=== PATIENT | female | born 1945 | race African-American/Black ===

== ENCOUNTER 2019-06-13 21:02 | Inpatient (IN) | payer OTHER ==
[~2019-06-13] VITALS: Ht 142.2 cm; Wt 74.6 kg
[~2019-06-13 21:02] MED LIST: ASPI-1393 PO; GLIP5TAB12; HYDR-4134 PO; INSU3INS8; NIFE30TA94 PO; PRIL10
[2019-06-13] MEDS ORDERED: ASPIRIN 81MG TABLET PO ONE (21:30)
[2019-06-13 21:50] LABS: BASOPHILS % 0.9 % (0.0-2.0); EOSINOPHILS % 4.2 % (0.0-5.0); HEMATOCRIT. 32.3 % (36.0-48.0); HEMOGLOBIN. 10.5 g/dL (12.0-16.0); LYMPHOCYTES % 22.5 % (20.0-50.0); MEAN CORPUSCULAR HEMOGLOBIN 25.4 pg (28.0-32.0); MEAN CORPUSCULAR VOLUME 78.4 fL (81.0-99.0); MEAN PLATELET VOLUME 7.8 fl (7.4-10.4); MONOCYTES % 8.1 % (2.0-8.0); NEUTROPHILS % 64.3 % (40.0-76.0); PLATELET 279 x1000/uL (130-400); RED BLOOD CELL COUNT 4.12 mill/uL (4.2-5.4); RED CELL DISTRIBUTION WIDTH 17.2 % (11.6-14.6)
[2019-06-13] MEDS: NITROGLYCERIN 0.4MG TABLET SL SL PRN (21:56)
[2019-06-13 21:57] LABS: CHLORIDE 110 mEq/L (98-107)
[2019-06-13] MEDS ORDERED: HYDRALAZINE 20MG/ML VIAL IV ONE (22:45)
[2019-06-14] VITALS (14 sets, daily range): BP systolic 156–232; BP diastolic 63–103
[2019-06-14] MEDS: NITROGLYCERIN 0.4MG TABLET SL SL PRN (01:46)
[2019-06-14] MEDS: CLONIDINE 0.1MG TABLET PO PRN ×3 (05:16→17:50)
[2019-06-14 09:55] LABS: CREATINE KINASE MB FRACTION 1.3 ng/mL (0.5-3.6)
[2019-06-14] MEDS ORDERED: DOCUSATE SODIUM 100MG CAPSULE PO PRN (13:15)
[2019-06-14] MEDS ORDERED: HYDROCODONE/ACETAMINOPHEN 5/325MG TABLET PO PRN (13:15)
[2019-06-14] MEDS ORDERED: ONDANSETRON HCL 4MG/2ML INJ IV PRN (13:15)
[2019-06-14] MEDS ORDERED: LORAZEPAM 0.5MG TABLET PO PRN (13:15)
[2019-06-14] MEDS ORDERED: IPRATROPIUM/ALBUTEROL 0.5-3(2.5)MG/3ML NEB HHN PRN (13:15)
[2019-06-14] MEDS ORDERED: METO-539 MT (14:18)
[2019-06-14] MEDS ORDERED: POTA10CA42 MT (14:18)
[2019-06-14] MEDS ORDERED: ISOS60TA4 MT (14:18)
[2019-06-14] MEDS ORDERED: CRES10 MT (14:18)
[2019-06-14] MEDS ORDERED: LORA10TA7 MT (14:18)
[2019-06-14] MEDS ORDERED: AMLO10TA4 MT (14:18)
[2019-06-14] MEDS ORDERED: LISI10TA5 MT (14:18)
[2019-06-14] MEDS ORDERED: CLON-457 PO (14:18)
[2019-06-14] MEDS ORDERED: MELA5TAB19 PO (14:18)
[2019-06-14] MEDS: CLOPIDOGREL 75MG TABLET PO SCH (15:43)
[2019-06-14] MEDS: ISOSORBIDE MONONITRATE 30MG TABLET SR 24HR PO SCH (15:44)
[2019-06-14] MEDS: ACETAMINOPHEN 325MG TABLET PO PRN (16:16)
[2019-06-14] MEDS: LABETALOL 5MG/ML SYR 20 MG/4 ML SYRINGE IV PRN (16:58)
[2019-06-14] MEDS ORDERED: DEXTROSE 50% WATER 50ML SYRINGE IV PRN (17:30)
[2019-06-14] MEDS: BLOOD SUGAR DIAGNOSTIC STRIP TEST SCH ×2 (17:53→20:31)
[2019-06-14] MEDS: INSULIN LISPRO 100 UNITS/ML SUBCUT SCH ×2 (18:25→20:43)
[2019-06-14] MEDS ORDERED: LABETALOL 5MG/ML SYR 20 MG/4 ML SYRINGE IV NR ×2 (18:27→18:30)
[2019-06-14] MEDS: AMLODIPINE 5MG TABLET PO SCH (20:26)
[2019-06-14] MEDS: METOPROLOL TARTRATE 50MG TABLET PO SCH (20:27)
[2019-06-14] MEDS ORDERED: ATORVASTATIN CALCIUM 20MG TABLET PO SCH (21:00)
[2019-06-14] MEDS ORDERED: NIFEDIPINE XL 30MG TAB PO SCH (21:00)
[2019-06-14] MEDS: HYDRALAZINE HCL 50MG TABLET PO SCH (21:39)
[2019-06-15] VITALS (12 sets, daily range): BP systolic 131–181; BP diastolic 49–84
[2019-06-15] MEDS: CLONIDINE 0.1MG TABLET PO PRN ×2 (00:16→10:49)
[2019-06-15] MEDS: LABETALOL 5MG/ML SYR 20 MG/4 ML SYRINGE IV PRN ×2 (00:17→10:50)
[2019-06-15] MEDS: ACETAMINOPHEN 325MG TABLET PO PRN (05:28)
[2019-06-15] MEDS: HYDRALAZINE HCL 50MG TABLET PO SCH ×2 (05:28→14:26)
[2019-06-15 07:23] LABS: BASOPHILS % 0.5 % (0.0-2.0); EOSINOPHILS % 6.9 % (0.0-5.0); HEMATOCRIT. 29.3 % (36.0-48.0); HEMOGLOBIN. 9.6 g/dL (12.0-16.0); MEAN CORPUSCULAR HEMOGLOBIN 25.8 pg (28.0-32.0); MEAN CORPUSCULAR VOLUME 78.8 fL (81.0-99.0); MEAN PLATELET VOLUME 8.2 fl (7.4-10.4); MONOCYTES % 10.4 % (2.0-8.0); NEUTROPHILS % 62.2 % (40.0-76.0); PLATELET 235 x1000/uL (130-400); RED BLOOD CELL COUNT 3.72 mill/uL (4.2-5.4); RED CELL DISTRIBUTION WIDTH 17.1 % (11.6-14.6)
[2019-06-15 07:28] LABS: CHLORIDE 107 mEq/L (98-107)
[2019-06-15 07:33] LABS: PHOSPHORUS 5.7 mg/dL (2.5-4.9)
[2019-06-15 07:35] LABS: LDL CHOLESTEROL 82 mg/dL (5-100)
[2019-06-15 07:36] LABS: CREATINE KINASE 75 IU/L (26-192); HDL CHOLESTEROL 45 mg/dL (40-59)
[2019-06-15] MEDS: INSULIN LISPRO 100 UNITS/ML SUBCUT SCH ×3 (08:00→18:15)
[2019-06-15] MEDS: BLOOD SUGAR DIAGNOSTIC STRIP TEST SCH ×3 (08:08→18:06)
[2019-06-15 08:34] LABS: BG BASE EXCESS -7.6 mmol/L (-2.0-2.0); BG CARBOXYHEMOGLOBIN 0.3 % (0.5-1.5); BG DEOXYHEMOGLOBIN 1.9 % (0.0-5.0); BG FRACTION INSPIRED OXYGEN 21; BG HCO3 ACT 16.1 mmol/L (22.0-26.0); BG OXYGEN SATURATION 98.1 % (92.0-98.5); BG OXYHEMOGLOBIN 97.8 % (94.0-97.0); BG PCO2 27.1 mmHg (35.0-45.0); BG PH 7.391 (7.350-7.450); BG PO2 110.9 mmHg (75.0-100.0); BG SAMPLE SITE RIGHT BRACHIAL; BG VENT MODE ROOM AIR
[2019-06-15] MEDS ORDERED: NIFEDIPINE XL 30MG TAB PO SCH ×2 (09:00→21:00)
[2019-06-15] MEDS ORDERED: ASPIRIN 81MG EC TABLET PO SCH (09:00)
[2019-06-15] MEDS: ISOSORBIDE MONONITRATE 30MG TABLET SR 24HR PO SCH (09:15)
[2019-06-15] MEDS: METOPROLOL TARTRATE 50MG TABLET PO SCH (09:15)
[2019-06-15] MEDS: AMLODIPINE 5MG TABLET PO SCH (09:15)
[2019-06-15] MEDS: CLOPIDOGREL 75MG TABLET PO SCH (09:15)
[2019-06-15 09:49] LABS: CLARITY URINE CLEAR (CLEAR); COLOR URINE YELLOW (YELLOW); KETONES URINE NEGATIVE (NEGATIVE); LEUKOCYTE ESTERASE URINE NEGATIVE (NEGATIVE); NITRITE URINE NEGATIVE (NEGATIVE); OCCULT BLOOD URINE NEGATIVE (NEGATIVE); PH URINE 6.5 (4.5-8.0); PROTEIN URINE 3+ (NEGATIVE); UROBILINOGEN URINE 0.2 E.U./dL (0.2-1.0)
[2019-06-15] MEDS: CITRIC ACID/SODIUM CITRATE SOLN 15ML UDC PO SCH ×3 (12:36→18:16)
[2019-06-15] MEDS: CALCIUM ACETATE 667MG CAPSULE PO SCH ×2 (12:36→18:16)
== END 2019-06-15 21:00 | disposition short-term general hospital (02) | DRG 311 ==
LOC: ER 21:02 → 5EST 22:32 → EDBEDREQ 22:33 → EDBEDREQSVC 22:33 → ENRESERV 22:50
PROVIDERS: ADMIT Internal Medicine; ATTEND Internal Medicine
DX: I24.8 Other forms of acute ischemic heart disease (principal); N18.6 End stage renal disease; E44.1 Mild protein-calorie malnutrition; I12.0 Hypertensive chronic kidney disease with stage 5 chronic kidney disease or end stage renal disease; E87.2 Acidosis; I25.119 Atherosclerotic heart disease of native coronary artery with unspecified angina pectoris; E78.5 Hyperlipidemia, unspecified; D50.9 Iron deficiency anemia, unspecified; E11.22 Type 2 diabetes mellitus with diabetic chronic kidney disease; F17.210 Nicotine dependence, cigarettes, uncomplicated; J44.9 Chronic obstructive pulmonary disease, unspecified; G47.00 Insomnia, unspecified; Z79.4 Long term (current) use of insulin; Z82.49 Family history of ischemic heart disease and other diseases of the circulatory system; Z86.73 Personal history of transient ischemic attack (TIA), and cerebral infarction without residual deficits; Z83.3 Family history of diabetes mellitus; Z68.36 Body mass index [BMI] 36.0-36.9, adult
CPT/HCPCS: 36415; 36600; 71045; 76770; 80048; 80061; 81003; 82375; 82550; 82553; 82805; 82962; 83036; 83735; 83880; 84100; 84484; 93005; 93306; 93970; 99285; J0360; J1815; J3490

== ENCOUNTER 2021-08-26 01:17 | Inpatient (IN) | payer OTHER ==
[~2021-08-26] VITALS: Ht 147.3 cm; Wt 39.9 kg
[~2021-08-26 01:17] MED LIST changes: +AMLO10TA4 MT; -ASPI-1393 PO; +ASPI-1497 PO; +CLON-457 PO; +CRES10 MT; +ISOS60TA76 MT; +LISI10TA26 MT; +LORA10TA7 MT; +MELA5TAB19 PO; +METO-539 MT; +POTA10CA42 MT
[2021-08-26] MEDS ORDERED: ACETAMINOPHEN 325MG TABLET PO STA (01:53)
[2021-08-26] MEDS ORDERED: SODIUM CHLORIDE 0.9% 1,000 ML IV ONE (02:00)
[2021-08-26] MEDS ORDERED: ENALAPRIL 2.5MG/2ML VIAL 2ML IV ONE (02:00)
[2021-08-26 02:23] LABS: BASOPHILS % 0.7 % (0.0-2.0); EOSINOPHILS % 4.8 % (0.0-5.0); HEMATOCRIT. 44.9 % (36.0-48.0); HEMOGLOBIN. 13.9 g/dL (12.0-16.0); LYMPHOCYTES % 26.1 % (20.0-50.0); MEAN CORPUSCULAR HEMOGLOBIN 24.8 pg (28.0-32.0); MEAN CORPUSCULAR VOLUME 80.2 fL (81.0-99.0); MEAN PLATELET VOLUME 7.9 fl (7.4-10.4); MONOCYTES % 7.8 % (2.0-8.0); NEUTROPHILS % 60.6 % (40.0-76.0); PLATELET 371 x1000/uL (130-400); RED CELL DISTRIBUTION WIDTH 22.8 % (11.6-14.6)
[2021-08-26 02:29] LABS: CHLORIDE 101 mEq/L (98-107)
[2021-08-26] MEDS ORDERED: KETOROLAC 15MG/ML VIAL IV ONE (02:45)
[2021-08-26] MEDS ORDERED: KETOROLAC 30MG/ML VIAL IV NR (03:00)
[2021-08-26] MEDS ORDERED: PIPERACILLIN/TAZ 3.375G PREMIX 50 ML IV ONE (03:45)
[2021-08-26] MEDS ORDERED: VANCOMYCIN 1 G PREMIX 200 ML IV ONE (03:45)
[2021-08-26 04:28] LABS: PLATELET ESTIMATE NORMAL
[2021-08-26] MEDS ORDERED: LABETALOL 5MG/ML SYR 20 MG/4 ML SYRINGE IV NR (04:45)
[2021-08-26] MEDS ORDERED: ONDANSETRON HCL 4MG/2ML INJ IV STA (05:30)
[2021-08-26] MEDS ORDERED: NICARDIPINE 100 MG in SODIUM CHLORIDE 0.9% 60 ML IV NR (05:30)
[2021-08-26] MEDS ORDERED: MORPHINE SULFATE 4 MG/ML CPJ (NOT FOR IM USE) IV STA (05:30)
[2021-08-26] MEDS ORDERED: NALOXONE HCL 0.4MG/ML VIAL IV PRN (11:30)
[2021-08-26] MEDS ORDERED: MORPHINE SULFATE 2 MG/ML CPJ (NOT FOR IM USE) IV PRN ×2 (11:30→19:30)
[2021-08-26] MEDS: HYDRALAZINE 20MG/ML VIAL IV PRN ×2 (12:26→17:02)
[2021-08-26] MEDS: HYDRALAZINE HCL 100MG TABLET PO SCH ×2 (15:37→21:21)
[2021-08-26 15:54] LABS: HEPATITIS B SURFACE ANTIGEN NEGATIVE
[2021-08-26 20:00] VITALS: BP 195/78
[2021-08-26] MEDS ORDERED: CLONIDINE 0.1MG TABLET PO PRN (20:30)
[2021-08-26] MEDS ORDERED: DIPHENHYDRAMINE 50MG/ML VIAL IV PRN (20:30)
[2021-08-26] MEDS ORDERED: ACETAMINOPHEN 325MG TABLET PO PRN ×2 (20:30)
[2021-08-26] MEDS ORDERED: HYDROMORPHONE HCL/PF 2MG/ML CPJ IV PRN (20:30)
[2021-08-26] MEDS ORDERED: MAGNESIUM/ALUMINUM HYDROXIDE/SIMETHICONE 30ML UDC PO PRN (20:30)
[2021-08-26] MEDS ORDERED: ONDANSETRON HCL 4MG/2ML INJ IV PRN (20:30)
[2021-08-26] MEDS ORDERED: ZOLPIDEM TARTRATE 5MG TABLET PO PRN (20:30)
[2021-08-26] MEDS ORDERED: IPRATROPIUM/ALBUTEROL 0.5-3(2.5)MG/3ML NEB NEB PRN (20:30)
[2021-08-26] MEDS ORDERED: ALTEPLASE 2MG/VIAL ITC SCH (21:00)
[2021-08-26] MEDS: GABAPENTIN 100MG CAPSULE PO SCH (21:20)
[2021-08-26] MEDS: SODIUM CHLORIDE 0.9% INJ 3ML FLUSH IVF SCH (21:21)
[2021-08-26 22:00] VITALS: BP 135/72
[2021-08-27] VITALS: BP 193/77
[2021-08-27] MEDS: HYDRALAZINE 20MG/ML VIAL IV PRN (00:50)
[2021-08-27 04:00] VITALS: BP 144/70
[2021-08-27] MEDS: GABAPENTIN 100MG CAPSULE PO SCH ×3 (06:12→21:54)
[2021-08-27] MEDS: HYDRALAZINE HCL 100MG TABLET PO SCH (06:12)
[2021-08-27] MEDS: SODIUM CHLORIDE 0.9% INJ 3ML FLUSH IVF SCH ×3 (06:13→21:54)
[2021-08-27 07:42] LABS: BASOPHILS % 0.6 % (0.0-2.0); EOSINOPHILS % 0.2 % (0.0-5.0); HEMATOCRIT. 41.8 % (36.0-48.0); HEMOGLOBIN. 12.9 g/dL (12.0-16.0); MEAN CORPUSCULAR HEMOGLOBIN 24.7 pg (28.0-32.0); MEAN CORPUSCULAR VOLUME 79.9 fL (81.0-99.0); MEAN PLATELET VOLUME 8.2 fl (7.4-10.4); MONOCYTES % 11.5 % (2.0-8.0); NEUTROPHILS % 73.7 % (40.0-76.0); PLATELET 343 x1000/uL (130-400); RED BLOOD CELL COUNT 5.23 mill/uL (4.2-5.4); RED CELL DISTRIBUTION WIDTH 23.1 % (11.6-14.6)
[2021-08-27 07:56] LABS: PHOSPHORUS 8.6 mg/dL (2.5-4.9)
[2021-08-27 08:00] VITALS: BP 169/64
[2021-08-27 12:00] VITALS: BP 196/76
[2021-08-27] MEDS: LISINOPRIL 10MG TABLET PO SCH (13:30)
[2021-08-27] MEDS ORDERED: CLONIDINE 0.2MG TABLET PO PRN (13:35)
[2021-08-27] MEDS: CLONIDINE 0.2MG TABLET PO SCH ×2 (15:42→21:54)
[2021-08-27] MEDS: AMLODIPINE 10MG TABLET PO SCH (15:47)
[2021-08-27 16:00] VITALS: BP 140/52
[2021-08-27] MEDS ORDERED: DEXTROSE 50% WATER 50ML SYRINGE IV PRN (16:15)
[2021-08-27] MEDS: BLOOD SUGAR DIAGNOSTIC STRIP TEST SCH ×2 (16:40→21:44)
[2021-08-27] MEDS: INSULIN LISPRO 100 UNITS/ML SUBCUT SCH ×2 (17:10→21:44)
[2021-08-27] MEDS: SEVELAMER CARBONATE 800 MG TABLET PO SCH (18:05)
[2021-08-27 20:00] VITALS: BP 116/42
[2021-08-28] VITALS: BP 101/44
[2021-08-28 04:00] VITALS: BP 161/66
[2021-08-28] MEDS: BLOOD SUGAR DIAGNOSTIC STRIP TEST SCH ×3 (06:34→16:40)
[2021-08-28] MEDS: INSULIN LISPRO 100 UNITS/ML SUBCUT SCH ×3 (06:34→17:00)
[2021-08-28] MEDS: GABAPENTIN 100MG CAPSULE PO SCH ×2 (06:55→14:46)
[2021-08-28] MEDS: CLONIDINE 0.2MG TABLET PO SCH ×2 (06:55→14:50)
[2021-08-28] MEDS: SODIUM CHLORIDE 0.9% INJ 3ML FLUSH IVF SCH ×2 (06:55→14:46)
[2021-08-28] MEDS: SEVELAMER CARBONATE 800 MG TABLET PO SCH ×3 (06:57→16:29)
[2021-08-28 07:45] LABS: BASOPHILS % 0.7 % (0.0-2.0); EOSINOPHILS % 3.7 % (0.0-5.0); HEMATOCRIT. 41.2 % (36.0-48.0); HEMOGLOBIN. 12.7 g/dL (12.0-16.0); LYMPHOCYTES % 14.5 % (20.0-50.0); MEAN CORPUSCULAR HEMOGLOBIN 24.9 pg (28.0-32.0); MEAN CORPUSCULAR VOLUME 80.9 fL (81.0-99.0); MONOCYTES % 10.9 % (2.0-8.0); NEUTROPHILS % 70.2 % (40.0-76.0); PLATELET 343 x1000/uL (130-400); RED BLOOD CELL COUNT 5.09 mill/uL (4.2-5.4); RED CELL DISTRIBUTION WIDTH 22.8 % (11.6-14.6)
[2021-08-28 08:00] VITALS: BP 190/84
[2021-08-28 08:24] LABS: PHOSPHORUS 9.9 mg/dL (2.5-4.9)
[2021-08-28] MEDS ORDERED: HEPARIN SODIUM 1,000 UNIT/1ML VIAL IV SCH (08:30)
[2021-08-28] MEDS: AMLODIPINE 10MG TABLET PO SCH (10:23)
[2021-08-28] MEDS: LISINOPRIL 10MG TABLET PO SCH (10:23)
[2021-08-28 12:00] VITALS: BP 135/64
[2021-08-28 16:00] VITALS: BP 109/53
[2021-08-28 17:01] VITALS: BP 109/53
== END 2021-08-28 18:35 | disposition home or self-care (01) | DRG 291 ==
LOC: ER 01:17 → 7EST 05:31 → EDBEDREQSVC 15:01 → ENRESERV 16:58 → ER 18:35
PROVIDERS: ADMIT Internal Medicine; ATTEND Internal Medicine
PROC: 5A1D70Z Performance of Urinary Filtration, Intermittent, Less than 6 Hours Per Day (ICD-10-PCS; principal; 2021-08-26)
PROC: 5A1D70Z Performance of Urinary Filtration, Intermittent, Less than 6 Hours Per Day (ICD-10-PCS; 2021-08-28)
DX: I13.2 Hypertensive heart and chronic kidney disease with heart failure and with stage 5 chronic kidney disease, or end stage renal disease (principal); N18.6 End stage renal disease; I50.33 Acute on chronic diastolic (congestive) heart failure; G93.40 Encephalopathy, unspecified; D64.9 Anemia, unspecified; E11.22 Type 2 diabetes mellitus with diabetic chronic kidney disease; F32.A Depression, unspecified; I25.10 Atherosclerotic heart disease of native coronary artery without angina pectoris; K57.30 Diverticulosis of large intestine without perforation or abscess without bleeding; N28.1 Cyst of kidney, acquired; E78.5 Hyperlipidemia, unspecified; E11.40 Type 2 diabetes mellitus with diabetic neuropathy, unspecified; E11.51 Type 2 diabetes mellitus with diabetic peripheral angiopathy without gangrene; E11.42 Type 2 diabetes mellitus with diabetic polyneuropathy; M54.9 Dorsalgia, unspecified; Z20.822 Contact with and (suspected) exposure to COVID-19; Z90.49 Acquired absence of other specified parts of digestive tract; Z95.1 Presence of aortocoronary bypass graft; Z99.2 Dependence on renal dialysis; Z98.51 Tubal ligation status; Z88.5 Allergy status to narcotic agent; Z79.899 Other long term (current) drug therapy; Z79.4 Long term (current) use of insulin; Z87.891 Personal history of nicotine dependence; Z79.82 Long term (current) use of aspirin
CPT/HCPCS: 36415; 71045; 74176; 80048; 80053; 82962; 83036; 83605; 83735; 83880; 84100; 84484; 85025; 86705; 86709; 86803; 87340; 87426; 93005; 99291; C9803; J0360; J1170; J1644; J1815; J1885; J2270; J2405; J2543; J2997; J3370; J3490; J7030; J7050; U0003; U0005

== ENCOUNTER 2021-08-31 12:22 | Inpatient (IN) | payer OTHER ==
[~2021-08-31] VITALS: Ht 147.3 cm; Wt 50.8 kg
[2021-08-31] MEDS ORDERED: SODIUM CHLORIDE 0.9% 1,000 ML IV ONE (13:00)
[2021-08-31] MEDS ORDERED: CLONIDINE 0.2MG TABLET PO ONE (13:15)
[2021-08-31] MEDS ORDERED: LORAZEPAM 2MG/ML CPJ IV ONE (14:30)
[2021-08-31 15:26] LABS: CHLORIDE 104 mEq/L (98-107)
[2021-08-31 15:29] LABS: HEMATOCRIT. 35.9 % (36.0-48.0); HEMOGLOBIN. 10.8 g/dL (12.0-16.0); MEAN CORPUSCULAR VOLUME 79.9 fL (81.0-99.0); MEAN PLATELET VOLUME 8.4 fl (7.4-10.4); PLATELET 221 x1000/uL (130-400); RED CELL DISTRIBUTION WIDTH 22.1 % (11.6-14.6)
[2021-08-31] MEDS ORDERED: ASPIRIN 300MG SUPP PR ONE (17:15)
[2021-08-31] MEDS ORDERED: HYDRALAZINE 20MG/ML VIAL IV ONE (17:15)
[2021-08-31] MEDS ORDERED: IPRATROPIUM/ALBUTEROL 0.5-3(2.5)MG/3ML NEB HHN PRN (17:30)
[2021-08-31] MEDS ORDERED: NICARDIPINE 50 MG in SODIUM CHLORIDE 0.9% 230 ML IV PRN (17:30)
[2021-08-31] MEDS ORDERED: ACETAMINOPHEN 325MG TABLET PO PRN (17:30)
[2021-08-31] MEDS ORDERED: DOCUSATE SODIUM 100MG CAPSULE PO PRN (17:30)
[2021-08-31] MEDS ORDERED: LACTULOSE 20G/30ML UDC PO NR (17:30)
[2021-08-31] MEDS ORDERED: ONDANSETRON HCL 4MG/2ML INJ IV PRN (17:30)
[2021-08-31 18:05] LABS: PLATELET ESTIMATE NORMAL
[2021-08-31] MEDS: NICARDIPINE 40MG/200ML PREMIX 200 ML IV PRN (22:14)
[2021-08-31] MEDS: ACETAMINOPHEN 325MG TABLET PO PRN (23:12)
[2021-09-01 05:37] LABS: HEMATOCRIT. 40.2 % (36.0-48.0); HEMOGLOBIN. 12.3 g/dL (12.0-16.0); MEAN CORPUSCULAR HEMOGLOBIN 24.3 pg (28.0-32.0); MEAN CORPUSCULAR VOLUME 79.9 fL (81.0-99.0); MEAN PLATELET VOLUME 8.2 fl (7.4-10.4); PLATELET 232 x1000/uL (130-400); RED BLOOD CELL COUNT 5.04 mill/uL (4.2-5.4)
[2021-09-01] MEDS: ACETAMINOPHEN 325MG TABLET PO PRN ×2 (06:06→13:30)
[2021-09-01] MEDS: LORAZEPAM 0.5MG TABLET PO PRN ×2 (08:32→13:29)
[2021-09-01] MEDS: NICARDIPINE 40MG/200ML PREMIX 200 ML IV PRN (09:18)
[2021-09-01 09:23] LABS: CLARITY URINE CLEAR (CLEAR); COLOR URINE YELLOW (YELLOW); KETONES URINE NEGATIVE (NEGATIVE); LEUKOCYTE ESTERASE URINE NEGATIVE (NEGATIVE); NITRITE URINE NEGATIVE (NEGATIVE); OCCULT BLOOD URINE NEGATIVE (NEGATIVE); PH URINE 7.5 (4.5-8.0); PROTEIN URINE 4+ (NEGATIVE); SPECIFIC GRAVITY URINE 1.014 (1.005-1.030); UROBILINOGEN URINE 0.2 E.U./dL (0.2-1.0)
[2021-09-01] MEDS ORDERED: NALOXONE HCL 0.4MG/ML VIAL IV PRN (10:00)
[2021-09-01] MEDS: HYDROCODONE/ACETAMINOPHEN 5/325MG TABLET PO PRN ×3 (10:16→21:58)
[2021-09-01] MEDS ORDERED: LISINOPRIL 40MG TABLET PO SCH (11:15)
[2021-09-01] MEDS ORDERED: AMLODIPINE 10MG TABLET PO SCH (11:15)
[2021-09-01] MEDS ORDERED: SORBITOL 70% SOLN 30ML PO NR (13:00)
[2021-09-01 13:46] LABS: PLATELET ESTIMATE NORMAL
[2021-09-01] MEDS ORDERED: HYDRALAZINE HCL 25MG TABLET PO SCH (14:00)
[2021-09-01] MEDS ORDERED: MAGNESIUM CITRATE 300ML SOLUTION PO NR (14:30)
[2021-09-01] MEDS ORDERED: NICARDIPINE 50 MG in SODIUM CHLORIDE 0.9% 250 ML IV PRN (15:00)
[2021-09-01] MEDS: CLONIDINE 0.1MG TABLET PO SCH (16:25)
[2021-09-01] MEDS: DOCUSATE SODIUM 100MG CAPSULE PO SCH (17:00)
[2021-09-01] MEDS ORDERED: METOPROLOL TARTRATE 50MG TABLET PO SCH (21:00)
[2021-09-01] MEDS: METOPROLOL TARTRATE 25MG TABLET PO SCH (21:59)
[2021-09-02] MEDS: CLONIDINE 0.1MG TABLET PO SCH ×3 (01:29→14:00)
[2021-09-02] MEDS: HYDROCODONE/ACETAMINOPHEN 5/325MG TABLET PO PRN ×2 (01:31→05:41)
[2021-09-02] MEDS ORDERED: ISOSORBIDE MONONITRATE 60MG TABLET SR 24HR PO SCH (09:00)
[2021-09-02] MEDS: LIDOCAINE 5% PATCH TOP SCH (10:00)
[2021-09-02] MEDS: ASPIRIN 81MG EC TABLET PO SCH (12:03)
[2021-09-02] MEDS: HYDROCODONE/ACETAMINOPHEN 10/325MG TABLET PO PRN ×2 (12:04→21:32)
[2021-09-02] MEDS: FOLIC ACID/VITAMIN B COMP W-C TABLET PO SCH (12:18)
[2021-09-02] MEDS: LISINOPRIL 10MG TABLET PO SCH (13:25)
[2021-09-02] MEDS: NIFEDIPINE XL 30MG TAB PO SCH (14:51)
[2021-09-02 15:06] VITALS: BP 174/74
[2021-09-02 15:50] VITALS: BP 158/57
[2021-09-02 18:10] VITALS: BP 171/91
[2021-09-02] MEDS: FLUOXETINE HCL 10 MG CAPSULE PO SCH (18:10)
[2021-09-02] MEDS: SEVELAMER CARBONATE 800 MG TABLET PO SCH (18:11)
[2021-09-02] MEDS: DOCUSATE SODIUM 100MG CAPSULE PO SCH ×2 (18:16→18:18)
[2021-09-02 20:00] VITALS: BP 155/85
[2021-09-02 21:05] LABS: BASOPHILS % 0.5 % (0.0-2.0); EOSINOPHILS % 9.7 % (0.0-5.0); HEMATOCRIT. 40.7 % (36.0-48.0); HEMOGLOBIN. 12.2 g/dL (12.0-16.0); LYMPHOCYTES % 17.6 % (20.0-50.0); MEAN CORPUSCULAR HEMOGLOBIN 24.6 pg (28.0-32.0); MEAN CORPUSCULAR VOLUME 82.2 fL (81.0-99.0); MEAN PLATELET VOLUME 7.9 fl (7.4-10.4); MONOCYTES % 13.2 % (2.0-8.0); PLATELET 201 x1000/uL (130-400); RED BLOOD CELL COUNT 4.96 mill/uL (4.2-5.4); RED CELL DISTRIBUTION WIDTH 21.8 % (11.6-14.6)
[2021-09-02 21:17] LABS: PHOSPHORUS 5.1 mg/dL (2.5-4.9)
[2021-09-02] MEDS: METOPROLOL TARTRATE 25MG TABLET PO SCH ×2 (21:31→21:40)
[2021-09-02] MEDS: CLONIDINE 0.2MG TABLET PO SCH ×2 (21:31→22:00)
[2021-09-02 22:00] VITALS: BP 160/70
[2021-09-02] MEDS ORDERED: CLONIDINE 0.2MG TABLET PO SCH (22:00)
[2021-09-03] VITALS (11 sets, daily range): BP systolic 117–181; BP diastolic 59–84
[2021-09-03] MEDS: HYDROCODONE/ACETAMINOPHEN 10/325MG TABLET PO PRN ×2 (03:25→13:40)
[2021-09-03 06:20] LABS: HEMATOCRIT. 38.8 % (36.0-48.0); HEMOGLOBIN. 12.2 g/dL (12.0-16.0); MEAN CORPUSCULAR HEMOGLOBIN 24.9 pg (28.0-32.0); MEAN CORPUSCULAR VOLUME 79.3 fL (81.0-99.0); MEAN PLATELET VOLUME 8.5 fl (7.4-10.4); PLATELET 231 x1000/uL (130-400); RED CELL DISTRIBUTION WIDTH 21.4 % (11.6-14.6)
[2021-09-03 06:35] LABS: PHOSPHORUS 6.4 mg/dL (2.5-4.9)
[2021-09-03] MEDS: CLONIDINE 0.2MG TABLET PO SCH (06:46)
[2021-09-03] MEDS: HYDROCODONE/ACETAMINOPHEN 5/325MG TABLET PO PRN (06:47)
[2021-09-03] MEDS: SEVELAMER CARBONATE 800 MG TABLET PO SCH ×3 (08:50→17:46)
[2021-09-03] MEDS: FOLIC ACID/VITAMIN B COMP W-C TABLET PO SCH (08:50)
[2021-09-03] MEDS: DOCUSATE SODIUM 100MG CAPSULE PO SCH ×2 (08:50→17:46)
[2021-09-03] MEDS: LISINOPRIL 10MG TABLET PO SCH (08:51)
[2021-09-03] MEDS: FLUOXETINE HCL 10 MG CAPSULE PO SCH (08:51)
[2021-09-03] MEDS: METOPROLOL TARTRATE 25MG TABLET PO SCH (08:51)
[2021-09-03] MEDS: ASPIRIN 81MG EC TABLET PO SCH (08:51)
[2021-09-03] MEDS: NIFEDIPINE XL 30MG TAB PO SCH (09:58)
[2021-09-03] MEDS ORDERED: NIFE-33 PO (10:42)
[2021-09-03] MEDS ORDERED: METO25TA6 PO (10:42)
[2021-09-03] MEDS ORDERED: FLUO10CA28 PO (10:42)
[2021-09-03] MEDS ORDERED: CLON0.2T PO ×2 (10:42)
[2021-09-03] MEDS ORDERED: LIDO700A30 TOP (10:42)
[2021-09-03] MEDS: LIDOCAINE 5% PATCH TOP SCH (11:32)
[2021-09-03 13:09] LABS: PLATELET ESTIMATE NORMAL
[2021-09-03] MEDS ORDERED: CLONIDINE 0.1MG TABLET PO SCH (14:00)
[2021-09-03] MEDS ORDERED: HYDRALAZINE HCL 25MG TABLET PO SCH (14:00)
[2021-09-03] MEDS ORDERED: CLON0.1T MT (14:58)
== END 2021-09-03 18:45 | disposition home or self-care (01) | DRG 280 ==
LOC: ER 12:32 → MICUSO 17:01 → EDBEDREQ 17:12 → CANRESERV 22:52 → ENRESERV 22:52 → EDBEDREQTM 09-01 00:01 → EDBEDREQSVC 09-01 00:01 → 5EST 09-02 13:59
PROVIDERS: ADMIT Internal Medicine; ATTEND Internal Medicine
PROC: 5A1D70Z Performance of Urinary Filtration, Intermittent, Less than 6 Hours Per Day (ICD-10-PCS; principal; 2021-09-02)
DX: I21.4 Non-ST elevation (NSTEMI) myocardial infarction (principal); N18.6 End stage renal disease; I13.2 Hypertensive heart and chronic kidney disease with heart failure and with stage 5 chronic kidney disease, or end stage renal disease; I16.1 Hypertensive emergency; I50.9 Heart failure, unspecified; D25.9 Leiomyoma of uterus, unspecified; E11.22 Type 2 diabetes mellitus with diabetic chronic kidney disease; E11.51 Type 2 diabetes mellitus with diabetic peripheral angiopathy without gangrene; E78.5 Hyperlipidemia, unspecified; F17.210 Nicotine dependence, cigarettes, uncomplicated; I25.10 Atherosclerotic heart disease of native coronary artery without angina pectoris; J44.9 Chronic obstructive pulmonary disease, unspecified; Z20.822 Contact with and (suspected) exposure to COVID-19; K56.41 Fecal impaction; D64.9 Anemia, unspecified; N28.1 Cyst of kidney, acquired; Z79.899 Other long term (current) drug therapy; Z82.49 Family history of ischemic heart disease and other diseases of the circulatory system; Z87.440 Personal history of urinary (tract) infections; Z90.49 Acquired absence of other specified parts of digestive tract; Z95.1 Presence of aortocoronary bypass graft; Z99.2 Dependence on renal dialysis; Z88.5 Allergy status to narcotic agent
CPT/HCPCS: 36415; 71045; 74176; 80048; 80053; 81003; 82140; 82962; 83735; 83880; 84100; 84484; 85025; 87426; 93005; 93306; 99291; J0360; J3490; J7030; J7050

== ENCOUNTER 2022-03-11 09:59 | Inpatient (IN) | payer OTHER ==
[~2022-03-11] VITALS: Ht 165.1 cm; Wt 46.5 kg
[2022-03-11] VITALS (10 sets, daily range): BP systolic 153–185; BP diastolic 61–90
[~2022-03-11 09:59] MED LIST changes: -AMLO10TA4 MT; -CLON-457 PO; +CLON0.1T MT; +FLUO10CA28 PO; +LIDO700A30 TOP; -METO-539 MT; +METO25TA6 PO; +NIFE-33 PO; -NIFE30TA94 PO; -POTA10CA42 MT
[2022-03-11] MEDS ORDERED: ONDANSETRON HCL 4MG/2ML INJ IV STA ×2 (10:13→17:14)
[2022-03-11 10:43] LABS: BASOPHILS % 0.4 % (0.0-2.0); EOSINOPHILS % 1.5 % (0.0-5.0); HEMOGLOBIN. 14.3 g/dL (12.0-16.0); MEAN CORPUSCULAR HEMOGLOBIN 25.9 pg (28.0-32.0); MEAN CORPUSCULAR VOLUME 83.6 fL (81.0-99.0); MEAN PLATELET VOLUME 7.6 fl (7.4-10.4); MONOCYTES % 9.2 % (2.0-8.0); NEUTROPHILS % 77.9 % (40.0-76.0); PLATELET 261 x1000/uL (130-400); RED BLOOD CELL COUNT 5.51 mill/uL (4.2-5.4); RED CELL DISTRIBUTION WIDTH 20.2 % (11.6-14.6)
[2022-03-11 10:52] LABS: CHLORIDE 97 mEq/L (98-107)
[2022-03-11] MEDS ORDERED: LABETALOL 5MG/ML SYR 20 MG/4 ML SYRINGE IV ONE (11:15)
[2022-03-11] MEDS ORDERED: NITROGLYCERIN OINT 1GM/INCH UDPKT TD ONE (13:45)
[2022-03-11] MEDS ORDERED: HYDRALAZINE 20MG/ML VIAL IV ONE ×2 (13:45→15:45)
[2022-03-11] MEDS ORDERED: NICARDIPINE 40MG/200ML PREMIX 200 ML IV STA (16:37)
[2022-03-11] MEDS ORDERED: NICARDIPINE 40MG/200ML PREMIX 200 ML IV SCH (16:45)
[2022-03-11] MEDS ORDERED: MORPHINE SULFATE 4 MG/ML CPJ (NOT FOR IM USE) IV STA (17:14)
[2022-03-11] MEDS ORDERED: IPRATROPIUM/ALBUTEROL 0.5-3(2.5)MG/3ML NEB HHN PRN (19:15)
[2022-03-11] MEDS ORDERED: LORAZEPAM 1MG TABLET PO PRN (19:15)
[2022-03-11] MEDS ORDERED: LORAZEPAM 1MG TABLET PO NR (19:15)
[2022-03-11] MEDS ORDERED: DOCUSATE SODIUM 100MG CAPSULE PO PRN (19:15)
[2022-03-11] MEDS ORDERED: GUAIFENESIN 200MG/10ML SUGAR FREE UDC PO PRN (19:15)
[2022-03-11] MEDS ORDERED: ACETAMINOPHEN 325MG TABLET PO PRN ×2 (19:15)
[2022-03-11] MEDS ORDERED: MAGNESIUM/ALUMINUM HYDROXIDE/SIMETHICONE 30ML UDC PO PRN (19:15)
[2022-03-11] MEDS ORDERED: NICARDIPINE 40MG/200ML PREMIX 200 ML IV PRN ×2 (20:15→21:30)
[2022-03-11] MEDS ORDERED: DEXTROSE 50% WATER 50ML SYRINGE IV PRN (21:00)
[2022-03-11] MEDS: INSULIN LISPRO 100 UNITS/ML SUBCUT SCH (21:00)
[2022-03-11] MEDS: BLOOD SUGAR DIAGNOSTIC STRIP TEST SCH (21:00)
[2022-03-11] MEDS: ONDANSETRON HCL 4MG/2ML INJ IV PRN (21:49)
[2022-03-11 22:10] LABS: PHOSPHORUS 7.1 mg/dL (2.5-4.9)
[2022-03-11] MEDS: CLONIDINE 0.1MG TABLET PO PRN (22:10)
[2022-03-12] VITALS (102 sets, daily range): BP systolic 106–171; BP diastolic 51–99
[2022-03-12] MEDS ORDERED: NICARDIPINE 100 MG in SODIUM CHLORIDE 0.9% 60 ML IV PRN ×2
[2022-03-12] MEDS ORDERED: HYDROCODONE/ACETAMINOPHEN 5/325MG TABLET PO PRN (01:15)
[2022-03-12] MEDS ORDERED: AMLODIPINE 5MG TABLET PO SCH (01:15)
[2022-03-12] MEDS ORDERED: HYDRALAZINE 20MG/ML VIAL IV SCH (01:15)
[2022-03-12] MEDS: METOCLOPRAMIDE HCL 10MG/2ML VIAL IV SCH ×5 (01:44→23:25)
[2022-03-12] MEDS: NICARDIPINE 40MG/200ML PREMIX 200 ML IV PRN ×3 (01:46→08:35)
[2022-03-12] MEDS ORDERED: DIAZEPAM 5 MG/ML 2ML CPJ IV PRN (02:00)
[2022-03-12] MEDS: ONDANSETRON HCL 4MG/2ML INJ IV PRN ×3 (04:23→14:30)
[2022-03-12 05:13] LABS: BASOPHILS % 0.8 % (0.0-2.0); EOSINOPHILS % 0.1 % (0.0-5.0); HEMATOCRIT. 44.5 % (36.0-48.0); HEMOGLOBIN. 13.9 g/dL (12.0-16.0); LYMPHOCYTES % 8.6 % (20.0-50.0); MEAN CORPUSCULAR VOLUME 82.9 fL (81.0-99.0); MEAN PLATELET VOLUME 8.3 fl (7.4-10.4); MONOCYTES % 8.4 % (2.0-8.0); NEUTROPHILS % 82.1 % (40.0-76.0); PLATELET 278 x1000/uL (130-400); RED BLOOD CELL COUNT 5.37 mill/uL (4.2-5.4); RED CELL DISTRIBUTION WIDTH 20.2 % (11.6-14.6)
[2022-03-12 05:22] LABS: CHLORIDE 98 mEq/L (98-107)
[2022-03-12 05:39] LABS: CREATINE KINASE 33 IU/L (26-192); HDL CHOLESTEROL 82 mg/dL (40-59); LDL CHOLESTEROL 36 mg/dL (5-100)
[2022-03-12] MEDS: CLONIDINE 0.1MG TABLET PO PRN (06:01)
[2022-03-12] MEDS: BLOOD SUGAR DIAGNOSTIC STRIP TEST SCH ×4 (06:09→21:00)
[2022-03-12] MEDS ORDERED: HYDRALAZINE 20MG/ML VIAL IV PRN (06:30)
[2022-03-12] MEDS: INSULIN LISPRO 100 UNITS/ML SUBCUT SCH ×4 (06:32→21:00)
[2022-03-12] MEDS: MINOXIDIL 2.5MG TABLET PO SCH ×2 (08:14→22:00)
[2022-03-12] MEDS: CARVEDILOL 6.25 MG TABLET PO SCH ×2 (08:14→21:59)
[2022-03-12] MEDS: LISINOPRIL 40MG TABLET PO SCH (08:15)
[2022-03-12] MEDS: AMLODIPINE 5MG TABLET PO SCH ×2 (08:15→17:36)
[2022-03-12] MEDS: CLONIDINE HCL 0.3MG/24HR PATCH TD SCH ×2 (08:15→21:46)
[2022-03-12] MEDS: MORPHINE SULFATE 2 MG/ML CPJ (NOT FOR IM USE) IV PRN ×2 (08:23→12:39)
[2022-03-12] MEDS: ENOXAPARIN 30MG/0.3ML SYR SUBCUT SCH (08:23)
[2022-03-12] MEDS: LEVETIRACETAM 500MG TABLET PO SCH ×2 (08:29→21:58)
[2022-03-12 08:50] LABS: BG BASE EXCESS 0.4 mmol/L (-2.0-2.0); BG CARBOXYHEMOGLOBIN 0.9 % (0.5-1.5); BG DEOXYHEMOGLOBIN 1.3 % (0.0-5.0); BG FRACTION INSPIRED OXYGEN 30; BG HCO3 ACT 25.4 mmol/L (22.0-26.0); BG METHEMOGLOBIN 0.5 % (0.0-1.5); BG OXYGEN SATURATION 98.7 % (92.0-98.5); BG OXYHEMOGLOBIN 97.3 % (94.0-97.0); BG PCO2 42.4 mmHg (35.0-45.0); BG PH 7.396 (7.350-7.450); BG PO2 140.8 mmHg (75.0-100.0); BG SAMPLE SITE RIGHT RADIAL; BG TOTAL HEMOGLOBIN 14.3 g/dL (12.0-18.0); BG VENT MODE NASAL CANNULA
[2022-03-12] MEDS ORDERED: CLONIDINE HCL 0.3MG/24HR PATCH TD SCH (09:00)
[2022-03-12] MEDS ORDERED: NALOXONE HCL 0.4MG/ML VIAL IV PRN (09:00)
[2022-03-12] MEDS ORDERED: NICARDIPINE 50 MG in SODIUM CHLORIDE 0.9% 250 ML IV PRN (09:00)
[2022-03-12] MEDS ORDERED: LISI40TA13 MT (09:44)
[2022-03-12] MEDS ORDERED: CINA30TA5 PO (09:44)
[2022-03-12] MEDS ORDERED: AMLO10TA80 PO (09:44)
[2022-03-12] MEDS ORDERED: CLOP75TA33 PO (09:44)
[2022-03-12] MEDS ORDERED: METO-539 MT (09:44)
[2022-03-12] MEDS ORDERED: KEPP500 PO (09:44)
[2022-03-12] MEDS ORDERED: HYDR-4005 PO (09:44)
[2022-03-12] MEDS ORDERED: FOLI0.8T7 MT (09:44)
[2022-03-12] MEDS ORDERED: MINO2.5T2 PO (09:44)
[2022-03-12] MEDS ORDERED: SEVE800T8 MT (09:44)
[2022-03-12] MEDS ORDERED: ROSU20TA2 MT (09:50)
[2022-03-12] MEDS ORDERED: SODIUM POLYSTYRENE SULFONATE 15 G/60 ML BOT PO SCH (10:00)
[2022-03-12] MEDS ORDERED: DEXT 5%/LACTATED RINGERS 1,000 ML IV SCH (11:15)
[2022-03-12 11:51] LABS: INR 1.2; PROTHROMBIN TIME 13.2 sec (9.6-11.0)
[2022-03-12 13:45] LABS: HEPATITIS B SURFACE ANTIGEN NEGATIVE
[2022-03-12 14:05] LABS: AMYLASE 275 IU/L (25-115)
[2022-03-12] MEDS ORDERED: DOCUSATE SODIUM SUGAR FREE 100MG/10ML UDC NG PRN (15:00)
[2022-03-12] MEDS ORDERED: DOCUSATE SODIUM 100MG CAPSULE NG PRN (15:00)
[2022-03-13] VITALS (79 sets, daily range): BP systolic 121–179; BP diastolic 57–98
[2022-03-13 05:38] LABS: HEMATOCRIT. 44.2 % (36.0-48.0); MEAN CORPUSCULAR HEMOGLOBIN 26.3 pg (28.0-32.0); MEAN CORPUSCULAR VOLUME 83.2 fL (81.0-99.0); MEAN PLATELET VOLUME 7.8 fl (7.4-10.4); PLATELET 281 x1000/uL (130-400); RED BLOOD CELL COUNT 5.32 mill/uL (4.2-5.4); RED CELL DISTRIBUTION WIDTH 20.1 % (11.6-14.6)
[2022-03-13] MEDS: METOCLOPRAMIDE HCL 10MG/2ML VIAL IV SCH ×3 (06:07→17:21)
[2022-03-13] MEDS: BLOOD SUGAR DIAGNOSTIC STRIP TEST SCH ×4 (06:07→21:11)
[2022-03-13] MEDS: INSULIN LISPRO 100 UNITS/ML SUBCUT SCH ×4 (06:08→21:00)
[2022-03-13] MEDS: AMLODIPINE 5MG TABLET PO SCH ×2 (08:04→17:21)
[2022-03-13] MEDS: LEVETIRACETAM 500MG TABLET PO SCH ×2 (08:04→21:09)
[2022-03-13] MEDS: LISINOPRIL 40MG TABLET PO SCH (08:05)
[2022-03-13] MEDS: CARVEDILOL 6.25 MG TABLET PO SCH ×2 (08:05→21:09)
[2022-03-13] MEDS: MINOXIDIL 2.5MG TABLET PO SCH (08:05)
[2022-03-13] MEDS: ENOXAPARIN 30MG/0.3ML SYR SUBCUT SCH (08:07)
[2022-03-13] MEDS ORDERED: BISACODYL 10MG SUPP PR SCH (08:45)
[2022-03-13 09:52] LABS: PLATELET ESTIMATE NORMAL
[2022-03-13 11:36] LABS: CLARITY URINE CLEAR (CLEAR); COLOR URINE YELLOW (YELLOW); KETONES URINE NEGATIVE (NEGATIVE); LEUKOCYTE ESTERASE URINE NEGATIVE (NEGATIVE); NITRITE URINE NEGATIVE (NEGATIVE); OCCULT BLOOD URINE NEGATIVE (NEGATIVE); PH URINE >=9.0 (4.5-8.0); PROTEIN URINE 4+ (NEGATIVE); SPECIFIC GRAVITY URINE 1.014 (1.005-1.030); UROBILINOGEN URINE 0.2 E.U./dL (0.2-1.0)
[2022-03-13 12:13] LABS: *AMPHETAMINES SCREEN URINE NEGATIVE (NEGATIVE); *BARBITURATES SCREEN URINE NEGATIVE (NEGATIVE); *BENZODIAZEPINES SCREEN URINE NEGATIVE (NEGATIVE); *COCAINE SCREEN URINE NEGATIVE (NEGATIVE); CANNABINOID URINE SCREEN NEGATIVE (NEGATIVE); METHADONE URINE SCREEN NEGATIVE (NEGATIVE); OPIATES URINE SCREEN PRESUMTIVE POSITIVE (NEGATIVE); PHENCYCLIDINE URINE SCREEN NEGATIVE (NEGATIVE)
[2022-03-13] MEDS ORDERED: HYDRALAZINE HCL 50MG TABLET PO SCH (13:00)
[2022-03-13] MEDS: CLONIDINE 0.1MG TABLET PO SCH ×2 (14:31→21:11)
[2022-03-13] MEDS ORDERED: MINOXIDIL 2.5MG TABLET PO SCH (21:00)
== END 2022-03-13 22:30 | disposition short-term general hospital (02) | DRG 280 ==
LOC: ER 10:12 → MICUNO 17:17 → EDBEDREQTM 17:21 → EDBEDREQSVC 17:21 → EDBEDREQ 17:21 → ENRESERV 19:34
PROVIDERS: ADMIT Specialist; ATTEND Family Medicine Adult Medicine
PROC: 5A1D70Z Performance of Urinary Filtration, Intermittent, Less than 6 Hours Per Day (ICD-10-PCS; principal; 2022-03-12)
PROC: 5A1D70Z Performance of Urinary Filtration, Intermittent, Less than 6 Hours Per Day (ICD-10-PCS; 2022-03-13)
DX: I21.4 Non-ST elevation (NSTEMI) myocardial infarction (principal); J96.01 Acute respiratory failure with hypoxia; N18.6 End stage renal disease; K85.90 Acute pancreatitis without necrosis or infection, unspecified; I13.2 Hypertensive heart and chronic kidney disease with heart failure and with stage 5 chronic kidney disease, or end stage renal disease; I16.1 Hypertensive emergency; N17.9 Acute kidney failure, unspecified; N25.81 Secondary hyperparathyroidism of renal origin; D64.9 Anemia, unspecified; E78.5 Hyperlipidemia, unspecified; I25.10 Atherosclerotic heart disease of native coronary artery without angina pectoris; D25.9 Leiomyoma of uterus, unspecified; E11.22 Type 2 diabetes mellitus with diabetic chronic kidney disease; E83.39 Other disorders of phosphorus metabolism; E87.5 Hyperkalemia; F32.A Depression, unspecified; F41.9 Anxiety disorder, unspecified; G40.909 Epilepsy, unspecified, not intractable, without status epilepticus; I35.0 Nonrheumatic aortic (valve) stenosis; I50.9 Heart failure, unspecified; K56.41 Fecal impaction; R77.8 Other specified abnormalities of plasma proteins; R74.8 Abnormal levels of other serum enzymes; Z20.822 Contact with and (suspected) exposure to COVID-19; I24.9 Acute ischemic heart disease, unspecified; E11.42 Type 2 diabetes mellitus with diabetic polyneuropathy; H26.9 Unspecified cataract; Z79.02 Long term (current) use of antithrombotics/antiplatelets; Z79.82 Long term (current) use of aspirin; Z79.84 Long term (current) use of oral hypoglycemic drugs; Z79.899 Other long term (current) drug therapy; Z82.49 Family history of ischemic heart disease and other diseases of the circulatory system; Z87.891 Personal history of nicotine dependence; I25.2 Old myocardial infarction; Z90.49 Acquired absence of other specified parts of digestive tract; Z95.1 Presence of aortocoronary bypass graft; Z99.2 Dependence on renal dialysis; Z88.1 Allergy status to other antibiotic agents; Z88.8 Allergy status to other drugs, medicaments and biological substances; Z30.2 Encounter for sterilization; Z79.4 Long term (current) use of insulin; G62.9 Polyneuropathy, unspecified
CPT/HCPCS: 36415; 36600; 71045; 74018; 74176; 74181; 80048; 80053; 80061; 80076; 80305; 81003; 82150; 82375; 82550; 82805; 82962; 82977; 83605; 83735; 84100; 84145; 84443; 84484; 85025; 86705; 86709; 86803; 87340; 87426; 93005; 93306; 97162; 97166; 97535; 99285; C9803; J0360; J1650; J1815; J2270; J2405; J2765; J3490; J7050; J7121

== ENCOUNTER 2022-08-30 20:17 | Emergency (ER) | payer OTHER ==
[~2022-08-30] VITALS: Ht 162.6 cm; Wt 47.2 kg
[~2022-08-30 20:17] MED LIST changes: +AMLO10TA80 PO; +CINA30TA5 PO; +CLOP75TA33 PO; +FOLI0.8T7 MT; +HYDR-4005 PO; +KEPP500 PO; +LISI40TA13 MT; +METO-539 MT; +MINO2.5T2 PO; +ROSU20TA2 MT; +SEVE800T8 MT
[2022-08-30] MEDS ORDERED: HYDRALAZINE 20MG/ML VIAL IV NR (23:00)
[2022-08-30 23:17] LABS: CHLORIDE 96 mEq/L (98-107)
[2022-08-30 23:26] LABS: HEMOGLOBIN. 10.3 g/dL (12.0-16.0); MEAN CORPUSCULAR HEMOGLOBIN 29.3 pg (28.0-32.0); MEAN CORPUSCULAR VOLUME 88.2 fL (81.0-99.0); MEAN PLATELET VOLUME 7.9 fl (7.4-10.4); PLATELET 210 x1000/uL (130-400); RED BLOOD CELL COUNT 3.51 mill/uL (4.2-5.4); RED CELL DISTRIBUTION WIDTH 18.2 % (11.6-14.6)
[2022-08-31] MEDS ORDERED: DIAZEPAM 2 MG TABLET PO ONE (01:30)
[2022-08-31] MEDS ORDERED: DIAZEPAM 2 MG TABLET PO NR (01:45)
[2022-08-31] MEDS ORDERED: CARVEDILOL 6.25 MG TABLET PO ONE (03:15)
[2022-08-31] MEDS ORDERED: ISOSORBIDE MONONITRATE 30MG TABLET SR 24HR PO SCH (03:15)
[2022-08-31 04:12] LABS: PLATELET ESTIMATE NORMAL
[2022-08-31 08:50] VITALS: BP 174/77
== END 2022-08-31 08:51 | disposition short-term general hospital (02) ==
LOC: ER 20:17 → CANBEDREQ 08-31 09:07
DX: R07.89 Other chest pain (principal); I10 Essential (primary) hypertension; I50.9 Heart failure, unspecified; I12.0 Hypertensive chronic kidney disease with stage 5 chronic kidney disease or end stage renal disease; E11.22 Type 2 diabetes mellitus with diabetic chronic kidney disease; N18.6 End stage renal disease; Z99.2 Dependence on renal dialysis; Z79.899 Other long term (current) drug therapy; Z20.822 Contact with and (suspected) exposure to COVID-19
CPT/HCPCS: 36415; 71045; 80053; 82962; 83880; 84484; 85025; 85379; 87426; 93005; 96374; 99285; C9803; J0360

== ENCOUNTER 2022-11-02 03:18 | Emergency (ER) | payer OTHER ==
[~2022-11-02] VITALS: Ht 149.9 cm; Wt 50.0 kg
[2022-11-02] MEDS ORDERED: NITROGLYCERIN 0.2MG/HR PATCH TOP ONE (05:00)
[2022-11-02] MEDS ORDERED: CLONIDINE 0.2MG TABLET PO ONE (05:00)
[2022-11-02] MEDS ORDERED: NITROGLYCERIN 0.2MG/HR PATCH TOP NR (05:00)
[2022-11-02] MEDS ORDERED: HYDRALAZINE 20MG/ML VIAL IV ONE (05:00)
[2022-11-02 05:22] LABS: HEMATOCRIT. 35.4 % (36.0-48.0); HEMOGLOBIN. 11.5 g/dL (12.0-16.0); MEAN CORPUSCULAR HEMOGLOBIN 27.8 pg (28.0-32.0); MEAN CORPUSCULAR VOLUME 85.4 fL (81.0-99.0); MEAN PLATELET VOLUME 8.3 fl (7.4-10.4); PLATELET 262 x1000/uL (130-400); RED BLOOD CELL COUNT 4.14 mill/uL (4.2-5.4); RED CELL DISTRIBUTION WIDTH 16.5 % (11.6-14.6)
[2022-11-02 05:28] LABS: CHLORIDE 97 mEq/L (98-107)
[2022-11-02 07:16] LABS: PLATELET ESTIMATE NORMAL
[2022-11-02 11:30] VITALS: BP 184/73
== END 2022-11-02 14:05 | disposition short-term general hospital (02) ==
LOC: ER 03:36
DX: I16.1 Hypertensive emergency (principal); I10 Essential (primary) hypertension; E11.9 Type 2 diabetes mellitus without complications; Z20.822 Contact with and (suspected) exposure to COVID-19; Z88.6 Allergy status to analgesic agent; Z88.9 Allergy status to unspecified drugs, medicaments and biological substances; Z88.5 Allergy status to narcotic agent; Z79.899 Other long term (current) drug therapy; Z86.59 Personal history of other mental and behavioral disorders; Z79.82 Long term (current) use of aspirin
CPT/HCPCS: 36415; 71045; 80053; 83880; 84484; 85025; 87426; 93005; 96374; 99285; C9803; J0360

== ENCOUNTER 2023-01-28 21:03 | Emergency (ER) | payer OTHER ==
[2023-01-28 22:57] LABS: BASOPHILS % 1.3 % (0.0-2.0); EOSINOPHILS % 5.1 % (0.0-5.0); HEMATOCRIT. 26.2 % (36.0-48.0); HEMOGLOBIN. 8.4 g/dL (12.0-16.0); MEAN CORPUSCULAR HEMOGLOBIN 26.7 pg (28.0-32.0); MEAN PLATELET VOLUME 8.6 fl (7.4-10.4); MONOCYTES % 13.6 % (2.0-8.0); PLATELET 235 x1000/uL (130-400); RED BLOOD CELL COUNT 3.15 mill/uL (4.2-5.4); RED CELL DISTRIBUTION WIDTH 19.4 % (11.6-14.6)
[2023-01-28 23:16] LABS: CHLORIDE 97 mEq/L (98-107)
[2023-01-29 00:38] LABS: CLARITY URINE CLEAR (CLEAR); COLOR URINE YELLOW (YELLOW); KETONES URINE NEGATIVE (NEGATIVE); LEUKOCYTE ESTERASE URINE NEGATIVE (NEGATIVE); NITRITE URINE NEGATIVE (NEGATIVE); OCCULT BLOOD URINE NEGATIVE (NEGATIVE); PH URINE 8.5 (4.5-8.0); PROTEIN URINE 3+ (NEGATIVE); SPECIFIC GRAVITY URINE 1.011 (1.005-1.030); UROBILINOGEN URINE 0.2 E.U./dL (0.2-1.0)
[2023-01-29] MEDS ORDERED: ACETAMINOPHEN 325MG TABLET PO ONE (01:30)
[2023-01-29 05:24] VITALS: BP 138/58
== END 2023-01-29 05:35 | disposition home or self-care (01) ==
LOC: ER 21:03
DX: S06.0XAA Concussion with loss of consciousness status unknown, initial encounter (principal); I25.2 Old myocardial infarction; I10 Essential (primary) hypertension; E11.9 Type 2 diabetes mellitus without complications; Z88.5 Allergy status to narcotic agent; Z88.6 Allergy status to analgesic agent; Z88.9 Allergy status to unspecified drugs, medicaments and biological substances; Z86.59 Personal history of other mental and behavioral disorders; Z79.899 Other long term (current) drug therapy; W18.30XA Fall on same level, unspecified, initial encounter; Y93.89 Activity, other specified; Y92.89 Other specified places as the place of occurrence of the external cause; Y99.8 Other external cause status
CPT/HCPCS: 36415; 72170; 80053; 81003; 84484; 85025; 93005; 99285

== ENCOUNTER 2023-02-25 20:28 | Emergency (ER) | payer OTHER ==
[2023-02-25 23:27] LABS: EOSINOPHILS % 2.5 % (0.0-5.0); HEMOGLOBIN. 9.2 g/dL (12.0-16.0); LYMPHOCYTES % 13.1 % (20.0-50.0); MEAN CORPUSCULAR HEMOGLOBIN 27.6 pg (28.0-32.0); MEAN CORPUSCULAR VOLUME 83.6 fL (81.0-99.0); MEAN PLATELET VOLUME 8.2 fl (7.4-10.4); MONOCYTES % 12.3 % (2.0-8.0); NEUTROPHILS % 71.1 % (40.0-76.0); PLATELET 453 x1000/uL (130-400); RED BLOOD CELL COUNT 3.35 mill/uL (4.2-5.4); RED CELL DISTRIBUTION WIDTH 19.1 % (11.6-14.6)
[2023-02-25 23:36] LABS: CHLORIDE 96 mEq/L (98-107)
[2023-02-26] MEDS ORDERED: LEVETIRACETAM 1000MG PREMIX 100 ML IV ONE (00:15)
[2023-02-26] MEDS ORDERED: LORAZEPAM 1MG TABLET PO ONE (01:45)
[2023-02-26 06:39] VITALS: BP 132/65; PULSE 82; RESP 13; TEMP 98.3
== END 2023-02-26 07:05 | disposition short-term general hospital (02) ==
LOC: ER 20:28
DX: G40.509 Epileptic seizures related to external causes, not intractable, without status epilepticus (principal); G93.40 Encephalopathy, unspecified; I25.2 Old myocardial infarction; I10 Essential (primary) hypertension; E11.22 Type 2 diabetes mellitus with diabetic chronic kidney disease; N18.9 Chronic kidney disease, unspecified; Z20.822 Contact with and (suspected) exposure to COVID-19; Z79.82 Long term (current) use of aspirin; Z88.5 Allergy status to narcotic agent; Z88.6 Allergy status to analgesic agent; Z88.9 Allergy status to unspecified drugs, medicaments and biological substances; Z79.899 Other long term (current) drug therapy; Z86.59 Personal history of other mental and behavioral disorders
CPT/HCPCS: 99285; 70450; 71045; 80053; 85025; 84484; 36415; 93005; 96365; 87426; J1953; C9803

== ENCOUNTER 2023-03-23 13:41 | Emergency (ER) | payer OTHER ==
[~2023-03-23] VITALS: Ht 165.1 cm; Wt 61.0 kg
[2023-03-23 14:13] VITALS: TEMP 98.5; O2SAT 98
[2023-03-23] MEDS ORDERED: SODIUM CHLORIDE 0.9% 1,000 ML IV ONE (14:15)
[2023-03-23] MEDS ORDERED: CLONIDINE 0.2MG TABLET PO ONE (15:00)
[2023-03-23] MEDS ORDERED: CLONIDINE 0.1MG TABLET PO NR (15:15)
[2023-03-23 15:20] LABS: BASOPHILS % 1.3 % (0.0-2.0); EOSINOPHILS % 2.5 % (0.0-5.0); HEMATOCRIT. 34.9 % (36.0-48.0); HEMOGLOBIN. 11.3 g/dL (12.0-16.0); LYMPHOCYTES % 22.3 % (20.0-50.0); MEAN CORPUSCULAR HEMOGLOBIN 27.1 pg (28.0-32.0); MEAN CORPUSCULAR VOLUME 83.7 fL (81.0-99.0); MEAN PLATELET VOLUME 7.1 fl (7.4-10.4); MONOCYTES % 10.4 % (2.0-8.0); NEUTROPHILS % 63.5 % (40.0-76.0); PLATELET 281 x1000/uL (130-400); RED BLOOD CELL COUNT 4.17 mill/uL (4.2-5.4); RED CELL DISTRIBUTION WIDTH 20.4 % (11.6-14.6)
[2023-03-23 15:30] LABS: INR 1.1; PARTIAL THROMBOPLASTIN TIME 34.4 sec (23.4-31.0); PROTHROMBIN TIME 11.4 sec (9.6-11.0)
[2023-03-23 15:32] LABS: CHLORIDE 98 mEq/L (98-107)
[2023-03-23] MEDS ORDERED: ASPIRIN 81MG TABLET PO ONE (17:00)
[2023-03-23] MEDS ORDERED: CLONIDINE 0.1MG TABLET PO ONE (17:30)
[2023-03-23] MEDS ORDERED: HYDRALAZINE 20MG/ML VIAL IV ONE (17:30)
[2023-03-23] MEDS ORDERED: CARVEDILOL 6.25 MG TABLET PO SCH (18:30)
[2023-03-23 20:46] VITALS: BP 151/63; PULSE 78; RESP 14
[2023-03-23] MEDS ORDERED: LEVETIRACETAM 500MG TABLET PO SCH (21:00)
[2023-03-23] MEDS ORDERED: ATORVASTATIN CALCIUM 40MG TABLET PO SCH (21:00)
[2023-03-23] MEDS ORDERED: AMLODIPINE 10MG TABLET PO SCH (21:00)
[2023-03-23] MEDS ORDERED: MINOXIDIL 2.5MG TABLET PO SCH (21:00)
[2023-03-23] MEDS ORDERED: POLYETHYLENE GLYCOL 3350 (17GM) 1 DOSE PACK PO SCH (21:00)
[2023-03-23] MEDS ORDERED: LISINOPRIL 40MG TABLET PO SCH (21:00)
[2023-03-23] MEDS ORDERED: HYDRALAZINE HCL 50MG TABLET PO SCH (22:00)
[2023-03-24] MEDS ORDERED: ISOSORBIDE MONONITRATE 30MG TABLET SR 24HR PO SCH (09:00)
== END 2023-03-23 20:57 | disposition short-term general hospital (02) ==
LOC: ER 13:41 → CANBEDREQ 18:58 → ER 20:57
DX: R41.82 Altered mental status, unspecified (principal); I10 Essential (primary) hypertension; I12.0 Hypertensive chronic kidney disease with stage 5 chronic kidney disease or end stage renal disease; E11.22 Type 2 diabetes mellitus with diabetic chronic kidney disease; N18.6 End stage renal disease; I25.2 Old myocardial infarction; Z99.2 Dependence on renal dialysis; Z79.899 Other long term (current) drug therapy
CPT/HCPCS: 99285; 96374; 70450; 71045; 96361; 80053; 82962; 83880; 85025; 85610; 85730; 84484; 36415; 93005; J0360; J7030

== ENCOUNTER 2023-04-07 22:14 | Inpatient (IN) | payer OTHER ==
[~2023-04-07] VITALS: Ht 157.5 cm; Wt 54.4 kg
[2023-04-07 22:16] VITALS: O2SAT 98
[2023-04-07] MEDS ORDERED: MORPHINE SULFATE 4 MG/ML CPJ (NOT FOR IM USE) IV STA (23:05)
[2023-04-07] MEDS ORDERED: ONDANSETRON HCL 4MG/2ML INJ IV STA (23:05)
[2023-04-07] MEDS ORDERED: SODIUM CHLORIDE 0.9% 1,000 ML IV ONE (23:15)
[2023-04-07 23:39] LABS: CHLORIDE 95 mEq/L (98-107); INDEX HEMOLYSI 2 (1-3); INDEX ICTERIC 1 (1-4); INDEX LIPEMIC 1 (1-3); POTASSIUM 5.3 mEq/L (3.5-5.1); SODIUM 129 mEq/L (136-145)
[2023-04-07 23:40] LABS: HEMOGLOBIN. 9.3 g/dL (12.0-16.0); MEAN CORPUSCULAR HEMOGLOBIN 27.4 pg (28.0-32.0); MEAN CORPUSCULAR HGB CONC 33.2 g/dL (31.0-37.0); MEAN CORPUSCULAR VOLUME 82.6 fL (81.0-99.0); MEAN PLATELET VOLUME 8.3 fl (7.4-10.4); PLATELET 280 x1000/uL (130-400); RED BLOOD CELL COUNT 3.39 mill/uL (4.2-5.4); RED CELL DISTRIBUTION WIDTH 20.6 % (11.6-14.6); WHITE BLOOD COUNT 5.6 x1000/uL (4.5-11.0)
[2023-04-07 23:45] LABS: DIFFERENTIAL COMMENT 1
[2023-04-08] VITALS (9 sets, daily range): BP systolic 110–145; BP diastolic 52–79; PULSE 72–86; RESP 16–18; TEMP 97.1–97.9
[2023-04-08] LABS: ALANINE AMINOTRANSFERASE 12 IU/L (13-61); ALBUMIN 3.4 g/dL (3.4-5.0); ASPARTATE AMINOTRANSFERASE 13 IU/L (15-37); BILIRUBIN TOTAL 0.3 mg/dL (0.1-1.0); CALCIUM 9.1 mg/dL (8.5-10.1); CARBON DIOXIDE 24 mEq/L (21-32); GLUCOSE 87 mg/dL (70-105); NT PRO B-TYPE NATRIURETIC PEP 34251 pg/mL (5-125); UREA NITROGEN BLOOD 61 mg/dL (7-21)
[2023-04-08 00:07] LABS: TROPONIN I HIGH SENSITIVITY 141 ng/L (<54)
[2023-04-08 00:27] LABS: PLATELET ESTIMATE NORMAL
[2023-04-08 01:50] LABS: TROPONIN I HIGH SENSITIVITY 124 ng/L (<54)
[2023-04-08] MEDS ORDERED: LABETALOL 5MG/ML SYR 20 MG/4 ML SYRINGE IV ONE (03:30)
[2023-04-08] MEDS ORDERED: ONDANSETRON HCL 4MG/2ML INJ IV ONE (03:30)
[2023-04-08] MEDS ORDERED: IPRATROPIUM/ALBUTEROL 0.5-3(2.5)MG/3ML NEB HHN PRN (04:45)
[2023-04-08] MEDS ORDERED: ZOLPIDEM TARTRATE 5MG TABLET PO PRN (04:45)
[2023-04-08] MEDS ORDERED: LORAZEPAM 0.5MG TABLET PO PRN (04:45)
[2023-04-08] MEDS ORDERED: GUAIFENESIN 200MG/10ML SUGAR FREE UDC PO PRN (04:45)
[2023-04-08] MEDS ORDERED: CLONIDINE 0.1MG TABLET PO PRN (04:45)
[2023-04-08] MEDS ORDERED: ONDANSETRON HCL 4MG/2ML INJ IV PRN (04:45)
[2023-04-08] MEDS ORDERED: NITROGLYCERIN 0.4MG TABLET SL SL NR (05:45)
[2023-04-08 05:53] LABS: INDEX HEMOLYSI 1 (1-3)
[2023-04-08] MEDS ORDERED: SODIUM CHLORIDE 0.9% 1,000 ML IV NR (06:00)
[2023-04-08] MEDS ORDERED: IOHEXOL-350 100 ML BOTTLE ONE (06:04)
[2023-04-08 06:06] LABS: T4 FREE 0.74 ng/dL (0.76-1.46); THYROID STIMULATING HORMONE 1.1 uIU/mL (0.36-3.74)
[2023-04-08 06:23] LABS: FOLIC ACID (FOLATE) SERUM >20 ng/mL ng/mL (>5.38); VITAMIN B12 SERUM 569 pg/mL (211-911)
[2023-04-08] MEDS: LISINOPRIL 40MG TABLET PO SCH (06:45)
[2023-04-08] MEDS ORDERED: NITROGLYCERIN 50MCG/ML 10ML VIAL (CATH LAB) IV ONE (07:00)
[2023-04-08] MEDS ORDERED: NICARDIPINE 100MCG/ML 10ML VIAL (CATH LAB) IV ONE (07:00)
[2023-04-08] MEDS: ENOXAPARIN 30MG/0.3ML SYR SUBCUT SCH (09:00)
[2023-04-08] MEDS: AMLODIPINE 10MG TABLET PO SCH (09:00)
[2023-04-08 09:41] LABS: CREATINE KINASE MB FRACTION 9.6 ng/mL (0.5-3.6)
[2023-04-08 09:42] LABS: CREATINE KINASE MB FRACTION 3.1 ng/mL (0.5-3.6)
[2023-04-08] MEDS: ASPIRIN 81MG TABLET PO SCH (12:00)
[2023-04-08] MEDS ORDERED: DIPHENHYDRAMINE 50MG/ML VIAL ONE (12:26)
[2023-04-08] MEDS ORDERED: HEPARIN 1000 UNITS/ML 10ML ONE (12:26)
[2023-04-08] MEDS ORDERED: VERAPAMIL HCL 2.5 MG/1 ML 2ML VIAL IV ONE (12:26)
[2023-04-08] MEDS ORDERED: MIDAZOLAM HCL 2 MG/2 ML VIAL ONE (12:26)
[2023-04-08] MEDS ORDERED: FENTANYL CITRATE/PF 50MCG/ML 2ML VIAL ONE (12:26)
[2023-04-08] MEDS ORDERED: LIDOCAINE HCL 1% 20ML VIAL (Pyxis) INJ ONE (12:26)
[2023-04-08] MEDS ORDERED: IODIXANOL 320MG/ML 100 ML BOTTLE IV ONE ×2 (12:26→13:21)
[2023-04-08] MEDS ORDERED: ATROPINE SULFATE 1MG/10ML SYR IV PRN (13:45)
[2023-04-08] MEDS ORDERED: ONDANSETRON HCL 4MG/2ML INJ ONE (13:55)
[2023-04-08 17:58] LABS: INR 1.1; PROTHROMBIN TIME 11.4 sec (9.6-11.0)
[2023-04-08 18:19] LABS: CREATINE KINASE MB FRACTION 13.1 ng/mL (0.5-3.6)
[2023-04-08] MEDS: LEVETIRACETAM 500MG TABLET PO SCH (21:53)
[2023-04-08] MEDS: ATORVASTATIN CALCIUM 40MG TABLET PO SCH (21:53)
[2023-04-08] MEDS: EPOETIN ALFA 4000UNITS/ML VIAL SUBCUT SCH (21:54)
[2023-04-09] VITALS (63 sets, daily range): BP systolic 87–189; BP diastolic 46–93; PULSE 66–105; RESP 8–29; TEMP 97.7–100.9
[2023-04-09 06:45] LABS: HEMATOCRIT. 32.8 % (36.0-48.0); HEMOGLOBIN. 10.6 g/dL (12.0-16.0); MEAN CORPUSCULAR HEMOGLOBIN 26.9 pg (28.0-32.0); MEAN CORPUSCULAR HGB CONC 32.2 g/dL (31.0-37.0); MEAN CORPUSCULAR VOLUME 83.6 fL (81.0-99.0); MEAN PLATELET VOLUME 8.7 fl (7.4-10.4); PLATELET 297 x1000/uL (130-400); RED BLOOD CELL COUNT 3.93 mill/uL (4.2-5.4); RED CELL DISTRIBUTION WIDTH 20.7 % (11.6-14.6); WHITE BLOOD COUNT 6.6 x1000/uL (4.5-11.0)
[2023-04-09 06:56] LABS: POTASSIUM 5.2 mEq/L (3.5-5.1)
[2023-04-09 07:02] LABS: CALCIUM 9.3 mg/dL (8.5-10.1); CREATININE 4.9 mg/dL (0.6-1.3); PHOSPHORUS 4.4 mg/dL (2.5-4.9)
[2023-04-09 07:12] LABS: DIFFERENTIAL COMMENT 1
[2023-04-09] MEDS: DEXTROSE 50% WATER 50ML SYRINGE IV PRN (07:53)
[2023-04-09] MEDS: INSULIN LISPRO 100 UNITS/ML SUBCUT SCH ×4 (07:59→21:00)
[2023-04-09] MEDS ORDERED: DEXTROSE 50% WATER 50ML SYRINGE IV PRN (08:00)
[2023-04-09] MEDS ORDERED: METOPROLOL TARTRATE 25MG TABLET PO NR (08:15)
[2023-04-09] MEDS: NITROGLYCERIN 0.4MG TABLET SL SL PRN ×2 (08:22→09:31)
[2023-04-09] MEDS ORDERED: MORPHINE SULFATE 2 MG/ML CPJ (NOT FOR IM USE) IV NR (08:30)
[2023-04-09] MEDS ORDERED: NITROGLYCERIN 0.4MG TABLET SL SL PRN (08:30)
[2023-04-09 09:38] LABS: BASOPHILS % 0.6 % (0.0-2.0); EOSINOPHILS % 2.5 % (0.0-5.0); HEMATOCRIT. 32.2 % (36.0-48.0); HEMOGLOBIN. 10.3 g/dL (12.0-16.0); LYMPHOCYTES % 7.6 % (20.0-50.0); MEAN CORPUSCULAR HEMOGLOBIN 26.4 pg (28.0-32.0); MEAN CORPUSCULAR HGB CONC 31.9 g/dL (31.0-37.0); MEAN CORPUSCULAR VOLUME 82.9 fL (81.0-99.0); MEAN PLATELET VOLUME 8.1 fl (7.4-10.4); MONOCYTES % 10.5 % (2.0-8.0); NEUTROPHILS % 78.8 % (40.0-76.0); PLATELET 298 x1000/uL (130-400); RED BLOOD CELL COUNT 3.89 mill/uL (4.2-5.4); RED CELL DISTRIBUTION WIDTH 21.4 % (11.6-14.6); WHITE BLOOD COUNT 7.8 x1000/uL (4.5-11.0)
[2023-04-09] MEDS: METOPROLOL TARTRATE 25MG TABLET PO SCH ×2 (09:42→20:34)
[2023-04-09 09:43] LABS: CHLORIDE 102 mEq/L (98-107); INDEX HEMOLYSI 1 (1-3); INDEX ICTERIC 1 (1-4); INDEX LIPEMIC 1 (1-3); POTASSIUM 5.1 mEq/L (3.5-5.1); SODIUM 134 mEq/L (136-145)
[2023-04-09] MEDS: FOLIC ACID/VITAMIN B COMP W-C TABLET PO SCH (09:43)
[2023-04-09] MEDS: ASPIRIN 81MG TABLET PO SCH (09:43)
[2023-04-09] MEDS: ENOXAPARIN 30MG/0.3ML SYR SUBCUT SCH (09:43)
[2023-04-09] MEDS: AMLODIPINE 10MG TABLET PO SCH (09:43)
[2023-04-09] MEDS: LISINOPRIL 40MG TABLET PO SCH (09:43)
[2023-04-09] MEDS: LEVETIRACETAM 500MG TABLET PO SCH ×2 (09:43→20:34)
[2023-04-09] MEDS: CLOPIDOGREL 75MG TABLET PO SCH (09:43)
[2023-04-09 09:54] LABS: ALANINE AMINOTRANSFERASE 14 IU/L (13-61); ALBUMIN 2.8 g/dL (3.4-5.0); AMYLASE 92 IU/L (25-115); ASPARTATE AMINOTRANSFERASE 21 IU/L (15-37); BILIRUBIN TOTAL 0.5 mg/dL (0.1-1.0); CALCIUM 8.7 mg/dL (8.5-10.1); CARBON DIOXIDE 22 mEq/L (21-32); CREATINE KINASE 71 IU/L (26-192); GLUCOSE 139 mg/dL (70-105); PROTEIN TOTAL 6.8 g/dL (6.0-8.3); UREA NITROGEN BLOOD 41 mg/dL (7-21)
[2023-04-09 10:19] LABS: CREATININE 5.3 mg/dL (0.6-1.3); TROPONIN I HIGH SENSITIVITY 2938 ng/L (<54)
[2023-04-09 10:37] LABS: INR 1.1; PROTHROMBIN TIME 11.7 sec (9.6-11.0)
[2023-04-09] MEDS: BLOOD SUGAR DIAGNOSTIC STRIP TEST SCH ×3 (11:15→20:29)
[2023-04-09 12:45] LABS: TROPONIN I HIGH SENSITIVITY 2728 ng/L (<54)
[2023-04-09] MEDS: HYDRALAZINE HCL 50MG TABLET PO SCH ×2 (13:20→22:00)
[2023-04-09] MEDS: ACETAMINOPHEN 325MG TABLET PO PRN (13:20)
[2023-04-09] MEDS ORDERED: LACTULOSE 20G/30ML UDC PO NR (13:30)
[2023-04-09] MEDS ORDERED: NA PHOS,M-B/NA PHOS,DI-BA ENEMA 118ML PR PRN (13:30)
[2023-04-09] MEDS: DOCUSATE SODIUM 100MG CAPSULE PO SCH (16:15)
[2023-04-09 18:19] LABS: PLATELET ESTIMATE NORMAL
[2023-04-09] MEDS: ATORVASTATIN CALCIUM 40MG TABLET PO SCH (20:33)
[2023-04-09] MEDS: SENNOSIDES 8.6MG TABLET PO SCH (20:34)
[2023-04-10] VITALS (69 sets, daily range): BP systolic 85–205; BP diastolic 24–127; PULSE 67–90; RESP 9–30; TEMP 97.6–99
[2023-04-10] MEDS: DEXTROSE 50% WATER 50ML SYRINGE IV PRN (05:42)
[2023-04-10] MEDS: HYDRALAZINE HCL 50MG TABLET PO SCH (05:42)
[2023-04-10 05:53] LABS: BASOPHILS % 0.7 % (0.0-2.0); EOSINOPHILS % 2.9 % (0.0-5.0); HEMATOCRIT. 30.4 % (36.0-48.0); HEMOGLOBIN. 9.7 g/dL (12.0-16.0); LYMPHOCYTES % 9.9 % (20.0-50.0); MEAN CORPUSCULAR HEMOGLOBIN 26.7 pg (28.0-32.0); MEAN CORPUSCULAR HGB CONC 31.9 g/dL (31.0-37.0); MEAN CORPUSCULAR VOLUME 83.7 fL (81.0-99.0); MEAN PLATELET VOLUME 8.8 fl (7.4-10.4); MONOCYTES % 11.8 % (2.0-8.0); NEUTROPHILS % 74.7 % (40.0-76.0); PLATELET 272 x1000/uL (130-400); RED BLOOD CELL COUNT 3.64 mill/uL (4.2-5.4); RED CELL DISTRIBUTION WIDTH 20.7 % (11.6-14.6); WHITE BLOOD COUNT 7.6 x1000/uL (4.5-11.0)
[2023-04-10 06:01] LABS: POTASSIUM 5.4 mEq/L (3.5-5.1)
[2023-04-10 06:11] LABS: ALBUMIN 2.7 g/dL (3.4-5.0); BILIRUBIN DIRECT 0.1 mg/dL (0.0-0.2); BILIRUBIN TOTAL 0.4 mg/dL (0.1-1.0); CALCIUM 9.3 mg/dL (8.5-10.1); PHOSPHORUS 5.1 mg/dL (2.5-4.9); PROTEIN TOTAL 6.7 g/dL (6.0-8.3)
[2023-04-10 06:16] LABS: CREATININE 6.6 mg/dL (0.6-1.3)
[2023-04-10] MEDS: BLOOD SUGAR DIAGNOSTIC STRIP TEST SCH ×4 (06:28→20:12)
[2023-04-10] MEDS: INSULIN LISPRO 100 UNITS/ML SUBCUT SCH ×4 (06:29→21:00)
[2023-04-10] MEDS ORDERED: CALCITRIOL 0.25MCG CAPSULE PO SCH (09:00)
[2023-04-10] MEDS: AMLODIPINE 10MG TABLET PO SCH (10:04)
[2023-04-10] MEDS: DOCUSATE SODIUM 100MG CAPSULE PO SCH ×2 (10:04→18:13)
[2023-04-10] MEDS: FOLIC ACID/VITAMIN B COMP W-C TABLET PO SCH (10:05)
[2023-04-10] MEDS: ENOXAPARIN 30MG/0.3ML SYR SUBCUT SCH (10:05)
[2023-04-10] MEDS: ASPIRIN 81MG TABLET PO SCH (10:06)
[2023-04-10] MEDS: ISOSORBIDE MONONITRATE 30MG TABLET SR 24HR PO SCH (10:06)
[2023-04-10] MEDS: LEVETIRACETAM 500MG TABLET PO SCH ×2 (10:06→20:11)
[2023-04-10] MEDS: CLOPIDOGREL 75MG TABLET PO SCH (10:07)
[2023-04-10] MEDS: LISINOPRIL 40MG TABLET PO SCH (10:07)
[2023-04-10] MEDS: METOPROLOL TARTRATE 25MG TABLET PO SCH ×2 (10:07→20:11)
[2023-04-10] MEDS: ACETAMINOPHEN 325MG TABLET PO PRN (13:38)
[2023-04-10] MEDS: HYDRALAZINE HCL 100MG TABLET PO SCH ×2 (13:38→21:56)
[2023-04-10] MEDS ORDERED: LACTULOSE 20G/30ML UDC PO NR (16:00)
[2023-04-10] MEDS: SENNOSIDES 8.6MG TABLET PO SCH (20:11)
[2023-04-10] MEDS: ATORVASTATIN CALCIUM 40MG TABLET PO SCH (20:12)
[2023-04-10] MEDS: EPOETIN ALFA 4000UNITS/ML VIAL SUBCUT SCH (20:12)
[2023-04-11] VITALS (46 sets, daily range): BP systolic 108–162; BP diastolic 35–88; PULSE 59–84; RESP 11–26; TEMP 97.6–98.5
[2023-04-11] MEDS: NITROGLYCERIN 0.4MG TABLET SL SL PRN (00:07)
[2023-04-11] MEDS: BLOOD SUGAR DIAGNOSTIC STRIP TEST SCH ×4 (05:27→21:34)
[2023-04-11] MEDS: HYDRALAZINE HCL 100MG TABLET PO SCH ×3 (05:27→21:34)
[2023-04-11 05:33] LABS: BASOPHILS % 0.7 % (0.0-2.0); EOSINOPHILS % 2.8 % (0.0-5.0); HEMATOCRIT. 28.6 % (36.0-48.0); HEMOGLOBIN. 9.2 g/dL (12.0-16.0); LYMPHOCYTES % 7.7 % (20.0-50.0); MEAN CORPUSCULAR HGB CONC 32.2 g/dL (31.0-37.0); MEAN CORPUSCULAR VOLUME 83.8 fL (81.0-99.0); MEAN PLATELET VOLUME 8.6 fl (7.4-10.4); MONOCYTES % 12.2 % (2.0-8.0); NEUTROPHILS % 76.6 % (40.0-76.0); PLATELET 248 x1000/uL (130-400); RED BLOOD CELL COUNT 3.42 mill/uL (4.2-5.4); RED CELL DISTRIBUTION WIDTH 20.8 % (11.6-14.6); WHITE BLOOD COUNT 7.4 x1000/uL (4.5-11.0)
[2023-04-11] MEDS: INSULIN LISPRO 100 UNITS/ML SUBCUT SCH ×4 (05:34→21:00)
[2023-04-11 05:37] LABS: INDEX HEMOLYSI 1 (1-3); INDEX ICTERIC 1 (1-4); INDEX LIPEMIC 1 (1-3)
[2023-04-11 05:59] LABS: ALANINE AMINOTRANSFERASE 20 IU/L (13-61); ALBUMIN 2.7 g/dL (3.4-5.0); ASPARTATE AMINOTRANSFERASE 18 IU/L (15-37); BILIRUBIN TOTAL 0.5 mg/dL (0.1-1.0); CALCIUM 9.4 mg/dL (8.5-10.1); CARBON DIOXIDE 24 mEq/L (21-32); CHLORIDE 103 mEq/L (98-107); CREATININE 4.9 mg/dL (0.6-1.3); GLUCOSE 164 mg/dL (70-105); POTASSIUM 4.3 mEq/L (3.5-5.1); SODIUM 135 mEq/L (136-145); UREA NITROGEN BLOOD 30 mg/dL (7-21)
[2023-04-11] MEDS: FOLIC ACID/VITAMIN B COMP W-C TABLET PO SCH (09:03)
[2023-04-11] MEDS: CLOPIDOGREL 75MG TABLET PO SCH (09:03)
[2023-04-11] MEDS: DOCUSATE SODIUM 100MG CAPSULE PO SCH ×2 (09:03→17:00)
[2023-04-11] MEDS: LEVETIRACETAM 500MG TABLET PO SCH ×2 (09:03→21:33)
[2023-04-11] MEDS: LISINOPRIL 40MG TABLET PO SCH (09:04)
[2023-04-11] MEDS: ASPIRIN 81MG TABLET PO SCH (09:04)
[2023-04-11] MEDS: ISOSORBIDE MONONITRATE 30MG TABLET SR 24HR PO SCH (09:04)
[2023-04-11] MEDS: METOPROLOL TARTRATE 25MG TABLET PO SCH ×2 (09:05→21:33)
[2023-04-11] MEDS: ENOXAPARIN 30MG/0.3ML SYR SUBCUT SCH (09:06)
[2023-04-11] MEDS: AMLODIPINE 10MG TABLET PO SCH (09:07)
[2023-04-11] MEDS: SENNOSIDES 8.6MG TABLET PO SCH (21:33)
[2023-04-11] MEDS: ATORVASTATIN CALCIUM 40MG TABLET PO SCH (21:33)
== END 2023-04-12 00:01 | disposition short-term general hospital (02) | DRG 280 ==
LOC: ER 22:14 → 7WST 04-08 02:49 → MICUSO 04-09 09:00 → 7WST 04-11 22:40
PROVIDERS: ADMIT Internal Medicine; ATTEND Internal Medicine
PROC: 4A023N7 Measurement of Cardiac Sampling and Pressure, Left Heart, Percutaneous Approach (ICD-10-PCS; principal; 2023-04-08)
PROC: B211YZZ Fluoroscopy of Multiple Coronary Arteries using Other Contrast (ICD-10-PCS; 2023-04-08)
PROC: B212YZZ Fluoroscopy of Single Coronary Artery Bypass Graft using Other Contrast (ICD-10-PCS; 2023-04-08)
PROC: B41FYZZ Fluoroscopy of Right Lower Extremity Arteries using Other Contrast (ICD-10-PCS; 2023-04-08)
PROC: B218YZZ Fluoroscopy of Left Internal Mammary Bypass Graft using Other Contrast (ICD-10-PCS; 2023-04-08)
PROC: B310YZZ Fluoroscopy of Thoracic Aorta using Other Contrast (ICD-10-PCS; 2023-04-08)
PROC: 5A1D70Z Performance of Urinary Filtration, Intermittent, Less than 6 Hours Per Day (ICD-10-PCS; 2023-04-08)
PROC: 5A1D70Z Performance of Urinary Filtration, Intermittent, Less than 6 Hours Per Day (ICD-10-PCS; 2023-04-10)
PROC: 5A1D70Z Performance of Urinary Filtration, Intermittent, Less than 6 Hours Per Day (ICD-10-PCS; 2023-04-11)
DX: I21.4 Non-ST elevation (NSTEMI) myocardial infarction (principal); N18.6 End stage renal disease; E87.1 Hypo-osmolality and hyponatremia; G40.509 Epileptic seizures related to external causes, not intractable, without status epilepticus; I13.2 Hypertensive heart and chronic kidney disease with heart failure and with stage 5 chronic kidney disease, or end stage renal disease; E11.22 Type 2 diabetes mellitus with diabetic chronic kidney disease; D72.10 Eosinophilia, unspecified; E11.649 Type 2 diabetes mellitus with hypoglycemia without coma; E78.00 Pure hypercholesterolemia, unspecified; E21.3 Hyperparathyroidism, unspecified; F32.A Depression, unspecified; K21.9 Gastro-esophageal reflux disease without esophagitis; D63.1 Anemia in chronic kidney disease; F03.90 Unspecified dementia, unspecified severity, without behavioral disturbance, psychotic disturbance, mood disturbance, and anxiety; I25.10 Atherosclerotic heart disease of native coronary artery without angina pectoris; I27.20 Pulmonary hypertension, unspecified; I50.9 Heart failure, unspecified; J44.9 Chronic obstructive pulmonary disease, unspecified; Z99.2 Dependence on renal dialysis; Z79.4 Long term (current) use of insulin; Z79.82 Long term (current) use of aspirin; Z79.84 Long term (current) use of oral hypoglycemic drugs; Z79.899 Other long term (current) drug therapy; Z86.73 Personal history of transient ischemic attack (TIA), and cerebral infarction without residual deficits; Z87.891 Personal history of nicotine dependence; Z90.49 Acquired absence of other specified parts of digestive tract; Z95.1 Presence of aortocoronary bypass graft; Z82.49 Family history of ischemic heart disease and other diseases of the circulatory system
CPT/HCPCS: 36415; 71045; 71275; 74174; 74176; 80048; 80053; 80076; 82150; 82550; 82553; 82607; 82746; 82962; 83036; 83540; 83550; 83605; 83735; 83880; 83930; 84100; 84145; 84439; 84443; 84484; 85025; 90935; 93005; 93306; 93970; 99285; J0885; J1200; J1644; J1650; J2250; J2270; J2405; J3010; J3490; J7030; Q9967

== ENCOUNTER 2023-05-12 08:35 | Emergency (ER) | payer OTHER ==
[~2023-05-12] VITALS: Ht 162.6 cm; Wt 56.0 kg
[2023-05-12 08:43] VITALS: O2SAT 98
[2023-05-12 09:10] LABS: MEAN CORPUSCULAR HGB CONC 31.6 g/dL (31.0-37.0); MEAN CORPUSCULAR VOLUME 85.4 fL (81.0-99.0); MEAN PLATELET VOLUME 8.3 fl (7.4-10.4); PLATELET 217 x1000/uL (130-400); RED BLOOD CELL COUNT 2.19 mill/uL (4.2-5.4); RED CELL DISTRIBUTION WIDTH 23.1 % (11.6-14.6)
[2023-05-12 09:14] LABS: CHLORIDE 94 mEq/L (98-107); INDEX HEMOLYSI 1 (1-3); INDEX ICTERIC 1 (1-4); INDEX LIPEMIC 1 (1-3); POTASSIUM 3.9 mEq/L (3.5-5.1); SODIUM 134 mEq/L (136-145)
[2023-05-12 09:16] LABS: DIFFERENTIAL COMMENT 1
[2023-05-12 09:26] LABS: HEMOGLOBIN. 5.9 g/dL (12.0-16.0)
[2023-05-12 09:27] LABS: HEMATOCRIT. 18.7 % (36.0-48.0)
[2023-05-12 09:39] LABS: ALANINE AMINOTRANSFERASE 6 IU/L (13-61); ALBUMIN 3.1 g/dL (3.4-5.0); ASPARTATE AMINOTRANSFERASE 10 IU/L (15-37); BILIRUBIN TOTAL 0.3 mg/dL (0.1-1.0); CARBON DIOXIDE 31 mEq/L (21-32); CREATININE 4.3 mg/dL (0.6-1.3); GLUCOSE 149 mg/dL (70-105); NT PRO B-TYPE NATRIURETIC PEP 57779 pg/mL (5-125); PROTEIN TOTAL 6.2 g/dL (6.0-8.3); TROPONIN I HIGH SENSITIVITY 21 ng/L (<54); UREA NITROGEN BLOOD 32 mg/dL (7-21)
[2023-05-12 10:46] LABS: HYPOCHROMASIA 1+
[2023-05-12 10:47] LABS: ANISOCYTOSIS 2+; PLATELET ESTIMATE NORMAL
[2023-05-12 14:55] LABS: TROPONIN I HIGH SENSITIVITY 25 ng/L (<54)
[2023-05-12 17:10] VITALS: BP 134/56; PULSE 65; RESP 16; TEMP 98.4
== END 2023-05-12 17:12 | disposition short-term general hospital (02) ==
LOC: ER 08:49
DX: I12.0 Hypertensive chronic kidney disease with stage 5 chronic kidney disease or end stage renal disease (principal); E11.22 Type 2 diabetes mellitus with diabetic chronic kidney disease; N18.6 End stage renal disease; D64.9 Anemia, unspecified; Z79.899 Other long term (current) drug therapy; E78.00 Pure hypercholesterolemia, unspecified; Z88.5 Allergy status to narcotic agent; Z88.6 Allergy status to analgesic agent; Z88.9 Allergy status to unspecified drugs, medicaments and biological substances; Z86.59 Personal history of other mental and behavioral disorders
CPT/HCPCS: 99291; 87426; 80053; 83880; 85025; 86850; 86900; 86901; 86920; 84484; 36415; 71045; 93005; C9803; P9016

== ENCOUNTER 2023-09-20 02:11 | Emergency (ER) | payer MEDICARE, OTHER ==
[~2023-09-20] VITALS: Ht 157.5 cm; Wt 55.0 kg
[~2023-09-20 02:11] MED LIST changes: -CRES10 MT; -GLIP5TAB12; +GLIP5TAB22; -LISI10TA26 MT; -METO25TA6 PO
[2023-09-20 02:13] VITALS: O2SAT 99
[2023-09-20 02:51] LABS: POTASSIUM 4.5 mEq/L (3.5-5.1)
[2023-09-20 02:59] LABS: HEMATOCRIT. 40.4 % (36.0-48.0); HEMOGLOBIN. 12.2 g/dL (12.0-16.0); MEAN CORPUSCULAR HEMOGLOBIN 23.9 pg (28.0-32.0); MEAN CORPUSCULAR HGB CONC 30.2 g/dL (31.0-37.0); MEAN CORPUSCULAR VOLUME 79.3 fL (81.0-99.0); MEAN PLATELET VOLUME 8.7 fl (7.4-10.4); PLATELET 326 x1000/uL (130-400); RED CELL DISTRIBUTION WIDTH 21.8 % (11.6-14.6); WHITE BLOOD COUNT 4.8 x1000/uL (4.5-11.0)
[2023-09-20] MEDS ORDERED: HYDRALAZINE 20MG/ML VIAL IV ONE (03:00)
[2023-09-20 03:11] LABS: DIFFERENTIAL COMMENT 1
[2023-09-20 03:48] LABS: CREATININE 6.6 mg/dL (0.6-1.0)
[2023-09-20] MEDS ORDERED: DEXTROSE 50% WATER 50ML SYRINGE IV ONE (04:00)
[2023-09-20 04:20] LABS: ANISOCYTOSIS 2+; HYPOCHROMASIA 1+; MICROCYTOSIS 1+; PLATELET ESTIMATE NORMAL
[2023-09-20] MEDS ORDERED: LABETALOL 5MG/ML SYR 20 MG/4 ML SYRINGE IV ONE (04:30)
[2023-09-20 05:41] LABS: TROPONIN I HIGH SENSITIVITY 30 ng/L (3.0-34)
[2023-09-20 08:30] VITALS: BP 207/82; PULSE 66; RESP 16; TEMP 97.8
[2023-09-20] MEDS ORDERED: HYDRALAZINE HCL 25MG TABLET PO ONE (08:45)
[2023-09-20] MEDS ORDERED: DEXT 5% WATER 100 ML IV ONE (09:15)
== END 2023-09-20 09:07 | disposition short-term general hospital (02) ==
LOC: ER 02:11
DX: E16.2 Hypoglycemia, unspecified (principal); I16.0 Hypertensive urgency; E11.9 Type 2 diabetes mellitus without complications; K21.9 Gastro-esophageal reflux disease without esophagitis; E78.00 Pure hypercholesterolemia, unspecified; I12.0 Hypertensive chronic kidney disease with stage 5 chronic kidney disease or end stage renal disease; N18.6 End stage renal disease; I25.2 Old myocardial infarction; F03.90 Unspecified dementia, unspecified severity, without behavioral disturbance, psychotic disturbance, mood disturbance, and anxiety; Z98.890 Other specified postprocedural states; Z88.5 Allergy status to narcotic agent; Z88.8 Allergy status to other drugs, medicaments and biological substances
CPT/HCPCS: 99291; 96374; 70450; 96375; 80048; 83605; 85025; 84484; 36415; 71045; 93005; 82962; J0360; J3490; J7060

== ENCOUNTER 2023-10-18 23:21 | Emergency (ER) | payer OTHER ==
[~2023-10-18] VITALS: Ht 157.5 cm; Wt 55.0 kg
[2023-10-18 23:28] VITALS: O2SAT 98
[2023-10-19] VITALS: TEMP 98.6
[2023-10-19] MEDS: ONDANSETRON HCL 4MG/2ML INJ IV ONE
[2023-10-19] MEDS: ACETAMINOPHEN 325MG TABLET PO ONE
[2023-10-19 00:24] LABS: HEMATOCRIT. 32.5 % (36.0-48.0); MEAN CORPUSCULAR HEMOGLOBIN 24.3 pg (28.0-32.0); MEAN CORPUSCULAR HGB CONC 30.8 g/dL (31.0-37.0); MEAN PLATELET VOLUME 7.9 fl (7.4-10.4); PLATELET 337 x1000/uL (130-400); RED BLOOD CELL COUNT 4.11 mill/uL (4.2-5.4); RED CELL DISTRIBUTION WIDTH 24.6 % (11.6-14.6); WHITE BLOOD COUNT 5.5 x1000/uL (4.5-11.0)
[2023-10-19 00:26] LABS: DIFFERENTIAL COMMENT 1
[2023-10-19 00:34] LABS: ALANINE AMINOTRANSFERASE 9 IU/L (10-49); ASPARTATE AMINOTRANSFERASE 14 IU/L (<34); BILIRUBIN TOTAL < 0.2 mg/dL (0.1-1.0); CALCIUM 9.7 mg/dL (8.7-10.4); CARBON DIOXIDE 31 mEq/L (21-32); CHLORIDE 97 mEq/L (98-107); GLUCOSE 140 mg/dL (70-105); PROTEIN TOTAL 7.3 g/dL (6.0-8.3); SODIUM 139 mEq/L (136-145); TROPONIN I HIGH SENSITIVITY 32 ng/L (3.0-34); UREA NITROGEN BLOOD 29 mg/dL (9-23)
[2023-10-19 00:41] LABS: ETHANOL BLOOD < 10 mg/dL (<10)
[2023-10-19 02:27] LABS: PLATELET ESTIMATE NORMAL
[2023-10-19 02:28] LABS: HYPOCHROMASIA 1+; MICROCYTOSIS 1+
[2023-10-19 02:38] VITALS: BP 122/55; PULSE 61; RESP 20
[2023-10-22] MEDS ORDERED: MIRT-89 PO (12:22)
[2023-10-22] MEDS ORDERED: ROSU20TA2 PO (12:22)
[2023-10-22] MEDS ORDERED: METO25TA6 PO (12:22)
[2023-10-22] MEDS ORDERED: HYDR-4135 PO (12:22)
[2023-10-22] MEDS ORDERED: LEVE500T19 PO (12:22)
[2023-10-22] MEDS ORDERED: FLUO20CA39 PO (12:22)
[2023-10-22] MEDS ORDERED: SEVE800T25 PO (12:22)
[2023-10-22] MEDS ORDERED: NITR0.4T49 SL (12:22)
[2023-10-22] MEDS ORDERED: DICY-18 PO (12:22)
[2023-10-22] MEDS ORDERED: SUCR1TAB PO (12:22)
[2023-10-22] MEDS ORDERED: ISOS30TA91 PO (12:22)
== END 2023-10-19 03:08 | disposition home or self-care (01) ==
LOC: ER 23:21
DX: I10 Essential (primary) hypertension (principal); I12.0 Hypertensive chronic kidney disease with stage 5 chronic kidney disease or end stage renal disease; E11.22 Type 2 diabetes mellitus with diabetic chronic kidney disease; N18.6 End stage renal disease; K21.9 Gastro-esophageal reflux disease without esophagitis; E78.00 Pure hypercholesterolemia, unspecified; I25.2 Old myocardial infarction; F03.90 Unspecified dementia, unspecified severity, without behavioral disturbance, psychotic disturbance, mood disturbance, and anxiety; Z79.899 Other long term (current) drug therapy; Z99.2 Dependence on renal dialysis
CPT/HCPCS: 36415; 71045; 93005; 99285; 80053; 80320; 83880; 83690; 85025; 84484; 70450; J2405; G0480

== ENCOUNTER 2023-11-22 22:34 | Emergency (ER) | payer OTHER ==
[~2023-11-22] VITALS: Ht 157.5 cm; Wt 52.0 kg
[~2023-11-22 22:34] MED LIST changes: -AMLO10TA80 PO; +CARV12.545 PO; -CLON0.1T MT; -CLOP75TA33 PO; +DICY-18 PO; -FLUO10CA28 PO; +FLUO20CA39 PO; -FOLI0.8T7 MT; +FURO20TA4 PO; -GLIP5TAB22; -HYDR-4005 PO; -HYDR-4134 PO; +HYDR50TA39 PO; -INSU3INS8; +ISOS30TA91 PO; -ISOS60TA76 MT; -KEPP500 PO; +LEVE500T19 PO; -LIDO700A30 TOP; +LISI20TA31 PO; -LISI40TA13 MT; -LORA10TA7 MT; -MELA5TAB19 PO; -METO-539 MT; +METO25TA6 PO; -MINO2.5T2 PO; +MIRT-89 PO; +NIFE-32 PO; -NIFE-33 PO; +NITR0.4T49 SL; -PRIL10; -ROSU20TA2 MT; +ROSU20TA2 PO; +SEVE800T25 PO; -SEVE800T8 MT; +SUCR1TAB PO; +VILA10TA2 PO
[2023-11-22 22:45] VITALS: O2SAT 97
[2023-11-22] MEDS: CEFTRIAXONE 1GM/50ML 50 ML IV ONE (23:00)
[2023-11-22 23:25] LABS: BASOPHILS % 0.5 % (0.0-2.0); EOSINOPHILS % 4.4 % (0.0-5.0); HEMATOCRIT. 34.3 % (36.0-48.0); HEMOGLOBIN. 10.9 g/dL (12.0-16.0); LYMPHOCYTES % 8.5 % (20.0-50.0); MEAN CORPUSCULAR HEMOGLOBIN 26.2 pg (28.0-32.0); MEAN CORPUSCULAR HGB CONC 31.8 g/dL (31.0-37.0); MEAN CORPUSCULAR VOLUME 82.5 fL (81.0-99.0); MEAN PLATELET VOLUME 8.5 fl (7.4-10.4); MONOCYTES % 7.8 % (2.0-8.0); NEUTROPHILS % 78.8 % (40.0-76.0); PLATELET 243 x1000/uL (130-400); RED BLOOD CELL COUNT 4.16 mill/uL (4.2-5.4); RED CELL DISTRIBUTION WIDTH 21.6 % (11.6-14.6)
[2023-11-22 23:32] LABS: ALANINE AMINOTRANSFERASE 44 IU/L (10-49); ALBUMIN 4.3 g/dL (3.2-4.8); ASPARTATE AMINOTRANSFERASE 35 IU/L (<34); BILIRUBIN TOTAL 0.2 mg/dL (0.1-1.0); CALCIUM 9.9 mg/dL (8.7-10.4); CARBON DIOXIDE 27 mEq/L (21-32); CHLORIDE 101 mEq/L (98-107); CREATININE 3.6 mg/dL (0.6-1.0); GLUCOSE 170 mg/dL (70-105); POTASSIUM 3.8 mEq/L (3.5-5.1); PROTEIN TOTAL 7.6 g/dL (6.0-8.3); SODIUM 138 mEq/L (136-145); UREA NITROGEN BLOOD 61 mg/dL (9-23)
[2023-11-22 23:44] LABS: TROPONIN I HIGH SENSITIVITY 83 ng/L (3.0-34)
[2023-11-23 00:25] LABS: INR 1.1; PROTHROMBIN TIME 11.9 sec (9.6-11.0)
[2023-11-23 01:47] LABS: TROPONIN I HIGH SENSITIVITY 63 ng/L (3.0-34)
[2023-11-23] MEDS ORDERED: ENOXAPARIN 60MG/0.6ML SYR SUBCUT NR (03:15)
[2023-11-23] MEDS: ASPIRIN 325MG EC TABLET PO NR (03:34)
[2023-11-23] MEDS: DEXTROSE 50% WATER 50ML SYRINGE IV NR (03:34)
[2023-11-23] MEDS: CEFTRIAXONE 1GM/50ML 50 ML IV NR (03:45)
[2023-11-23] MEDS ORDERED: DEXT 10% WATER 1,000 ML IV STA (04:53)
[2023-11-23 05:00] LABS: TROPONIN I HIGH SENSITIVITY 70 ng/L (3.0-34)
[2023-11-23] MEDS: ACETAMINOPHEN 325MG TABLET PO NR (05:30)
[2023-11-23] MEDS: DEXT 10% WATER 1,000 ML IV STA (05:45)
[2023-11-23 08:55] VITALS: BP 128/75; PULSE 65; RESP 15; TEMP 98.3
== END 2023-11-23 09:00 | disposition short-term general hospital (02) ==
LOC: ER 22:34 → EDBEDREQ 23:08 → ER 11-23 09:00
DX: E11.649 Type 2 diabetes mellitus with hypoglycemia without coma (principal); I12.0 Hypertensive chronic kidney disease with stage 5 chronic kidney disease or end stage renal disease; E11.22 Type 2 diabetes mellitus with diabetic chronic kidney disease; R79.89 Other specified abnormal findings of blood chemistry; N18.6 End stage renal disease; R41.82 Altered mental status, unspecified; Z99.2 Dependence on renal dialysis; Z79.899 Other long term (current) drug therapy
CPT/HCPCS: 99285; 96365; 71045; 80053; 82962 ×2; 83605; 83690; 85025; 85610; 87040; 84484 ×2; 36415 ×2; 84145; 93005; 70450; 96375; J0696

== ENCOUNTER 2024-02-29 02:10 | Emergency (ER) | payer MEDICARE, OTHER ==
[~2024-02-29] VITALS: Ht 167.6 cm; Wt 60.0 kg
[~2024-02-29 02:10] MED LIST changes: -ASPI-1497 PO; -CARV12.545 PO; -CINA30TA5 PO; -DICY-18 PO; -FLUO20CA39 PO; -FURO20TA4 PO; -HYDR50TA39 PO; -ISOS30TA91 PO; -LISI20TA31 PO; -METO25TA6 PO; -MIRT-89 PO; -NITR0.4T49 SL; -ROSU20TA2 PO; -SUCR1TAB PO; -VILA10TA2 PO
[2024-02-29] MEDS ORDERED: IPRATROPIUM/ALBUTEROL 0.5-3(2.5)MG/3ML NEB HHN ONE (02:30)
[2024-02-29 03:11] LABS: BASOPHILS % 0.9 % (0.0-2.0); EOSINOPHILS % 2.9 % (0.0-5.0); HEMATOCRIT. 32.6 % (36.0-48.0); HEMOGLOBIN. 10.3 g/dL (12.0-16.0); LYMPHOCYTES % 11.3 % (20.0-50.0); MEAN CORPUSCULAR HEMOGLOBIN 27.7 pg (28.0-32.0); MEAN CORPUSCULAR HGB CONC 31.7 g/dL (31.0-37.0); MEAN CORPUSCULAR VOLUME 87.2 fL (81.0-99.0); NEUTROPHILS % 77.9 % (40.0-76.0); RED BLOOD CELL COUNT 3.73 mill/uL (4.2-5.4); WHITE BLOOD COUNT 10.9 x1000/uL (4.5-11.0)
[2024-02-29 03:13] LABS: DIFFERENTIAL COMMENT 1
[2024-02-29 03:15] LABS: CARBON DIOXIDE 24 mEq/L (21-32); CHLORIDE 97 mEq/L (98-107); SODIUM 137 mEq/L (136-145)
[2024-02-29 03:16] LABS: CALCIUM 9.8 mg/dL (8.7-10.4)
[2024-02-29 03:21] LABS: GLUCOSE 176 mg/dL (70-105); TROPONIN I HIGH SENSITIVITY 20 ng/L (3.0-34); UREA NITROGEN BLOOD 69 mg/dL (9-23)
[2024-02-29 03:22] LABS: ALANINE AMINOTRANSFERASE 12 IU/L (10-49); ALBUMIN 4.1 g/dL (3.2-4.8); ASPARTATE AMINOTRANSFERASE 14 IU/L (<34)
[2024-02-29 03:23] LABS: BILIRUBIN TOTAL 0.2 mg/dL (0.1-1.0); PROTEIN TOTAL 7.4 g/dL (6.0-8.3)
[2024-02-29 03:38] LABS: BILIRUBIN DIRECT < 0.1 mg/dL (<=3.0)
[2024-02-29 03:39] LABS: CREATININE 6.1 mg/dL (0.6-1.0)
[2024-02-29] MEDS: FUROSEMIDE 40MG/4ML VIAL IVP NR (04:22)
[2024-02-29 04:35] VITALS: PULSE 75; RESP 17; O2SAT 100
[2024-02-29] MEDS: IPRATROPIUM/ALBUTEROL 0.5-3(2.5)MG/3ML NEB HHN NR (04:35)
[2024-02-29] MEDS: HYDRALAZINE 20MG/ML VIAL IV NR (04:55)
[2024-02-29 05:53] LABS: BG BASE EXCESS -2.2 mmol/L (-2.0-2.0); BG CARBOXYHEMOGLOBIN 0.2 % (0.5-1.5); BG DEOXYHEMOGLOBIN 2.8 % (0.0-5.0); BG FRACTION INSPIRED OXYGEN 32; BG OXYGEN SATURATION 97.2 % (92.0-98.5); BG PCO2 35.2 mmHg (35.0-45.0); BG PH 7.413 (7.350-7.450); BG PO2 101.1 mmHg (75.0-100.0); BG SAMPLE SITE RIGHT RADIAL; BG TOTAL HEMOGLOBIN 9.7 g/dL (12.0-18.0); BG VENT MODE NASAL CANNULA
[2024-02-29 06:01] LABS: MEAN PLATELET VOLUME 8.6 fl (7.4-10.4); PLATELET 253 x1000/uL (130-400)
[2024-02-29 06:20] VITALS: BP 139/57; PULSE 74; RESP 16; TEMP 98.4
== END 2024-02-29 06:43 | disposition short-term general hospital (02) ==
LOC: EDBD → ER 02:10
DX: R06.02 Shortness of breath (principal); N18.6 End stage renal disease; E11.9 Type 2 diabetes mellitus without complications; D64.9 Anemia, unspecified; Z86.73 Personal history of transient ischemic attack (TIA), and cerebral infarction without residual deficits; Z91.158 Patient's noncompliance with renal dialysis for other reason; Z88.5 Allergy status to narcotic agent; Z88.8 Allergy status to other drugs, medicaments and biological substances; Z99.2 Dependence on renal dialysis
CPT/HCPCS: 99285; 96374; 71045; 96375; 80076; 80048; 82962; 83880; 85025; 84484; 36415; 94640; 82805; 82375; 93005; 36600; J1940; J0360

== ENCOUNTER 2024-03-12 22:47 | Emergency (ER) | payer OTHER ==
[~2024-03-12] VITALS: Ht 167.6 cm; Wt 70.0 kg
[2024-03-12 23:02] VITALS: O2SAT 100
[2024-03-13 01:12] LABS: DIFFERENTIAL COMMENT 1; HEMATOCRIT. 27.3 % (36.0-48.0); HEMOGLOBIN. 8.8 g/dL (12.0-16.0); MEAN CORPUSCULAR HEMOGLOBIN 26.8 pg (28.0-32.0); MEAN CORPUSCULAR VOLUME 83.8 fL (81.0-99.0); MEAN PLATELET VOLUME 8.7 fl (7.4-10.4); PLATELET 194 x1000/uL (130-400); RED BLOOD CELL COUNT 3.26 mill/uL (4.2-5.4); RED CELL DISTRIBUTION WIDTH 19.5 % (11.6-14.6); WHITE BLOOD COUNT 3.7 x1000/uL (4.5-11.0)
[2024-03-13 01:19] LABS: CHLORIDE 100 mEq/L (98-107); POTASSIUM 4.2 mEq/L (3.5-5.1); SODIUM 138 mEq/L (136-145)
[2024-03-13 01:20] LABS: CALCIUM 9.1 mg/dL (8.7-10.4); CARBON DIOXIDE 31 mEq/L (21-32)
[2024-03-13 01:23] LABS: INR 1.1; PARTIAL THROMBOPLASTIN TIME 31.3 sec (23.4-31.0); PROTHROMBIN TIME 12.4 sec (9.6-11.0)
[2024-03-13 01:25] LABS: CREATININE 4.4 mg/dL (0.6-1.0); GLUCOSE 103 mg/dL (70-105); UREA NITROGEN BLOOD 31 mg/dL (9-23)
[2024-03-13 01:27] LABS: PHOSPHORUS 5.1 mg/dL (2.5-4.9)
[2024-03-13 01:30] LABS: T4 FREE 0.81 ng/dL (0.89-1.76)
[2024-03-13 01:31] LABS: TROPONIN I HIGH SENSITIVITY 51 ng/L (3.0-34)
[2024-03-13 01:48] LABS: ATYPICAL LYMPHOCYTES 1; PLATELET ESTIMATE NORMAL
[2024-03-13 01:49] LABS: HYPOCHROMASIA 1+; OVALOCYTES 2+; TEAR DROP CELLS 1+
[2024-03-13] MEDS: LEVETIRACETAM 500MG PREMIX 100 ML IV ONE (03:11)
[2024-03-13] MEDS: ACETAMINOPHEN 325MG TABLET PO ONE (03:50)
[2024-03-13 06:05] VITALS: BP 196/60; PULSE 80; RESP 20; TEMP 98.3
[2024-03-13] MEDS: LABETALOL 5MG/ML 4ML INJ IV ONE (06:05)
== END 2024-03-13 06:35 | disposition short-term general hospital (02) ==
LOC: EDBD → ER 22:59
DX: G40.909 Epilepsy, unspecified, not intractable, without status epilepticus (principal); I16.0 Hypertensive urgency; D64.9 Anemia, unspecified; E11.9 Type 2 diabetes mellitus without complications; I10 Essential (primary) hypertension; Z86.73 Personal history of transient ischemic attack (TIA), and cerebral infarction without residual deficits
CPT/HCPCS: 99285; 96365; 70450; 71045; 96375; 80048; 83880; 84439; 83605; 83735; 84100; 84443; 85025; 85610; 85730; 87040; 84484; 36415; 84145; J1953; J3490

== ENCOUNTER 2024-03-16 22:57 | Inpatient (IN) | payer OTHER ==
[~2024-03-16] VITALS: Ht 147.3 cm; Wt 56.7 kg
[2024-03-16 23:34] LABS: HEMATOCRIT. 25.2 % (36.0-48.0); HEMOGLOBIN. 8.1 g/dL (12.0-16.0); MEAN CORPUSCULAR HEMOGLOBIN 26.8 pg (28.0-32.0); MEAN CORPUSCULAR HGB CONC 32.2 g/dL (31.0-37.0); MEAN CORPUSCULAR VOLUME 83.3 fL (81.0-99.0); PLATELET 191 x1000/uL (130-400); RED BLOOD CELL COUNT 3.02 mill/uL (4.2-5.4); RED CELL DISTRIBUTION WIDTH 19.3 % (11.6-14.6); WHITE BLOOD COUNT 4.1 x1000/uL (4.5-11.0)
[2024-03-16 23:35] LABS: DIFFERENTIAL COMMENT 1
[2024-03-16 23:44] LABS: CHLORIDE 99 mEq/L (98-107); POTASSIUM 3.9 mEq/L (3.5-5.1); SODIUM 137 mEq/L (136-145)
[2024-03-16 23:45] LABS: CALCIUM 8.7 mg/dL (8.7-10.4); CARBON DIOXIDE 31 mEq/L (21-32)
[2024-03-16 23:50] LABS: CREATININE 3.2 mg/dL (0.6-1.0); GLUCOSE 99 mg/dL (70-105); TROPONIN I HIGH SENSITIVITY 18 ng/L (3.0-34); UREA NITROGEN BLOOD 21 mg/dL (9-23)
[2024-03-17 00:04] LABS: ETHANOL BLOOD < 10 mg/dL (<10)
[2024-03-17 00:25] LABS: ATYPICAL LYMPHOCYTES 1; GIANT PLATELETS FEW; PLATELET ESTIMATE NORMAL
[2024-03-17 00:26] LABS: HYPOCHROMASIA 1+; OVALOCYTES 3+
[2024-03-17] MEDS: HYDRALAZINE 20MG/ML VIAL IV ONE (01:37)
[2024-03-17] MEDS: FUROSEMIDE 40MG/4ML VIAL IVP NR (01:38)
[2024-03-17] MEDS: MORPHINE SULFATE 2 MG/ML INJ (NOT FOR IM USE) IV ONE (01:38)
[2024-03-17 01:59] LABS: TROPONIN I HIGH SENSITIVITY 19 ng/L (3.0-34)
[2024-03-17 03:30] LABS: *AMPHETAMINES SCREEN URINE NEGATIVE (NEGATIVE); *BARBITURATES SCREEN URINE NEGATIVE (NEGATIVE); *BENZODIAZEPINES SCREEN URINE NEGATIVE (NEGATIVE)
[2024-03-17 03:31] LABS: *COCAINE SCREEN URINE NEGATIVE (NEGATIVE); CANNABINOID URINE SCREEN NEGATIVE (NEGATIVE); ECSTASY MDMA SCREEN URINE NEGATIVE (NEGATIVE); METHADONE URINE SCREEN NEGATIVE (NEGATIVE); OPIATES URINE SCREEN NEGATIVE (NEGATIVE); PHENCYCLIDINE URINE SCREEN NEGATIVE (NEGATIVE)
[2024-03-17] MEDS ORDERED: MAGNESIUM/ALUMINUM HYDROXIDE/SIMETHICONE 30ML UDC PO PRN (06:15)
[2024-03-17] MEDS ORDERED: ONDANSETRON HCL 4MG/2ML INJ IV PRN (06:15)
[2024-03-17] MEDS ORDERED: IPRATROPIUM/ALBUTEROL 0.5-3(2.5)MG/3ML NEB NEB PRN (06:15)
[2024-03-17] MEDS ORDERED: GUAIFENESIN 200MG/10ML SUGAR FREE UDC PO PRN (06:15)
[2024-03-17] MEDS ORDERED: ACETAMINOPHEN 325MG TABLET PO PRN ×2 (06:15)
[2024-03-17] MEDS ORDERED: DOCUSATE SODIUM 100MG CAPSULE PO PRN (06:15)
[2024-03-17] MEDS ORDERED: NITROGLYCERIN 0.4MG TABLET SL SL PRN (06:15)
[2024-03-17] MEDS ORDERED: ZOLPIDEM TARTRATE 5MG TABLET PO PRN (06:15)
[2024-03-17] MEDS: SEVELAMER CARBONATE 800 MG TABLET PO SCH (09:05)
[2024-03-17] MEDS: FAMOTIDINE 20MG TABLET PO SCH (09:06)
[2024-03-17] MEDS: ENOXAPARIN 30MG/0.3ML SYR SUBCUT SCH (09:06)
[2024-03-17] MEDS: NIFEDIPINE XL 60MG TAB PO SCH (09:07)
[2024-03-17 09:48] LABS: IRON 53 ug/dL (50-170)
[2024-03-17 09:49] LABS: LDL CHOLESTEROL 46 mg/dL (5-100); TRIGLYCERIDE 62 mg/dL (0-150)
[2024-03-17 09:50] LABS: CHOLESTEROL 124 mg/dL (<200); HDL CHOLESTEROL 62 mg/dL (>65)
[2024-03-17 09:51] LABS: TOTAL IRON BINDING CAPACITY 96 ug/dl (250-425)
[2024-03-17 09:53] LABS: T4 FREE 0.89 ng/dL (0.89-1.76); THYROID STIMULATING HORMONE 0.63 uIU/mL (0.55-4.78)
[2024-03-17 09:57] LABS: FOLIC ACID (FOLATE) SERUM 19.77 ng/mL (>5.38); VITAMIN B12 SERUM 1094 pg/mL (211-911)
[2024-03-17 16:17] LABS: HEMATOCRIT. 29.6 % (36.0-48.0); HEMOGLOBIN. 9.5 g/dL (12.0-16.0); MEAN CORPUSCULAR HEMOGLOBIN 26.9 pg (28.0-32.0); MEAN CORPUSCULAR HGB CONC 31.9 g/dL (31.0-37.0); MEAN CORPUSCULAR VOLUME 84.4 fL (81.0-99.0); MEAN PLATELET VOLUME 9.4 fl (7.4-10.4); PLATELET 200 x1000/uL (130-400); RED BLOOD CELL COUNT 3.51 mill/uL (4.2-5.4); RED CELL DISTRIBUTION WIDTH 19.3 % (11.6-14.6); WHITE BLOOD COUNT 4.1 x1000/uL (4.5-11.0)
[2024-03-17 16:19] LABS: DIFFERENTIAL COMMENT 1
[2024-03-17 16:38] LABS: CREATINE KINASE MB FRACTION 1.1 ng/mL (0.5-3.6); TROPONIN I HIGH SENSITIVITY 23 ng/L (3.0-34)
[2024-03-17 16:40] LABS: CREATINE KINASE 26 IU/L (34-145)
[2024-03-17 16:52] LABS: ANISOCYTOSIS 1+; PLATELET ESTIMATE NORMAL
[2024-03-17 17:30] LABS: CHLORIDE 100 mEq/L (98-107); POTASSIUM 4.5 mEq/L (3.5-5.1); SODIUM 136 mEq/L (136-145)
[2024-03-17 17:31] LABS: CALCIUM 8.9 mg/dL (8.7-10.4); CARBON DIOXIDE 28 mEq/L (21-32)
[2024-03-17 17:36] LABS: CREATININE 4.1 mg/dL (0.6-1.0); GLUCOSE 84 mg/dL (70-105); UREA NITROGEN BLOOD 35 mg/dL (9-23)
[2024-03-17 17:38] LABS: ALANINE AMINOTRANSFERASE 9 IU/L (10-49); ALBUMIN 3.7 g/dL (3.2-4.8); ASPARTATE AMINOTRANSFERASE 11 IU/L (<34); BILIRUBIN TOTAL < 0.2 mg/dL (0.1-1.0)
[2024-03-17 17:39] LABS: PROTEIN TOTAL 6.1 g/dL (6.0-8.3)
[2024-03-17] MEDS: AZITHROMYCIN 500MG/250ML 250 ML IV SCH (18:02)
[2024-03-17] MEDS: FUROSEMIDE 100MG/10ML VIAL IVP NR (18:37)
[2024-03-17 20:00] VITALS: BP 171/74; PULSE 69; RESP 18; TEMP 98.3
[2024-03-17 20:29] LABS: HEPATITIS B SURFACE ANTIGEN NEGATIVE (Negative)
[2024-03-17 20:49] LABS: HEPATITIS A AB IGM NEGATIVE (Negative)
[2024-03-17 20:50] LABS: HEPATITIS B CORE AB IGM NEGATIVE (Negative)
[2024-03-17 20:51] LABS: HEPATITIS C AB NON REACTIVE (Neg) (Negative)
[2024-03-17] MEDS: CLONIDINE 0.1MG TABLET PO PRN (21:00)
[2024-03-17 22:00] VITALS: BP 145/95
[2024-03-17] MEDS: EPOETIN ALFA 4000UNITS/ML VIAL SUBCUT SCH (22:03)
[2024-03-17] MEDS: CEFTRIAXONE 1GM/50ML 50 ML IV SCH (22:03)
[2024-03-17 22:53] VITALS: BP 140/60; PULSE 71; RESP 18; TEMP 97.7
[2024-03-17 23:10] VITALS: BP 140/60; PULSE 71; RESP 18; TEMP 97.7
[2024-03-18] VITALS (12 sets, daily range): BP systolic 123–172; BP diastolic 42–69; PULSE 53–69; RESP 18–20; TEMP 97.6–98.4; O2SAT 98
[2024-03-18 01:48] LABS: CREATINE KINASE MB FRACTION 1.2 ng/mL (0.5-3.6)
[2024-03-18 07:23] LABS: HEMATOCRIT. 27.6 % (36.0-48.0); HEMOGLOBIN. 8.7 g/dL (12.0-16.0); MEAN CORPUSCULAR HEMOGLOBIN 26.4 pg (28.0-32.0); MEAN CORPUSCULAR HGB CONC 31.5 g/dL (31.0-37.0); MEAN PLATELET VOLUME 9.3 fl (7.4-10.4); PLATELET 194 x1000/uL (130-400); RED BLOOD CELL COUNT 3.28 mill/uL (4.2-5.4); RED CELL DISTRIBUTION WIDTH 18.8 % (11.6-14.6); WHITE BLOOD COUNT 3.7 x1000/uL (4.5-11.0)
[2024-03-18 07:24] LABS: DIFFERENTIAL COMMENT 1
[2024-03-18 07:31] LABS: CHLORIDE 98 mEq/L (98-107); POTASSIUM 4.4 mEq/L (3.5-5.1); SODIUM 136 mEq/L (136-145)
[2024-03-18 07:32] LABS: CALCIUM 9.1 mg/dL (8.7-10.4); CARBON DIOXIDE 26 mEq/L (21-32)
[2024-03-18 07:37] LABS: GLUCOSE 72 mg/dL (70-105); UREA NITROGEN BLOOD 35 mg/dL (9-23)
[2024-03-18 07:39] LABS: ALANINE AMINOTRANSFERASE < 7 IU/L (10-49); ALBUMIN 3.4 g/dL (3.2-4.8); ASPARTATE AMINOTRANSFERASE 8 IU/L (<34)
[2024-03-18 07:40] LABS: BILIRUBIN TOTAL < 0.2 mg/dL (0.1-1.0); PHOSPHORUS 5.9 mg/dL (2.5-4.9); PROTEIN TOTAL 5.7 g/dL (6.0-8.3)
[2024-03-18 08:47] LABS: BILIRUBIN DIRECT < 0.1 mg/dL (<=3.0)
[2024-03-18 08:48] LABS: CREATININE 5.4 mg/dL (0.6-1.0)
[2024-03-18 19:33] LABS: PLATELET ESTIMATE NORMAL
[2024-03-18 19:34] LABS: ANISOCYTOSIS 1+
== END 2024-03-18 21:55 | disposition short-term general hospital (02) | DRG 205 ==
LOC: ER 22:57 → EDBD 22:57 → 5WST 03-17 03:18 → EDBEDREQ 03-17 03:43 → EDBEDREQTM 03-17 04:25 → 8WST 03-17 22:35
PROVIDERS: ADMIT Internal Medicine; ATTEND Internal Medicine
PROC: 5A1D70Z Performance of Urinary Filtration, Intermittent, Less than 6 Hours Per Day (ICD-10-PCS; principal; 2024-03-18)
DX: M94.0 Chondrocostal junction syndrome [Tietze] (principal); J18.9 Pneumonia, unspecified organism; J96.00 Acute respiratory failure, unspecified whether with hypoxia or hypercapnia; N18.6 End stage renal disease; E87.1 Hypo-osmolality and hyponatremia; I13.2 Hypertensive heart and chronic kidney disease with heart failure and with stage 5 chronic kidney disease, or end stage renal disease; J44.0 Chronic obstructive pulmonary disease with (acute) lower respiratory infection; N25.81 Secondary hyperparathyroidism of renal origin; D63.8 Anemia in other chronic diseases classified elsewhere; E11.22 Type 2 diabetes mellitus with diabetic chronic kidney disease; I25.119 Atherosclerotic heart disease of native coronary artery with unspecified angina pectoris; E78.5 Hyperlipidemia, unspecified; F03.90 Unspecified dementia, unspecified severity, without behavioral disturbance, psychotic disturbance, mood disturbance, and anxiety; G40.909 Epilepsy, unspecified, not intractable, without status epilepticus; I1A.0 Resistant hypertension; I50.9 Heart failure, unspecified; Z86.73 Personal history of transient ischemic attack (TIA), and cerebral infarction without residual deficits; Z99.2 Dependence on renal dialysis; Z88.8 Allergy status to other drugs, medicaments and biological substances; Z79.899 Other long term (current) drug therapy; Z82.49 Family history of ischemic heart disease and other diseases of the circulatory system
CPT/HCPCS: 36415; 71045; 80048; 80053; 80061; 80076; 80305; 80320; 82550; 82553; 82607; 82746; 83036; 83540; 83550; 83605; 83735; 83880; 84100; 84145; 84439; 84443; 84484; 85025; 85379; 86705; 86709; 87340; 90935; 93005; 93306; 93970; 99285; C1893; J0360; J0456; J0696; J0885; J1650; J1940; J2270; G0480

== ENCOUNTER 2024-07-31 00:42 | Emergency (ER) | payer MEDICARE, OTHER ==
[~2024-07-31] VITALS: Ht 157.5 cm; Wt 53.0 kg
[2024-07-31 02:20] LABS: INR 1.2; PARTIAL THROMBOPLASTIN TIME 30.3 sec (23.4-31.0); PROTHROMBIN TIME 12.9 sec (9.6-11.0)
[2024-07-31 02:32] LABS: CARBON DIOXIDE 28 mEq/L (21-32); CHLORIDE 103 mEq/L (98-107); POTASSIUM 3.4 mEq/L (3.5-5.1); SODIUM 141 mEq/L (136-145)
[2024-07-31 02:33] LABS: CALCIUM 9.6 mg/dL (8.7-10.4)
[2024-07-31 02:38] LABS: GLUCOSE 89 mg/dL (70-105); UREA NITROGEN BLOOD 17 mg/dL (9-23)
[2024-07-31 02:39] LABS: TROPONIN I HIGH SENSITIVITY 22 ng/L (3.0-34)
[2024-07-31 03:32] VITALS: TEMP 36.83628
[2024-07-31 03:33] LABS: BASOPHILS % 0.5 % (0.0-2.0); EOSINOPHILS % 3.2 % (0.0-5.0); HEMATOCRIT. 26.1 % (36.0-48.0); HEMOGLOBIN. 8.1 g/dL (12.0-16.0); MEAN CORPUSCULAR HEMOGLOBIN 25.2 pg (28.0-32.0); MEAN CORPUSCULAR HGB CONC 31.1 g/dL (31.0-37.0); MEAN CORPUSCULAR VOLUME 81.1 fL (81.0-99.0); MEAN PLATELET VOLUME 9.4 fl (7.4-10.4); MONOCYTES % 13.8 % (2.0-8.0); NEUTROPHILS % 67.5 % (40.0-76.0); PLATELET 180 x1000/uL (130-400); RED BLOOD CELL COUNT 3.21 mill/uL (4.2-5.4); RED CELL DISTRIBUTION WIDTH 21.7 % (11.6-14.6); WHITE BLOOD COUNT 4.6 x1000/uL (4.5-11.0)
[2024-07-31 03:37] LABS: ETHANOL BLOOD < 10 mg/dL (<10)
[2024-07-31 03:38] LABS: CREATININE 5.1 mg/dL (0.6-1.0)
[2024-07-31 03:51] VITALS: PULSE 71; RESP 18; O2SAT 100
[2024-07-31] MEDS: IPRATROPIUM BROMIDE (0.02%) 0.5MG/2.5ML NEB HHN STA (03:51)
[2024-07-31] MEDS: ALBUTEROL (0.083%) 2.5MG/3ML NEB HHN STA (03:51)
[2024-07-31] MEDS: ALBUTEROL (0.083%) 2.5MG/3ML NEB ONE (04:01)
[2024-07-31] MEDS: IPRATROPIUM BROMIDE (0.02%) 0.5MG/2.5ML NEB ONE (04:01)
[2024-07-31] MEDS: HYDRALAZINE 20MG/ML VIAL IV ONE (05:11)
[2024-07-31] MEDS: CARVEDILOL 12.5MG TABLET PO ONE (06:56)
[2024-07-31] MEDS: LISINOPRIL 40MG TABLET PO ONE (06:57)
[2024-07-31 06:59] VITALS: BP 155/53; O2SAT 100
[2024-07-31 07:35] VITALS: PULSE 99; RESP 18; O2SAT 100
[2024-07-31] MEDS: IPRATROPIUM/ALBUTEROL 0.5-3(2.5)MG/3ML NEB HHN ONE (07:35)
== END 2024-07-31 08:00 | disposition short-term general hospital (02) ==
LOC: ER 00:42 → EDBEDREQ 05:53 → EDBEDREQTM 05:53 → ER 08:00
DX: N18.6 End stage renal disease (principal); J44.1 Chronic obstructive pulmonary disease with (acute) exacerbation; D64.9 Anemia, unspecified; I13.2 Hypertensive heart and chronic kidney disease with heart failure and with stage 5 chronic kidney disease, or end stage renal disease; I50.9 Heart failure, unspecified; E11.22 Type 2 diabetes mellitus with diabetic chronic kidney disease; Z79.899 Other long term (current) drug therapy; Z86.73 Personal history of transient ischemic attack (TIA), and cerebral infarction without residual deficits; Z88.5 Allergy status to narcotic agent; Z88.6 Allergy status to analgesic agent; Z20.822 Contact with and (suspected) exposure to COVID-19
CPT/HCPCS: 80048; 80320; 83880; 83690; 85025; 85610; 85730; 87040; 84484; 87804 ×2; 36415; 71045; 94640; 93005; 96374; 99285; 87426; J0360; G0480

== ENCOUNTER 2024-08-26 09:35 | Emergency (ER) | payer OTHER ==
[~2024-08-26] VITALS: Ht 157.5 cm; Wt 52.0 kg
[2024-08-26 09:36] VITALS: O2SAT 100
[2024-08-26] MEDS: ONDANSETRON HCL 4MG/2ML INJ IV STA (10:12)
[2024-08-26 10:26] LABS: BASOPHILS % 0.8 % (0.0-2.0); EOSINOPHILS % 4.1 % (0.0-5.0); HEMATOCRIT. 34.9 % (36.0-48.0); LYMPHOCYTES % 18.2 % (20.0-50.0); MEAN CORPUSCULAR HEMOGLOBIN 26.4 pg (28.0-32.0); MEAN CORPUSCULAR HGB CONC 31.4 g/dL (31.0-37.0); MEAN PLATELET VOLUME 8.7 fl (7.4-10.4); MONOCYTES % 12.1 % (2.0-8.0); NEUTROPHILS % 64.8 % (40.0-76.0); PLATELET 229 x1000/uL (130-400); RED BLOOD CELL COUNT 4.16 mill/uL (4.2-5.4); RED CELL DISTRIBUTION WIDTH 22.9 % (11.6-14.6); WHITE BLOOD COUNT 5.3 x1000/uL (4.5-11.0)
[2024-08-26 10:28] LABS: DIFFERENTIAL COMMENT 1
[2024-08-26 10:29] LABS: ADD RBC MORPHOLOGY YES
[2024-08-26 10:32] LABS: CHLORIDE 99 mEq/L (98-107); POTASSIUM 4.2 mEq/L (3.5-5.1); SODIUM 137 mEq/L (136-145)
[2024-08-26 10:33] LABS: CALCIUM 10.2 mg/dL (8.7-10.4); CARBON DIOXIDE 25 mEq/L (21-32)
[2024-08-26 10:38] LABS: GLUCOSE 89 mg/dL (70-105); INR 1.1; PROTHROMBIN TIME 11.8 sec (9.6-11.0); UREA NITROGEN BLOOD 42 mg/dL (9-23)
[2024-08-26 10:39] LABS: TROPONIN I HIGH SENSITIVITY 19 ng/L (3.0-34)
[2024-08-26 11:06] LABS: CREATININE 5.2 mg/dL (0.6-1.0)
[2024-08-26 12:03] LABS: ANISOCYTOSIS 2+; PLATELET ESTIMATE NORMAL
[2024-08-26 14:55] VITALS: BP 152/60; PULSE 69; RESP 12; TEMP 36.61404; O2SAT 96
== END 2024-08-26 15:00 | disposition short-term general hospital (02) ==
LOC: ER 09:35 → CANBEDREQ 12:13 → ER 15:00
DX: E11.22 Type 2 diabetes mellitus with diabetic chronic kidney disease (principal); I11.0 Hypertensive heart disease with heart failure; I50.9 Heart failure, unspecified; N18.6 End stage renal disease; Z88.6 Allergy status to analgesic agent; Z88.5 Allergy status to narcotic agent; Z98.890 Other specified postprocedural states; Z86.73 Personal history of transient ischemic attack (TIA), and cerebral infarction without residual deficits; Z86.59 Personal history of other mental and behavioral disorders
CPT/HCPCS: 99285; 96374; 71045; 80048; 83880; 85025; 85610; 84484; 36415; 93005; J2405

== ENCOUNTER 2024-10-13 13:04 | Emergency (ER) | payer OTHER ==
[~2024-10-13] VITALS: Ht 167.6 cm; Wt 50.0 kg
[2024-10-13 13:08] VITALS: O2SAT 100
[2024-10-13] MEDS: ACETAMINOPHEN 325MG TABLET PO ONE (13:42)
[2024-10-13 15:50] LABS: HEMATOCRIT. 28.6 % (36.0-48.0); HEMOGLOBIN. 8.7 g/dL (12.0-16.0); MEAN CORPUSCULAR HEMOGLOBIN 25.3 pg (28.0-32.0); MEAN CORPUSCULAR HGB CONC 30.6 g/dL (31.0-37.0); MEAN CORPUSCULAR VOLUME 82.7 fL (81.0-99.0); MEAN PLATELET VOLUME 8.5 fl (7.4-10.4); PLATELET 212 x1000/uL (130-400); RED BLOOD CELL COUNT 3.45 mill/uL (4.2-5.4); RED CELL DISTRIBUTION WIDTH 23.4 % (11.6-14.6); WHITE BLOOD COUNT 3.9 x1000/uL (4.5-11.0)
[2024-10-13 15:52] LABS: POTASSIUM 4.1 mEq/L (3.5-5.1)
[2024-10-13 15:53] LABS: CALCIUM 9.9 mg/dL (8.7-10.4)
[2024-10-13 15:54] LABS: DIFFERENTIAL COMMENT 1
[2024-10-13 15:58] LABS: CREATININE 4.3 mg/dL (0.6-1.0)
[2024-10-13 16:22] VITALS: BP 150/53; PULSE 62; RESP 19; TEMP 36.9; O2SAT 99
[2024-10-13 16:36] LABS: ANISOCYTOSIS 2+; PLATELET ESTIMATE NORMAL
== END 2024-10-13 17:06 | disposition home or self-care (01) ==
LOC: ER 13:04
DX: S00.83XA Contusion of other part of head, initial encounter (principal); I13.2 Hypertensive heart and chronic kidney disease with heart failure and with stage 5 chronic kidney disease, or end stage renal disease; E11.22 Type 2 diabetes mellitus with diabetic chronic kidney disease; I50.9 Heart failure, unspecified; N18.6 End stage renal disease; Z79.899 Other long term (current) drug therapy; Z88.5 Allergy status to narcotic agent; Z99.2 Dependence on renal dialysis; Z86.73 Personal history of transient ischemic attack (TIA), and cerebral infarction without residual deficits; W19.XXXA Unspecified fall, initial encounter; Y93.89 Activity, other specified; Y92.89 Other specified places as the place of occurrence of the external cause; Y99.8 Other external cause status
CPT/HCPCS: 36415; 80048; 85025; 99284

== ENCOUNTER 2024-11-09 14:04 | Emergency (ER) | payer OTHER ==
[~2024-11-09] VITALS: Ht 167.6 cm; Wt 70.0 kg
[2024-11-09 14:07] VITALS: O2SAT 97
[2024-11-09] MEDS: DEXTROSE 50% WATER 50ML SYRINGE IV ONE (14:15)
[2024-11-09 15:06] LABS: BASOPHILS % 1.2 % (0.0-2.0); EOSINOPHILS % 4.1 % (0.0-5.0); HEMATOCRIT. 34.3 % (36.0-48.0); HEMOGLOBIN. 10.6 g/dL (12.0-16.0); LYMPHOCYTES % 11.3 % (20.0-50.0); MEAN CORPUSCULAR HEMOGLOBIN 25.8 pg (28.0-32.0); MEAN CORPUSCULAR HGB CONC 30.9 g/dL (31.0-37.0); MEAN CORPUSCULAR VOLUME 83.2 fL (81.0-99.0); MEAN PLATELET VOLUME 7.9 fl (7.4-10.4); MONOCYTES % 10.9 % (2.0-8.0); NEUTROPHILS % 72.5 % (40.0-76.0); PLATELET 261 x1000/uL (130-400); RED BLOOD CELL COUNT 4.12 mill/uL (4.2-5.4); RED CELL DISTRIBUTION WIDTH 24.4 % (11.6-14.6); WHITE BLOOD COUNT 4.9 x1000/uL (4.5-11.0)
[2024-11-09 15:07] LABS: ADD RBC MORPHOLOGY YES; DIFFERENTIAL COMMENT 1
[2024-11-09 15:14] LABS: CHLORIDE 99 mEq/L (98-107); POTASSIUM 3.9 mEq/L (3.5-5.1); SODIUM 140 mEq/L (136-145)
[2024-11-09 15:15] LABS: CARBON DIOXIDE 27 mEq/L (21-32)
[2024-11-09 15:16] LABS: CALCIUM 9.7 mg/dL (8.7-10.4); INR 1.2; PROTHROMBIN TIME 12.4 sec (9.6-11.0)
[2024-11-09 15:20] LABS: GLUCOSE 80 mg/dL (70-105)
[2024-11-09] MEDS: ONDANSETRON HCL 4MG/2ML INJ IV ONE (15:20)
[2024-11-09 15:21] LABS: TROPONIN I HIGH SENSITIVITY 19 ng/L (3.0-34); UREA NITROGEN BLOOD 20 mg/dL (9-23)
[2024-11-09 15:22] LABS: ALANINE AMINOTRANSFERASE < 7 IU/L (10-49); ALBUMIN 3.7 g/dL (3.2-4.8); ASPARTATE AMINOTRANSFERASE 13 IU/L (<34)
[2024-11-09 15:23] LABS: BILIRUBIN DIRECT 0.1 mg/dL (<=3.0); BILIRUBIN TOTAL 0.3 mg/dL (0.1-1.0); PROTEIN TOTAL 6.7 g/dL (6.0-8.3)
[2024-11-09 15:31] LABS: CREATININE 5.5 mg/dL (0.6-1.0); ETHANOL BLOOD < 10 mg/dL (<10)
[2024-11-09] MEDS ORDERED: CARVEDILOL 12.5MG TABLET PO ONE (16:30)
[2024-11-09 16:40] LABS: CLARITY URINE CLEAR (CLEAR); COLOR URINE YELLOW (YELLOW); GLUCOSE URINE TRACE (NEGATIVE); KETONES URINE NEGATIVE (NEGATIVE); LEUKOCYTE ESTERASE URINE NEGATIVE (NEGATIVE); NITRITE URINE NEGATIVE (NEGATIVE); OCCULT BLOOD URINE NEGATIVE (NEGATIVE); PH URINE >=9.0 (4.5-8.0); PROTEIN URINE 2+ (NEGATIVE); UROBILINOGEN URINE 0.2 E.U./dL (0.2-1.0)
[2024-11-09] MEDS: CARVEDILOL 6.25 MG TABLET PO NR (16:45)
[2024-11-09] MEDS: LISINOPRIL 10MG TABLET PO NR (16:46)
[2024-11-09] MEDS: HYDRALAZINE 20MG/ML VIAL IV ONE (16:46)
[2024-11-09 17:06] LABS: HYPOCHROMASIA 1+; MICROCYTOSIS 2+; PLATELET ESTIMATE NORMAL
[2024-11-09 17:23] LABS: BACTERIA URINE TRACE; RBC URINE 0-2 /hpf (0-2); SQUAMOUS EPITHELIAL CELL URINE FEW /lpf (RARE/1+); WBC URINE 0-2 /hpf (0-2)
[2024-11-09 19:34] VITALS: BP 148/58; PULSE 64; RESP 14; TEMP 36.7; O2SAT 98
== END 2024-11-09 20:18 | disposition home or self-care (01) ==
LOC: ER 14:04
DX: R11.2 Nausea with vomiting, unspecified (principal); E11.22 Type 2 diabetes mellitus with diabetic chronic kidney disease; I12.0 Hypertensive chronic kidney disease with stage 5 chronic kidney disease or end stage renal disease; N18.6 End stage renal disease; F03.90 Unspecified dementia, unspecified severity, without behavioral disturbance, psychotic disturbance, mood disturbance, and anxiety; Z79.899 Other long term (current) drug therapy; Z99.2 Dependence on renal dialysis; Z88.5 Allergy status to narcotic agent; Z88.6 Allergy status to analgesic agent
CPT/HCPCS: 80076; 80048; 81003; 80320; 82962; 83690; 85025; 85610; 84484; 36415; 71045; 93005; 96374; 96375; 99285; J0360; J2405; G0480

== ENCOUNTER 2025-01-10 09:21 | Inpatient (IN) | payer MEDICARE, OTHER ==
[2025-01-10] VITALS (9 sets, daily range): BP systolic 121–169; BP diastolic 60–96; PULSE 66–71; RESP 16–20; TEMP 36.61404–37.3; O2SAT 95–100
[~2025-01-10] VITALS: Ht 144.8 cm; Wt 49.9 kg
[~2025-01-10 09:21] MED LIST changes: +CARV12.545 PO; +HYDR100T31 PO; +LISI40TA13 MT; +MIRT-89 PO; +ROSU40TA PO; +VILA10TA2 PO
[2025-01-10] MEDS: LEVETIRACETAM 1000MG PREMIX 100 ML IV ONE (10:02)
[2025-01-10 10:04] LABS: HEMATOCRIT. 27.6 % (36.0-48.0); HEMOGLOBIN. 8.6 g/dL (12.0-16.0); MEAN CORPUSCULAR HEMOGLOBIN 25.5 pg (28.0-32.0); MEAN CORPUSCULAR HGB CONC 31.2 g/dL (31.0-37.0); MEAN CORPUSCULAR VOLUME 81.6 fL (81.0-99.0); MEAN PLATELET VOLUME 8.7 fl (7.4-10.4); PLATELET 188 x1000/uL (130-400); RED BLOOD CELL COUNT 3.38 mill/uL (4.2-5.4); RED CELL DISTRIBUTION WIDTH 24.9 % (11.6-14.6); WHITE BLOOD COUNT 5.6 x1000/uL (4.5-11.0)
[2025-01-10 10:13] LABS: CARBON DIOXIDE 31 mEq/L (21-32); CHLORIDE 96 mEq/L (98-107); POTASSIUM 4.5 mEq/L (3.5-5.1); SODIUM 137 mEq/L (136-145)
[2025-01-10 10:14] LABS: CALCIUM 9.5 mg/dL (8.7-10.4)
[2025-01-10 10:19] LABS: CREATININE 3.8 mg/dL (0.6-1.0); ETHANOL BLOOD < 10 mg/dL (<10); GLUCOSE 70 mg/dL (70-105); UREA NITROGEN BLOOD 27 mg/dL (9-23)
[2025-01-10 10:24] LABS: DIFFERENTIAL COMMENT 1
[2025-01-10 10:28] LABS: TROPONIN I HIGH SENSITIVITY 398 ng/L (3.0-34)
[2025-01-10] MEDS: MAGNESIUM 2 G PREMIX 50 ML IV NR (11:12)
[2025-01-10] MEDS ORDERED: ONDANSETRON HCL 4MG/2ML INJ IV PRN (12:15)
[2025-01-10] MEDS ORDERED: IPRATROPIUM/ALBUTEROL 0.5-3(2.5)MG/3ML NEB HHN PRN (12:15)
[2025-01-10] MEDS ORDERED: MAGNESIUM/ALUMINUM HYDROXIDE/SIMETHICONE 30ML UDC PO PRN (12:15)
[2025-01-10] MEDS ORDERED: DOCUSATE SODIUM 100MG CAPSULE PO PRN (12:15)
[2025-01-10] MEDS ORDERED: ACETAMINOPHEN 325MG TABLET PO PRN (12:15)
[2025-01-10] MEDS ORDERED: GUAIFENESIN 200MG/10ML SUGAR FREE UDC PO PRN (12:15)
[2025-01-10] MEDS ORDERED: NITROGLYCERIN 0.4MG TABLET SL SL PRN (12:45)
[2025-01-10] MEDS ORDERED: NALOXONE HCL 0.4MG/ML VIAL IV PRN (12:45)
[2025-01-10] MEDS: HYDRALAZINE HCL 100MG TABLET PO SCH (13:45)
[2025-01-10] MEDS: ACETAMINOPHEN 325MG TABLET PO PRN (13:45)
[2025-01-10 13:59] LABS: ANISOCYTOSIS 4+; PLATELET ESTIMATE NORMAL
[2025-01-10] MEDS ORDERED: ATOR40TA70 PO (16:55)
[2025-01-10] MEDS ORDERED: ISOS10TA95 PO (16:55)
[2025-01-10] MEDS ORDERED: FERR-71 PO (16:55)
[2025-01-10 17:55] LABS: CREATINE KINASE 29 IU/L (34-145)
[2025-01-10] MEDS: CARVEDILOL 6.25 MG TABLET PO SCH (21:00)
[2025-01-10] MEDS ORDERED: CARVEDILOL 12.5MG TABLET PO SCH (21:00)
[2025-01-10] MEDS: LEVETIRACETAM 500MG PREMIX 100 ML IV SCH (21:10)
[2025-01-10] MEDS: EPOETIN ALFA-EPBX 4,000 UNIT/ML VIAL SUBCUT SCH (21:19)
[2025-01-10] MEDS: ATORVASTATIN CALCIUM 40MG TABLET PO SCH (21:19)
[2025-01-10] MEDS: MIRTAZAPINE 15MG TABLET PO SCH (21:20)
[2025-01-10 22:05] LABS: HEPATITIS B SURFACE ANTIGEN NEGATIVE (Negative)
[2025-01-10 22:25] LABS: HEPATITIS A AB IGM NEGATIVE (Negative)
[2025-01-10 22:26] LABS: HEPATITIS B CORE AB IGM NEGATIVE (Negative); HEPATITIS C AB NON REACTIVE (Neg) (Negative)
[2025-01-10] MEDS: HYDROCODONE/ACETAMINOPHEN 5/325MG TABLET PO PRN (23:30)
[2025-01-11] VITALS (7 sets, daily range): BP systolic 93–170; BP diastolic 47–92; PULSE 60–79; RESP 18–63; TEMP 36.2–37.11408; O2SAT 95–98
[2025-01-11 00:11] LABS: CREATINE KINASE 28 IU/L (34-145)
[2025-01-11] MEDS: CLONIDINE 0.1MG TABLET PO PRN (05:21)
[2025-01-11 07:03] LABS: HEMATOCRIT. 29.3 % (36.0-48.0); HEMOGLOBIN. 9.3 g/dL (12.0-16.0); MEAN CORPUSCULAR HEMOGLOBIN 25.6 pg (28.0-32.0); MEAN CORPUSCULAR HGB CONC 31.5 g/dL (31.0-37.0); MEAN CORPUSCULAR VOLUME 81.3 fL (81.0-99.0); MEAN PLATELET VOLUME 9.5 fl (7.4-10.4); PLATELET 190 x1000/uL (130-400); RED BLOOD CELL COUNT 3.61 mill/uL (4.2-5.4); RED CELL DISTRIBUTION WIDTH 25.5 % (11.6-14.6); WHITE BLOOD COUNT 4.4 x1000/uL (4.5-11.0)
[2025-01-11 07:07] LABS: CALCIUM 9.6 mg/dL (8.7-10.4)
[2025-01-11 07:12] LABS: T4 FREE 1.16 ng/dL (0.89-1.76)
[2025-01-11 07:13] LABS: THYROID STIMULATING HORMONE 0.83 uIU/mL (0.55-4.78)
[2025-01-11 07:14] LABS: PHOSPHORUS 3.7 mg/dL (2.5-4.9)
[2025-01-11 07:21] LABS: DIFFERENTIAL COMMENT 1
[2025-01-11] MEDS: ASPIRIN 81MG EC TABLET PO SCH (09:12)
[2025-01-11] MEDS: NIFEDIPINE XL 60MG TAB PO SCH (09:13)
[2025-01-11] MEDS: LISINOPRIL 40MG TABLET PO SCH (09:14)
[2025-01-11 13:08] LABS: ANISOCYTOSIS 2+; HYPOCHROMASIA 1+
[2025-01-11 13:09] LABS: MICROCYTOSIS 1+; PLATELET ESTIMATE NORMAL
[2025-01-11] MEDS: ENOXAPARIN 30MG/0.3ML SYR SUBCUT SCH (17:39)
[2025-01-11] MEDS: HYDRALAZINE HCL 50MG TABLET PO SCH (21:00)
[2025-01-12] VITALS (10 sets, daily range): BP systolic 111–161; BP diastolic 49–75; PULSE 65–79; RESP 17–20; TEMP 36.5–36.9; O2SAT 93–100
[2025-01-12 07:28] LABS: HEMATOCRIT. 28.5 % (36.0-48.0); MEAN CORPUSCULAR HEMOGLOBIN 25.6 pg (28.0-32.0); MEAN CORPUSCULAR HGB CONC 31.7 g/dL (31.0-37.0); MEAN CORPUSCULAR VOLUME 80.9 fL (81.0-99.0); MEAN PLATELET VOLUME 8.9 fl (7.4-10.4); PLATELET 191 x1000/uL (130-400); RED BLOOD CELL COUNT 3.53 mill/uL (4.2-5.4); RED CELL DISTRIBUTION WIDTH 25.7 % (11.6-14.6); WHITE BLOOD COUNT 4.6 x1000/uL (4.5-11.0)
[2025-01-12 07:37] LABS: DIFFERENTIAL COMMENT 1
[2025-01-12 07:45] LABS: POTASSIUM 4.7 mEq/L (3.5-5.1)
[2025-01-12 07:46] LABS: CALCIUM 9.3 mg/dL (8.7-10.4)
[2025-01-12 08:23] LABS: CREATININE 4.7 mg/dL (0.6-1.0)
[2025-01-12] MEDS: LEVETIRACETAM 500MG TABLET PO SCH (09:24)
[2025-01-12] MEDS: LISINOPRIL 20MG TABLET PO SCH (09:25)
[2025-01-12] MEDS ORDERED: ASPI-1406 PO (12:16)
[2025-01-12] MEDS ORDERED: LISI20TA31 PO (12:16)
[2025-01-12] MEDS ORDERED: KEPP500 PO (12:16)
[2025-01-12] MEDS ORDERED: COR6 PO (12:16)
[2025-01-12 12:26] LABS: ANISOCYTOSIS 2+; HYPOCHROMASIA 1+; PLATELET ESTIMATE NORMAL; TARGET CELLS 1+
== END 2025-01-12 17:36 | disposition home or self-care (01) | DRG 100 ==
LOC: ER 09:21 → 8WST 11:22 → EDBEDREQ 11:24 → EDBEDREQTM 11:24
PROVIDERS: ADMIT Hospitalist; ATTEND Hospitalist
PROC: 5A1D70Z Performance of Urinary Filtration, Intermittent, Less than 6 Hours Per Day (ICD-10-PCS; 2025-01-10)
PROC: 4A00X4Z Measurement of Central Nervous Electrical Activity, External Approach (ICD-10-PCS; principal; 2025-01-11)
PROC: 5A1D70Z Performance of Urinary Filtration, Intermittent, Less than 6 Hours Per Day (ICD-10-PCS; 2025-01-12)
DX: G40.409 Other generalized epilepsy and epileptic syndromes, not intractable, without status epilepticus (principal); I21.A1 Myocardial infarction type 2; N18.6 End stage renal disease; I13.2 Hypertensive heart and chronic kidney disease with heart failure and with stage 5 chronic kidney disease, or end stage renal disease; I50.22 Chronic systolic (congestive) heart failure; D63.1 Anemia in chronic kidney disease; I35.0 Nonrheumatic aortic (valve) stenosis; I16.0 Hypertensive urgency; I25.10 Atherosclerotic heart disease of native coronary artery without angina pectoris; F03.90 Unspecified dementia, unspecified severity, without behavioral disturbance, psychotic disturbance, mood disturbance, and anxiety; F32.A Depression, unspecified; K21.9 Gastro-esophageal reflux disease without esophagitis; D63.8 Anemia in other chronic diseases classified elsewhere; E78.5 Hyperlipidemia, unspecified; Z86.73 Personal history of transient ischemic attack (TIA), and cerebral infarction without residual deficits; Z99.2 Dependence on renal dialysis; Z91.199 Patient's noncompliance with other medical treatment and regimen due to unspecified reason; Z79.82 Long term (current) use of aspirin; Z79.899 Other long term (current) drug therapy; Z88.0 Allergy status to penicillin; Z88.5 Allergy status to narcotic agent; Z90.49 Acquired absence of other specified parts of digestive tract; Z95.1 Presence of aortocoronary bypass graft; Z88.8 Allergy status to other drugs, medicaments and biological substances; Z82.49 Family history of ischemic heart disease and other diseases of the circulatory system
CPT/HCPCS: 36415; 71045; 80048; 80061; 80320; 82550; 84100; 84439; 84443; 84484; 85025; 86705; 86709; 87340; 90935; 93005; 95816; 97162; 97166; 97530; 99291; A4606; J0885; J1650; J1953; J3475; G0480

== ENCOUNTER 2025-01-15 23:47 | Emergency (ER) | payer OTHER ==
[~2025-01-15] VITALS: Ht 157.5 cm; Wt 50.0 kg
[~2025-01-15 23:47] MED LIST changes: +ASPI-1406 PO; -CARV12.545 PO; +COR6 PO; +FERR-71 PO; +ISOS10TA95 PO; +KEPP500 PO; -LEVE500T19 PO; +LISI20TA31 PO; -LISI40TA13 MT
[2025-01-15 23:59] VITALS: TEMP 37.1; O2SAT 97
[2025-01-16] MEDS ORDERED: MORPHINE SULFATE 4 MG/ML INJ (FOR IV/IM USE) IV STA (01:09)
[2025-01-16] MEDS ORDERED: ONDANSETRON HCL 4MG/2ML INJ IV STA (01:09)
[2025-01-16] MEDS ORDERED: FAMOTIDINE 20MG/2ML VIAL IV STA (01:09)
[2025-01-16 01:48] LABS: HEMATOCRIT. 31.1 % (36.0-48.0); HEMOGLOBIN. 9.6 g/dL (12.0-16.0); MEAN CORPUSCULAR HEMOGLOBIN 25.4 pg (28.0-32.0); MEAN CORPUSCULAR HGB CONC 30.9 g/dL (31.0-37.0); MEAN PLATELET VOLUME 8.4 fl (7.4-10.4); PLATELET 209 x1000/uL (130-400); RED BLOOD CELL COUNT 3.79 mill/uL (4.2-5.4); RED CELL DISTRIBUTION WIDTH 25.8 % (11.6-14.6); WHITE BLOOD COUNT 3.8 x1000/uL (4.5-11.0)
[2025-01-16 01:57] LABS: CARBON DIOXIDE 28 mEq/L (21-32); CHLORIDE 102 mEq/L (98-107); POTASSIUM 5.1 mEq/L (3.5-5.1); SODIUM 140 mEq/L (136-145)
[2025-01-16 01:58] LABS: CALCIUM 9.6 mg/dL (8.7-10.4)
[2025-01-16 02:03] LABS: GLUCOSE 79 mg/dL (70-105); UREA NITROGEN BLOOD 40 mg/dL (9-23)
[2025-01-16 02:04] LABS: ALANINE AMINOTRANSFERASE 11 IU/L (10-49)
[2025-01-16 02:05] LABS: ALBUMIN 4.2 g/dL (3.2-4.8); ASPARTATE AMINOTRANSFERASE 13 IU/L (<34); BILIRUBIN DIRECT < 0.1 mg/dL (<=3.0); BILIRUBIN TOTAL 0.2 mg/dL (0.1-1.0); PROTEIN TOTAL 6.7 g/dL (6.0-8.3)
[2025-01-16 02:31] LABS: DIFFERENTIAL COMMENT 1
[2025-01-16 02:45] LABS: CREATININE 5.7 mg/dL (0.6-1.0); TROPONIN I HIGH SENSITIVITY 88 ng/L (3.0-34)
[2025-01-16] MEDS: FAMOTIDINE 20MG/2ML VIAL IV NR (03:03)
[2025-01-16] MEDS: MORPHINE SULFATE 4 MG/ML INJ (FOR IV/IM USE) IV NR (03:03)
[2025-01-16] MEDS: ONDANSETRON HCL 4MG/2ML INJ IV NR (03:04)
[2025-01-16] MEDS: HYDRALAZINE 20MG/ML VIAL IV NR (04:08)
[2025-01-16] MEDS ORDERED: LEVOFLOXACIN 500MG PREMIX 100 ML IV ONE (04:45)
[2025-01-16 04:46] LABS: TROPONIN I HIGH SENSITIVITY 82 ng/L (3.0-34)
[2025-01-16 04:58] LABS: PLATELET ESTIMATE NORMAL
[2025-01-16] MEDS: METRONIDAZOLE 500 MG PREMIX 100 ML IV ONE (05:21)
[2025-01-16 05:58] VITALS: BP 160/56; PULSE 70; RESP 14; O2SAT 95
== END 2025-01-16 06:44 | disposition short-term general hospital (02) ==
LOC: ER 23:47 → CMPBEDREQ 01-18 08:02
DX: K52.9 Noninfective gastroenteritis and colitis, unspecified (principal); R10.13 Epigastric pain; R07.89 Other chest pain; J44.9 Chronic obstructive pulmonary disease, unspecified; F03.90 Unspecified dementia, unspecified severity, without behavioral disturbance, psychotic disturbance, mood disturbance, and anxiety; G40.909 Epilepsy, unspecified, not intractable, without status epilepticus; I50.9 Heart failure, unspecified; N18.6 End stage renal disease; Z79.899 Other long term (current) drug therapy; Z90.49 Acquired absence of other specified parts of digestive tract; Z95.1 Presence of aortocoronary bypass graft; Z98.890 Other specified postprocedural states; Z79.82 Long term (current) use of aspirin; Z99.2 Dependence on renal dialysis; Z88.6 Allergy status to analgesic agent; Z88.5 Allergy status to narcotic agent; Z88.0 Allergy status to penicillin
CPT/HCPCS: 99285; 74176; 96365; 96375; 71045; 80076; 80048; 83605; 83690; 85025; 84484; 36415; 93005; J3490 ×2; J0360; J2405; J2270

== ENCOUNTER 2025-01-27 11:09 | Inpatient (IN) | payer OTHER, MEDICARE ==
[~2025-01-27] VITALS: Ht 147.3 cm; Wt 49.9 kg
[2025-01-27 11:14] VITALS: O2SAT 98
[2025-01-27 11:46] LABS: HEMATOCRIT. 37.3 % (36.0-48.0); HEMOGLOBIN. 11.5 g/dL (12.0-16.0); MEAN CORPUSCULAR HEMOGLOBIN 25.5 pg (28.0-32.0); MEAN CORPUSCULAR HGB CONC 30.8 g/dL (31.0-37.0); MEAN CORPUSCULAR VOLUME 82.7 fL (81.0-99.0); MEAN PLATELET VOLUME 7.8 fl (7.4-10.4); PLATELET 250 x1000/uL (130-400); RED BLOOD CELL COUNT 4.51 mill/uL (4.2-5.4); RED CELL DISTRIBUTION WIDTH 25.2 % (11.6-14.6)
[2025-01-27 11:48] LABS: DIFFERENTIAL COMMENT 1
[2025-01-27 11:54] LABS: CHLORIDE 99 mEq/L (98-107); POTASSIUM 4.2 mEq/L (3.5-5.1); SODIUM 139 mEq/L (136-145)
[2025-01-27 11:56] LABS: CALCIUM 9.6 mg/dL (8.7-10.4); CARBON DIOXIDE 24 mEq/L (21-32)
[2025-01-27 12:00] LABS: INR 1.2; PROTHROMBIN TIME 12.3 sec (9.6-11.0)
[2025-01-27 12:01] LABS: UREA NITROGEN BLOOD 23 mg/dL (9-23)
[2025-01-27 12:03] LABS: ALANINE AMINOTRANSFERASE 9 IU/L (10-49); ASPARTATE AMINOTRANSFERASE 18 IU/L (<34); BILIRUBIN DIRECT 0.1 mg/dL (<=3.0); BILIRUBIN TOTAL 0.2 mg/dL (0.1-1.0)
[2025-01-27 12:04] LABS: PROTEIN TOTAL 6.6 g/dL (6.0-8.3)
[2025-01-27 12:17] LABS: ANISOCYTOSIS 2+; HYPOCHROMASIA 1+
[2025-01-27 12:18] LABS: PLATELET ESTIMATE NORMAL
[2025-01-27 12:21] LABS: CREATININE 5.1 mg/dL (0.6-1.0); GLUCOSE 39 mg/dL (70-105)
[2025-01-27] MEDS: DEXTROSE 50% WATER 50ML SYRINGE IV ONE (12:42)
[2025-01-27] MEDS ORDERED: ACETAMINOPHEN 325MG TABLET PO PRN (15:45)
[2025-01-27] MEDS ORDERED: NITROGLYCERIN 0.4MG TABLET SL SL PRN (15:45)
[2025-01-27] MEDS ORDERED: HYDROCODONE/ACETAMINOPHEN 5/325MG TABLET PO PRN (15:45)
[2025-01-27] MEDS ORDERED: GUAIFENESIN 200MG/10ML SUGAR FREE UDC PO PRN (15:45)
[2025-01-27] MEDS ORDERED: DOCUSATE SODIUM 100MG CAPSULE PO PRN (15:45)
[2025-01-27] MEDS ORDERED: CLONIDINE 0.1MG TABLET PO PRN (15:45)
[2025-01-27] MEDS ORDERED: MAGNESIUM/ALUMINUM HYDROXIDE/SIMETHICONE 30ML UDC PO PRN (15:45)
[2025-01-27] MEDS ORDERED: MORPHINE SULFATE 2 MG/ML INJ (NOT FOR IM USE) IV PRN (15:45)
[2025-01-27] MEDS ORDERED: ONDANSETRON HCL 4MG/2ML INJ IV PRN (15:45)
[2025-01-27] MEDS ORDERED: LOPERAMIDE HCL 2MG CAPSULE PO PRN (15:45)
[2025-01-27] MEDS ORDERED: IPRATROPIUM/ALBUTEROL 0.5-3(2.5)MG/3ML NEB HHN PRN (15:45)
[2025-01-27] MEDS: SODIUM CHLORIDE 0.9% 1,000 ML IV SCH (15:59)
[2025-01-27] MEDS: METRONIDAZOLE 500 MG PREMIX 100 ML IV SCH (16:11)
[2025-01-27] MEDS ORDERED: NALOXONE HCL 0.4MG/ML VIAL IV PRN (16:15)
[2025-01-27] MEDS: ISOSORBIDE MONONITRATE 20MG TABLET PO SCH (16:48)
[2025-01-27 17:19] LABS: PHOSPHORUS 4.6 mg/dL (2.5-4.9)
[2025-01-27 17:20] LABS: TROPONIN I HIGH SENSITIVITY 17 ng/L (3.0-34)
[2025-01-27 18:44] VITALS: BP 166/51; PULSE 57; RESP 18; TEMP 36.5; O2SAT 96
[2025-01-27 20:00] VITALS: BP 142/59; PULSE 99; RESP 17; TEMP 36.4; TEMP 36.5; O2SAT 99
[2025-01-27] MEDS: MIRTAZAPINE 15MG TABLET PO SCH (20:32)
[2025-01-27] MEDS: ATORVASTATIN CALCIUM 40MG TABLET PO SCH (20:32)
[2025-01-27] MEDS: LEVETIRACETAM 500MG TABLET PO SCH (20:32)
[2025-01-27] MEDS: HYDRALAZINE HCL 50MG TABLET PO SCH (20:32)
[2025-01-27] MEDS: CARVEDILOL 6.25 MG TABLET PO SCH (20:33)
[2025-01-27] MEDS: NIFEDIPINE XL 60MG TAB PO SCH (20:33)
[2025-01-27] MEDS: ACETAMINOPHEN 325MG TABLET PO PRN (20:39)
[2025-01-27] MEDS ORDERED: SEVELAMER CARBONATE 800 MG TABLET PO SCH (21:00)
[2025-01-28] VITALS (10 sets, daily range): BP systolic 107–145; BP diastolic 46–78; PULSE 58–78; RESP 17–18; TEMP 36.2–36.6696; O2SAT 98–100
[2025-01-28] MEDS: METRONIDAZOLE 500 MG PREMIX 100 ML IV SCH (05:36)
[2025-01-28] MEDS ORDERED: NIFEDIPINE XL 60MG TAB PO SCH (09:00)
[2025-01-28 10:38] LABS: HEMATOCRIT. 36.4 % (36.0-48.0); HEMOGLOBIN. 10.9 g/dL (12.0-16.0); LYMPHOCYTES % 25.9 % (20.0-50.0); MEAN CORPUSCULAR HEMOGLOBIN 25.4 pg (28.0-32.0); MEAN CORPUSCULAR VOLUME 84.5 fL (81.0-99.0); NEUTROPHILS % 54.1 % (40.0-76.0); PLATELET 192 x1000/uL (130-400); RED CELL DISTRIBUTION WIDTH 25.2 % (11.6-14.6); WHITE BLOOD COUNT 3.2 x1000/uL (4.5-11.0)
[2025-01-28 10:41] LABS: POTASSIUM 3.8 mEq/L (3.5-5.1)
[2025-01-28 10:48] LABS: CREATINE KINASE MB FRACTION 0.9 ng/mL (0.5-3.6)
[2025-01-28 10:51] LABS: T4 FREE 1.08 ng/dL (0.89-1.76)
[2025-01-28 10:52] LABS: THYROID STIMULATING HORMONE 0.44 uIU/mL (0.55-4.78)
[2025-01-28] MEDS: ALTEPLASE 2MG/VIAL ITC NR (11:31)
[2025-01-28 11:43] LABS: DIFFERENTIAL COMMENT 1
[2025-01-28] MEDS: PANTOPRAZOLE SODIUM 40 MG/VIAL IV SCH (13:12)
[2025-01-28] MEDS: LISINOPRIL 10MG TABLET PO SCH (13:12)
[2025-01-28] MEDS: ASPIRIN 81MG EC TABLET PO SCH (13:13)
[2025-01-29] MEDS ORDERED: LISINOPRIL 20MG TABLET PO SCH (09:00)
[2025-01-30] MEDS ORDERED: FERROUS SULFATE 325MG TABLET PO SCH (09:00)
[2025-02-02 14:08] LABS: FECAL FAT NEUTRAL. Normal (.); FECAL FAT TOTAL. Normal (.)
== END 2025-01-28 14:35 | disposition short-term general hospital (02) | DRG 391 ==
LOC: ER 11:09 → EDBEDREQ 11:37 → 8WST 13:40 → EDBEDREQ 15:11 → ENRESERV 17:32
PROVIDERS: ADMIT Internal Medicine; ATTEND Internal Medicine
PROC: 5A1D70Z Performance of Urinary Filtration, Intermittent, Less than 6 Hours Per Day (ICD-10-PCS; principal; 2025-01-28)
DX: K57.32 Diverticulitis of large intestine without perforation or abscess without bleeding (principal); N18.6 End stage renal disease; I13.2 Hypertensive heart and chronic kidney disease with heart failure and with stage 5 chronic kidney disease, or end stage renal disease; N25.81 Secondary hyperparathyroidism of renal origin; D64.9 Anemia, unspecified; E11.22 Type 2 diabetes mellitus with diabetic chronic kidney disease; E11.51 Type 2 diabetes mellitus with diabetic peripheral angiopathy without gangrene; K52.9 Noninfective gastroenteritis and colitis, unspecified; G40.909 Epilepsy, unspecified, not intractable, without status epilepticus; I25.10 Atherosclerotic heart disease of native coronary artery without angina pectoris; I50.9 Heart failure, unspecified; J44.9 Chronic obstructive pulmonary disease, unspecified; K21.9 Gastro-esophageal reflux disease without esophagitis; E83.52 Hypercalcemia; Z79.82 Long term (current) use of aspirin; Z79.899 Other long term (current) drug therapy; Z82.49 Family history of ischemic heart disease and other diseases of the circulatory system; Z87.891 Personal history of nicotine dependence; Z88.0 Allergy status to penicillin; Z88.5 Allergy status to narcotic agent; Z95.1 Presence of aortocoronary bypass graft; Z99.2 Dependence on renal dialysis; Z88.8 Allergy status to other drugs, medicaments and biological substances; Z90.49 Acquired absence of other specified parts of digestive tract
CPT/HCPCS: 36415; 74176; 80048; 80061; 80076; 82270; 82550; 82553; 82705; 82962; 83735; 83880; 84100; 84439; 84443; 84484; 85025; 87015; 87045; 87177; 87209; 87427; 87449; 87493; 89055; 90935; 93005; 97166; 99285; A4606; J2470; J2997; J3490

== ENCOUNTER 2025-02-06 10:37 | Inpatient (IN) | payer MEDICARE, OTHER ==
[~2025-02-06] VITALS: Ht 157.5 cm; Wt 55.8 kg
[2025-02-06] VITALS (17 sets, daily range): BP systolic 145–218; BP diastolic 67–191; PULSE 70–80; RESP 17–33; TEMP 36.114–36.7; O2SAT 94–100
[2025-02-06 11:24] LABS: CHLORIDE 98 mEq/L (98-107); POTASSIUM 4.9 mEq/L (3.5-5.1); SODIUM 139 mEq/L (136-145)
[2025-02-06 11:25] LABS: CALCIUM 10.2 mg/dL (8.7-10.4); CARBON DIOXIDE 28 mEq/L (21-32)
[2025-02-06 11:28] LABS: INR 1.1; PROTHROMBIN TIME 11.9 sec (9.6-11.0)
[2025-02-06 11:30] LABS: GLUCOSE 120 mg/dL (70-105); HEMATOCRIT. 36.9 % (36.0-48.0); HEMOGLOBIN. 11.4 g/dL (12.0-16.0); MEAN CORPUSCULAR HEMOGLOBIN 25.5 pg (28.0-32.0); MEAN CORPUSCULAR HGB CONC 30.8 g/dL (31.0-37.0); MEAN CORPUSCULAR VOLUME 82.8 fL (81.0-99.0); MEAN PLATELET VOLUME 8.8 fl (7.4-10.4); PLATELET 200 x1000/uL (130-400); RED BLOOD CELL COUNT 4.46 mill/uL (4.2-5.4); RED CELL DISTRIBUTION WIDTH 23.8 % (11.6-14.6); TROPONIN I HIGH SENSITIVITY 20 ng/L (3.0-34); UREA NITROGEN BLOOD 32 mg/dL (9-23); WHITE BLOOD COUNT 6.5 x1000/uL (4.5-11.0)
[2025-02-06 11:32] LABS: ALANINE AMINOTRANSFERASE 9 IU/L (10-49); ALBUMIN 4.1 g/dL (3.2-4.8); ASPARTATE AMINOTRANSFERASE 23 IU/L (<34); BILIRUBIN DIRECT 0.1 mg/dL (<=3.0); BILIRUBIN TOTAL 0.3 mg/dL (0.1-1.0); DIFFERENTIAL COMMENT 1; PROTEIN TOTAL 6.7 g/dL (6.0-8.3)
[2025-02-06 11:45] LABS: CREATININE 5.9 mg/dL (0.6-1.0)
[2025-02-06 12:10] LABS: PLATELET ESTIMATE NORMAL
[2025-02-06 12:11] LABS: ANISOCYTOSIS 2+; HYPOCHROMASIA 1+; TARGET CELLS 2+
[2025-02-06] MEDS ORDERED: ENALAPRIL 2.5MG/2ML VIAL 2ML IV ONE (12:15)
[2025-02-06] MEDS: ENALAPRIL 1.25MG/ML VIAL 1ML IV NR (12:32)
[2025-02-06] MEDS: FUROSEMIDE 40MG/4ML VIAL IVP ONE (12:32)
[2025-02-06 13:15] LABS: BG BASE EXCESS 1.8 mmol/L (-2.0-3.0); BG CARBOXYHEMOGLOBIN 1.2 % (0.5-1.5); BG DEOXYHEMOGLOBIN 2.1 % (0.0-5.0); BG FRACTION INSPIRED OXYGEN 40; BG METHEMOGLOBIN 0.3 % (0.5-1.5); BG OXYGEN SATURATION 97.9 % (94.0-98.0); BG OXYHEMOGLOBIN 96.4 % (94.0-98.0); BG PCO2 39.5 mmHg (32.0-45.0); BG PH 7.437 (7.350-7.450); BG PO2 105.9 mmHg (83.0-108.0); BG SAMPLE SITE RIGHT RADIAL; BG TOTAL HEMOGLOBIN 11.9 g/dL (12.0-16.0); BG TOTAL RESPIRATORY RATE 29 b/min; BG VENT MODE MASK - BIPAP
[2025-02-06] MEDS: HYDRALAZINE 20MG/ML VIAL IV SCH (14:16)
[2025-02-06] MEDS ORDERED: DEXTROSE 50% WATER 50ML SYRINGE IV PRN (14:30)
[2025-02-06] MEDS ORDERED: IPRATROPIUM/ALBUTEROL 0.5-3(2.5)MG/3ML NEB HHN PRN (14:30)
[2025-02-06] MEDS ORDERED: GUAIFENESIN 200MG/10ML SUGAR FREE UDC PO PRN (14:30)
[2025-02-06] MEDS ORDERED: ONDANSETRON HCL 4MG/2ML INJ IV PRN (14:30)
[2025-02-06] MEDS ORDERED: DOCUSATE SODIUM 100MG CAPSULE PO PRN (14:30)
[2025-02-06] MEDS ORDERED: MAGNESIUM/ALUMINUM HYDROXIDE/SIMETHICONE 30ML UDC PO PRN (14:30)
[2025-02-06 14:59] LABS: HEPATITIS B SURFACE ANTIGEN NEGATIVE (Negative)
[2025-02-06 15:20] LABS: HEPATITIS A AB IGM NEGATIVE (Negative); HEPATITIS B CORE AB IGM NEGATIVE (Negative)
[2025-02-06 15:21] LABS: HEPATITIS C AB NON REACTIVE (Neg) (Negative)
[2025-02-06 15:22] LABS: PHOSPHORUS 4.5 mg/dL (2.5-4.9)
[2025-02-06] MEDS: NIFEDIPINE XL 60MG TAB PO SCH (15:24)
[2025-02-06] MEDS: CARVEDILOL 6.25 MG TABLET PO SCH (16:22)
[2025-02-06] MEDS: HYDRALAZINE HCL 50MG TABLET PO SCH (16:22)
[2025-02-06] MEDS ORDERED: BLOOD SUGAR DIAGNOSTIC STRIP TEST SCH (17:00)
[2025-02-06] MEDS ORDERED: PNEUMOCOCCAL 20-VAL CONJ-DIP CRM 0.5ML IM ONE (20:00)
[2025-02-06] MEDS ORDERED: LISINOPRIL 40MG TABLET PO SCH (21:00)
[2025-02-06] MEDS: MIRTAZAPINE 15MG TABLET PO SCH (21:40)
[2025-02-06] MEDS: LEVETIRACETAM 500MG TABLET PO SCH (21:41)
[2025-02-06] MEDS: ATORVASTATIN CALCIUM 40MG TABLET PO SCH (21:41)
[2025-02-06] MEDS: CLONIDINE 0.1MG TABLET PO PRN (22:21)
[2025-02-06 23:37] LABS: TROPONIN I HIGH SENSITIVITY 28 ng/L (3.0-34)
[2025-02-06 23:38] LABS: CREATINE KINASE 22 IU/L (34-145)
[2025-02-07] VITALS (10 sets, daily range): BP systolic 121–187; BP diastolic 52–85; PULSE 65–88; RESP 19–28; TEMP 36.7–37.6; O2SAT 96–100
[2025-02-07] MEDS: HYDRALAZINE 20MG/ML VIAL IV PRN (03:15)
[2025-02-07] MEDS: ACETAMINOPHEN 325MG TABLET PO PRN (06:09)
[2025-02-07] MEDS ORDERED: LIDOCAINE HCL/PF 1% 2ML VIAL ONE (08:00)
[2025-02-07] MEDS: PANTOPRAZOLE 40MG DR TABLET PO SCH (10:25)
[2025-02-07] MEDS: ISOSORBIDE MONONITRATE 60MG TABLET SR 24HR PO SCH (10:26)
[2025-02-07] MEDS: CARVEDILOL 6.25 MG TABLET PO SCH (10:26)
[2025-02-07] MEDS: FOLIC ACID/VITAMIN B COMP W-C TABLET PO SCH (10:27)
[2025-02-07] MEDS: LISINOPRIL 20MG TABLET PO SCH (10:27)
[2025-02-07 16:46] LABS: BASOPHILS % 0.8 % (0.0-2.0); EOSINOPHILS % 1.6 % (0.0-5.0); HEMATOCRIT. 31.9 % (36.0-48.0); HEMOGLOBIN. 9.8 g/dL (12.0-16.0); LYMPHOCYTES % 11.4 % (20.0-50.0); MEAN CORPUSCULAR HEMOGLOBIN 25.5 pg (28.0-32.0); MEAN CORPUSCULAR HGB CONC 30.7 g/dL (31.0-37.0); MEAN CORPUSCULAR VOLUME 83.1 fL (81.0-99.0); MEAN PLATELET VOLUME 9.4 fl (7.4-10.4); MONOCYTES % 11.2 % (2.0-8.0); PLATELET 159 x1000/uL (130-400); RED BLOOD CELL COUNT 3.84 mill/uL (4.2-5.4); RED CELL DISTRIBUTION WIDTH 23.2 % (11.6-14.6); WHITE BLOOD COUNT 4.7 x1000/uL (4.5-11.0)
[2025-02-07 16:49] LABS: DIFFERENTIAL COMMENT 1
[2025-02-07 16:53] LABS: CHLORIDE 108 mEq/L (98-107); POTASSIUM 4.7 mEq/L (3.5-5.1); SODIUM 139 mEq/L (136-145)
[2025-02-07 16:54] LABS: CALCIUM 9.4 mg/dL (8.7-10.4); CARBON DIOXIDE 27 mEq/L (21-32)
[2025-02-07 16:58] LABS: TROPONIN I HIGH SENSITIVITY 19 ng/L (3.0-34)
[2025-02-07 16:59] LABS: CREATINE KINASE 16 IU/L (34-145); GLUCOSE 155 mg/dL (70-105); UREA NITROGEN BLOOD 30 mg/dL (9-23)
[2025-02-07 17:00] LABS: ALANINE AMINOTRANSFERASE < 7 IU/L (10-49); ASPARTATE AMINOTRANSFERASE 10 IU/L (<34)
[2025-02-07 17:01] LABS: ALBUMIN 3.3 g/dL (3.2-4.8); BILIRUBIN DIRECT 0.2 mg/dL (<=3.0); BILIRUBIN TOTAL 0.6 mg/dL (0.1-1.0); PHOSPHORUS 4.5 mg/dL (2.5-4.9); PROTEIN TOTAL 5.5 g/dL (6.0-8.3)
[2025-02-07 17:02] LABS: CREATININE 5.1 mg/dL (0.6-1.0); THYROID STIMULATING HORMONE 0.25 uIU/mL (0.55-4.78)
[2025-02-07 17:03] LABS: T4 FREE 1.04 ng/dL (0.89-1.76)
== END 2025-02-07 17:25 | disposition short-term general hospital (02) | DRG 291 ==
LOC: ER 10:37 → 5EST 13:33 → EDBEDREQ 13:38 → EDBEDREQTM 13:38 → EDBEDREQ 13:39 → EDBEDREQSVC 13:39 → ENRESERV 16:33
PROVIDERS: ADMIT Internal Medicine; ATTEND Internal Medicine
PROC: 5A09357 Assistance with Respiratory Ventilation, Less than 24 Consecutive Hours, Continuous Positive Airway Pressure (ICD-10-PCS; principal; 2025-02-06)
PROC: 5A1D70Z Performance of Urinary Filtration, Intermittent, Less than 6 Hours Per Day (ICD-10-PCS; 2025-02-06)
DX: I13.2 Hypertensive heart and chronic kidney disease with heart failure and with stage 5 chronic kidney disease, or end stage renal disease (principal); I50.43 Acute on chronic combined systolic (congestive) and diastolic (congestive) heart failure; J96.01 Acute respiratory failure with hypoxia; N18.6 End stage renal disease; I16.1 Hypertensive emergency; J84.9 Interstitial pulmonary disease, unspecified; F03.93 Unspecified dementia, unspecified severity, with mood disturbance; Z99.2 Dependence on renal dialysis; Z66 Do not resuscitate; E11.22 Type 2 diabetes mellitus with diabetic chronic kidney disease; D64.9 Anemia, unspecified; E11.65 Type 2 diabetes mellitus with hyperglycemia; I35.0 Nonrheumatic aortic (valve) stenosis; J44.9 Chronic obstructive pulmonary disease, unspecified; K21.9 Gastro-esophageal reflux disease without esophagitis; E11.42 Type 2 diabetes mellitus with diabetic polyneuropathy; K59.00 Constipation, unspecified; I35.8 Other nonrheumatic aortic valve disorders; E21.3 Hyperparathyroidism, unspecified; G40.909 Epilepsy, unspecified, not intractable, without status epilepticus; I25.10 Atherosclerotic heart disease of native coronary artery without angina pectoris; K80.20 Calculus of gallbladder without cholecystitis without obstruction; E11.51 Type 2 diabetes mellitus with diabetic peripheral angiopathy without gangrene; Z91.158 Patient's noncompliance with renal dialysis for other reason; Z79.899 Other long term (current) drug therapy; Z91.199 Patient's noncompliance with other medical treatment and regimen due to unspecified reason; Z95.1 Presence of aortocoronary bypass graft; Z82.49 Family history of ischemic heart disease and other diseases of the circulatory system; Z88.0 Allergy status to penicillin; Z88.5 Allergy status to narcotic agent; Z90.49 Acquired absence of other specified parts of digestive tract; Z87.01 Personal history of pneumonia (recurrent); Z87.440 Personal history of urinary (tract) infections
CPT/HCPCS: 36415; 36600; 71045; 80048; 80076; 82375; 82550; 82805; 82962; 83735; 83880; 84100; 84439; 84443; 84484; 85025; 86705; 86709; 87340; 90935; 94660; 99285; J0360; J1940; J3490

== ENCOUNTER 2025-04-30 11:08 | Inpatient (IN) | payer MEDICARE, OTHER ==
[~2025-04-30] VITALS: Ht 165.1 cm; Wt 50.8 kg
[2025-04-30 11:10] VITALS: O2SAT 96
[2025-04-30 13:13] LABS: BASOPHILS % 1.3 % (0.0-2.0); EOSINOPHILS % 2.9 % (0.0-5.0); HEMATOCRIT. 34.0 % (36.0-48.0); HEMOGLOBIN. 10.7 g/dL (12.0-16.0); LYMPHOCYTES % 23.9 % (20.0-50.0); MEAN PLATELET VOLUME 9.8 fl (7.4-10.4); MONOCYTES % 11.2 % (2.0-8.0); NEUTROPHILS % 60.7 % (40.0-76.0); PLATELET 175 x1000/uL (130-400); RED BLOOD CELL COUNT 4.18 mill/uL (4.2-5.4); RED CELL DISTRIBUTION WIDTH 24.0 % (11.6-14.6)
[2025-04-30 13:14] LABS: ADD RBC MORPHOLOGY YES
[2025-04-30 13:25] LABS: CREATININE 4.9 mg/dL (0.6-1.0)
[2025-04-30 13:26] LABS: TROPONIN I HIGH SENSITIVITY 23 ng/L (3.0-34); UREA NITROGEN BLOOD 29 mg/dL (9-23)
[2025-04-30 13:27] LABS: ASPARTATE AMINOTRANSFERASE 14 IU/L (<34)
[2025-04-30 13:28] LABS: BILIRUBIN DIRECT 0.2 mg/dL (<=3.0); BILIRUBIN TOTAL 0.4 mg/dL (0.1-1.0); PROTEIN TOTAL 6.2 g/dL (6.0-8.3)
[2025-04-30 13:52] LABS: PLATELET ESTIMATE NORMAL
[2025-04-30 15:09] LABS: TROPONIN I HIGH SENSITIVITY 22 ng/L (3.0-34)
[2025-04-30 16:00] VITALS: BP 135/58; PULSE 69; RESP 18; TEMP 36.7; O2SAT 99
[2025-04-30 16:30] VITALS: BP 135/58; PULSE 69; RESP 18; TEMP 36.9184
[2025-04-30] MEDS ORDERED: DOCUSATE SODIUM 100MG CAPSULE PO PRN (17:15)
[2025-04-30] MEDS ORDERED: GUAIFENESIN 200MG/10ML SUGAR FREE UDC PO PRN (17:15)
[2025-04-30] MEDS ORDERED: ONDANSETRON HCL 4MG/2ML INJ IV PRN (17:15)
[2025-04-30] MEDS ORDERED: ACETAMINOPHEN 325MG TABLET PO PRN (17:15)
[2025-04-30] MEDS ORDERED: MAGNESIUM/ALUMINUM HYDROXIDE/SIMETHICONE 30ML UDC PO PRN (17:15)
[2025-04-30] MEDS ORDERED: IPRATROPIUM/ALBUTEROL 0.5-3(2.5)MG/3ML NEB HHN PRN (17:15)
[2025-04-30] MEDS: ACETAMINOPHEN 325MG TABLET PO PRN (17:56)
[2025-04-30] MEDS: ASPIRIN 81MG TABLET PO SCH (17:56)
[2025-04-30] MEDS: FUROSEMIDE 100MG/10ML VIAL IVP SCH (18:13)
[2025-04-30 20:00] VITALS: BP 157/54; PULSE 73; RESP 17; TEMP 36.6; O2SAT 96
[2025-04-30] MEDS: CARVEDILOL 6.25 MG TABLET PO SCH (20:40)
[2025-04-30] MEDS: ENOXAPARIN 30MG/0.3ML SYR SUBCUT SCH (20:41)
[2025-04-30] MEDS: LEVETIRACETAM 500MG TABLET PO SCH (20:41)
[2025-04-30 21:01] LABS: PHOSPHORUS 4.7 mg/dL (2.5-4.9)
[2025-04-30] MEDS: HYDRALAZINE HCL 100MG TABLET PO SCH (21:30)
[2025-04-30 23:28] LABS: TROPONIN I HIGH SENSITIVITY 24 ng/L (3.0-34)
[2025-05-01] VITALS (14 sets, daily range): BP systolic 105–197; BP diastolic 57–85; PULSE 54–70; RESP 15–20; TEMP 36.114–36.9; O2SAT 95–100
[2025-05-01] MEDS: CLONIDINE 0.1MG TABLET PO PRN (03:46)
[2025-05-01 07:03] LABS: TROPONIN I HIGH SENSITIVITY 22 ng/L (3.0-34)
[2025-05-01 07:04] LABS: UREA NITROGEN BLOOD 38 mg/dL (9-23)
[2025-05-01 07:06] LABS: T4 FREE 0.99 ng/dL (0.89-1.76)
[2025-05-01 07:56] LABS: BASOPHILS % 0.8 % (0.0-2.0); EOSINOPHILS % 3.9 % (0.0-5.0); HEMATOCRIT. 33.7 % (36.0-48.0); HEMOGLOBIN. 10.4 g/dL (12.0-16.0); LYMPHOCYTES % 11.9 % (20.0-50.0); MEAN PLATELET VOLUME 10.0 fl (7.4-10.4); MONOCYTES % 9.0 % (2.0-8.0); NEUTROPHILS % 74.4 % (40.0-76.0); PLATELET 162 x1000/uL (130-400); RED BLOOD CELL COUNT 4.09 mill/uL (4.2-5.4); RED CELL DISTRIBUTION WIDTH 23.9 % (11.6-14.6)
[2025-05-01 08:00] LABS: CREATININE 5.8 mg/dL (0.6-1.0)
[2025-05-01] MEDS: ISOSORBIDE DINITRATE 10MG TABLET PO SCH (09:00)
[2025-05-01] MEDS ORDERED: ASPIRIN 81MG TABLET PO SCH (09:00)
[2025-05-01] MEDS: PANTOPRAZOLE SODIUM 40 MG/VIAL IV SCH (09:00)
[2025-05-01] MEDS: LISINOPRIL 20MG TABLET PO SCH (09:00)
[2025-05-01] MEDS: CINACALCET HCL 30MG TABLET PO SCH (10:00)
[2025-05-01] MEDS ORDERED: CINACALCET HCL 60MG TABLET PO SCH (10:00)
[2025-05-01] MEDS: FUROSEMIDE 40MG TABLET PO SCH (10:30)
[2025-05-01] MEDS: FOLIC ACID/VITAMIN B COMP W-C TABLET PO SCH (10:30)
[2025-05-01] MEDS: ATORVASTATIN CALCIUM 40MG TABLET PO SCH (21:08)
[2025-05-02] VITALS (7 sets, daily range): BP systolic 109–186; BP diastolic 44–80; PULSE 63–74; RESP 16–20; TEMP 36.114–36.9; O2SAT 95–100
[2025-05-02] MEDS: CINACALCET HCL 60MG TABLET PO SCH (09:04)
[2025-05-02 11:13] LABS: HEMATOCRIT. 34.5 % (36.0-48.0); HEMOGLOBIN. 10.6 g/dL (12.0-16.0); MEAN PLATELET VOLUME 9.7 fl (7.4-10.4); PLATELET 165 x1000/uL (130-400); RED BLOOD CELL COUNT 4.19 mill/uL (4.2-5.4); RED CELL DISTRIBUTION WIDTH 24.5 % (11.6-14.6)
[2025-05-02 11:27] LABS: CREATININE 4.5 mg/dL (0.6-1.0); UREA NITROGEN BLOOD 23.0 mg/dL (9-23)
[2025-05-02 11:29] LABS: PHOSPHORUS 4.9 mg/dL (2.5-4.9)
[2025-05-02] MEDS ORDERED: NITROGLYCERIN 0.4MG TABLET SL SL PRN (11:30)
[2025-05-02 13:15] LABS: BAND% 7.0 % (1.0-6.0); EOSINOPHILS % MANUAL 6.0 % (0.0-5.0); LYMPHOCYTES % MANUAL 13.0 % (20.0-60.0); MONOCYTES % MANUAL 13.0 % (2.0-8.0); NEUTROPHILS % MANUAL 61.0 % (45.0-75.0); PLATELET ESTIMATE NORMAL
[2025-05-02 14:44] LABS: TROPONIN I HIGH SENSITIVITY 26 ng/L (3.0-34)
== END 2025-05-02 19:00 | disposition short-term general hospital (02) | DRG 291 ==
LOC: ER 11:08 → EDBEDREQTM 14:39 → EDBEDREQ 14:39 → ENRESERV 15:10 → 5WST 15:19
PROVIDERS: ADMIT Internal Medicine; ATTEND Internal Medicine
PROC: 5A1D70Z Performance of Urinary Filtration, Intermittent, Less than 6 Hours Per Day (ICD-10-PCS; principal; 2025-05-01)
DX: I13.2 Hypertensive heart and chronic kidney disease with heart failure and with stage 5 chronic kidney disease, or end stage renal disease (principal); I50.23 Acute on chronic systolic (congestive) heart failure; J96.01 Acute respiratory failure with hypoxia; N18.6 End stage renal disease; I24.9 Acute ischemic heart disease, unspecified; N25.81 Secondary hyperparathyroidism of renal origin; I25.10 Atherosclerotic heart disease of native coronary artery without angina pectoris; E11.22 Type 2 diabetes mellitus with diabetic chronic kidney disease; I35.0 Nonrheumatic aortic (valve) stenosis; K21.9 Gastro-esophageal reflux disease without esophagitis; F32.A Depression, unspecified; E78.5 Hyperlipidemia, unspecified; D63.8 Anemia in other chronic diseases classified elsewhere; G40.909 Epilepsy, unspecified, not intractable, without status epilepticus; F03.90 Unspecified dementia, unspecified severity, without behavioral disturbance, psychotic disturbance, mood disturbance, and anxiety; J44.9 Chronic obstructive pulmonary disease, unspecified; Z95.1 Presence of aortocoronary bypass graft; Z79.82 Long term (current) use of aspirin; Z79.899 Other long term (current) drug therapy; Z82.49 Family history of ischemic heart disease and other diseases of the circulatory system; Z90.49 Acquired absence of other specified parts of digestive tract; Z88.0 Allergy status to penicillin; Z88.5 Allergy status to narcotic agent; Z99.2 Dependence on renal dialysis
CPT/HCPCS: 36415; 71045; 76705; 80048; 80076; 82550; 82728; 83540; 83550; 83605; 83735; 83880; 84100; 84145; 84439; 84443; 84484; 85025; 90935; 93005; 97166; 99285; A4606; J1650; J1938; J2470

== ENCOUNTER 2025-05-13 21:08 | Emergency (ER) | payer MEDICARE, OTHER ==
[~2025-05-13] VITALS: Ht 165.1 cm; Wt 55.0 kg
[2025-05-13 21:14] VITALS: TEMP 37.1; O2SAT 100
[2025-05-13] MEDS ORDERED: MORPHINE SULFATE 2 MG/ML INJ (NOT FOR IM USE) IV ONE (21:45)
[2025-05-13] MEDS ORDERED: CEFTRIAXONE 1GM/50ML 50 ML IV SCH (21:51)
[2025-05-13 23:39] LABS: HEMATOCRIT. 34.0 % (36.0-48.0); HEMOGLOBIN. 10.6 g/dL (12.0-16.0); MEAN PLATELET VOLUME 8.6 fl (7.4-10.4); PLATELET 203 x1000/uL (130-400); RED BLOOD CELL COUNT 4.12 mill/uL (4.2-5.4); RED CELL DISTRIBUTION WIDTH 24.4 % (11.6-14.6)
[2025-05-13 23:53] LABS: UREA NITROGEN BLOOD 55 mg/dL (9-23)
[2025-05-13 23:55] LABS: ASPARTATE AMINOTRANSFERASE 12 IU/L (<34); BILIRUBIN DIRECT 0.2 mg/dL (<=3.0); BILIRUBIN TOTAL 0.6 mg/dL (0.1-1.0); PROTEIN TOTAL 6.3 g/dL (6.0-8.3)
[2025-05-13 23:56] LABS: CREATININE 6.9 mg/dL (0.6-1.0)
[2025-05-14 00:10] LABS: INR 1.2
[2025-05-14 00:12] VITALS: O2SAT 94
[2025-05-14 00:31] LABS: EOSINOPHILS % MANUAL 7.0 % (0.0-5.0); LYMPHOCYTES % MANUAL 23.0 % (20.0-60.0); MONOCYTES % MANUAL 9.0 % (2.0-8.0); NEUTROPHILS % MANUAL 61.0 % (45.0-75.0); PLATELET ESTIMATE NORMAL
[2025-05-14 00:36] LABS: TROPONIN I HIGH SENSITIVITY 31 ng/L (3.0-34)
[2025-05-14 00:48] VITALS: BP 183/89; PULSE 74; RESP 17
[2025-05-14] MEDS: CEFTRIAXONE 1GM/50ML 50 ML IV SCH (00:48)
[2025-05-14] MEDS: MORPHINE SULFATE 2 MG/ML INJ (NOT FOR IM USE) IV NR (00:48)
[2025-05-14] MEDS ORDERED: CLONIDINE 0.2MG TABLET PO ONE (02:00)
[2025-05-14] MEDS: CLONIDINE 0.1MG TABLET PO NR (02:07)
[2025-05-14 03:51] LABS: INFLUENZA TYPE A Presumptive Negative (Pres. Neg.)
[2025-05-14 03:52] LABS: INFLUENZA TYPE B Presumptive Negative (Pres. Neg.)
== END 2025-05-14 02:30 | disposition short-term general hospital (02) ==
LOC: ER 21:08 → CMPBEDREQ 05-14 07:47
DX: N18.6 End stage renal disease (principal); E11.22 Type 2 diabetes mellitus with diabetic chronic kidney disease; I13.2 Hypertensive heart and chronic kidney disease with heart failure and with stage 5 chronic kidney disease, or end stage renal disease; I50.9 Heart failure, unspecified; Z79.82 Long term (current) use of aspirin; Z79.899 Other long term (current) drug therapy; Z88.0 Allergy status to penicillin; Z88.1 Allergy status to other antibiotic agents; Z88.5 Allergy status to narcotic agent; Z88.6 Allergy status to analgesic agent; Z91.158 Patient's noncompliance with renal dialysis for other reason; Z95.1 Presence of aortocoronary bypass graft; Z99.2 Dependence on renal dialysis
CPT/HCPCS: 99285; 71045; 80076; 80048; 83605; 85025; 85610; 87040; 36415; 84145; 93005; 96365; 96366; 96375; 87426; 83880; 83690; 84484; 87804 ×2; J0696; J2270

== ENCOUNTER 2025-06-14 06:26 | Inpatient (IN) | payer OTHER, MEDICARE ==
[2025-06-14] VITALS (16 sets, daily range): BP systolic 112–177; BP diastolic 51–84; PULSE 65–77; RESP 17–21; TEMP 36.6–36.72516; O2SAT 99–100
[~2025-06-14] VITALS: Ht 147.3 cm; Wt 52.8 kg
[2025-06-14 07:08] LABS: BASOPHILS % 1.0 % (0.0-2.0); EOSINOPHILS % 2.8 % (0.0-5.0); HEMATOCRIT. 34.1 % (36.0-48.0); HEMOGLOBIN. 10.6 g/dL (12.0-16.0); LYMPHOCYTES % 7.8 % (20.0-50.0); MEAN PLATELET VOLUME 8.6 fl (7.4-10.4); MONOCYTES % 10.7 % (2.0-8.0); NEUTROPHILS % 77.7 % (40.0-76.0); PLATELET 186 x1000/uL (130-400); RED BLOOD CELL COUNT 4.20 mill/uL (4.2-5.4); RED CELL DISTRIBUTION WIDTH 23.1 % (11.6-14.6)
[2025-06-14 07:16] LABS: ADD RBC MORPHOLOGY YES
[2025-06-14 07:35] LABS: UREA NITROGEN BLOOD 38 mg/dL (9-23)
[2025-06-14 07:36] LABS: TROPONIN I HIGH SENSITIVITY 27 ng/L (3.0-34)
[2025-06-14 08:00] LABS: CREATININE 5.2 mg/dL (0.6-1.0)
[2025-06-14] MEDS ORDERED: FUROSEMIDE 40MG/4ML VIAL IVP ONE (08:45)
[2025-06-14] MEDS ORDERED: ENALAPRIL 2.5MG/2ML VIAL 2ML IV ONE (08:45)
[2025-06-14] MEDS: FUROSEMIDE 40MG/4ML VIAL IVP NR (09:01)
[2025-06-14] MEDS: ENALAPRIL 1.25MG/ML VIAL 1ML IV NR (09:08)
[2025-06-14 09:37] LABS: PLATELET ESTIMATE NORMAL
[2025-06-14] MEDS ORDERED: IPRATROPIUM/ALBUTEROL 0.5-3(2.5)MG/3ML NEB HHN PRN (09:45)
[2025-06-14] MEDS ORDERED: GUAIFENESIN 200MG/10ML SUGAR FREE UDC PO PRN (09:45)
[2025-06-14] MEDS ORDERED: ACETAMINOPHEN 325MG TABLET PO PRN (09:45)
[2025-06-14] MEDS ORDERED: DOCUSATE SODIUM 100MG CAPSULE PO PRN (09:45)
[2025-06-14 10:31] LABS: INFLUENZA TYPE A Presumptive Negative (Pres. Neg.); INFLUENZA TYPE B Presumptive Negative (Pres. Neg.)
[2025-06-14] MEDS ORDERED: DEXTROSE 50% WATER 50ML SYRINGE IV PRN (12:30)
[2025-06-14] MEDS: LEVETIRACETAM 500MG TABLET PO SCH (12:46)
[2025-06-14] MEDS: BLOOD SUGAR DIAGNOSTIC STRIP TEST SCH (12:46)
[2025-06-14] MEDS: HYDRALAZINE HCL 100MG TABLET PO SCH (13:40)
[2025-06-14] MEDS: CINACALCET HCL 30MG TABLET PO SCH (13:40)
[2025-06-14] MEDS: ISOSORBIDE DINITRATE 10MG TABLET PO SCH (13:40)
[2025-06-14] MEDS ORDERED: HYDRALAZINE HCL 25MG TABLET PO SCH (14:00)
[2025-06-14] MEDS: ENOXAPARIN 30MG/0.3ML SYR SUBCUT SCH (15:00)
[2025-06-14] MEDS: ONDANSETRON HCL 4MG/2ML INJ IV PRN (16:49)
[2025-06-14] MEDS: ACETAMINOPHEN 325MG TABLET PO PRN (16:49)
[2025-06-14 18:11] LABS: TROPONIN I HIGH SENSITIVITY 28 ng/L (3.0-34)
[2025-06-14 18:14] LABS: FOLIC ACID (FOLATE) SERUM 12.53 ng/mL (>5.38)
[2025-06-14 18:15] LABS: VITAMIN B12 SERUM 546 pg/mL (211-911)
[2025-06-14] MEDS: ATORVASTATIN CALCIUM 40MG TABLET PO SCH (21:01)
[2025-06-14] MEDS: CARVEDILOL 6.25 MG TABLET PO SCH (21:02)
[2025-06-15] VITALS: BP 121/48; PULSE 71; RESP 18; TEMP 36.7; O2SAT 99
[2025-06-15 04:00] VITALS: BP 142/56; PULSE 63; RESP 16; TEMP 36.4; O2SAT 99
[2025-06-15 08:19] VITALS: BP 168/65; PULSE 64; RESP 18; TEMP 37; O2SAT 96
[2025-06-15] MEDS ORDERED: LISINOPRIL 20MG TABLET PO SCH (09:00)
[2025-06-15] MEDS ORDERED: ISOSORBIDE MONONITRATE 20MG TABLET PO SCH (09:00)
[2025-06-15] MEDS ORDERED: NIFEDIPINE XL 60MG TAB PO SCH (09:00)
[2025-06-15] MEDS ORDERED: ASPIRIN 81MG TABLET PO SCH (09:00)
[2025-06-15] MEDS: ASPIRIN 81MG TABLET PO SCH (09:03)
[2025-06-15] MEDS: SEVELAMER CARBONATE 800 MG TABLET PO SCH (09:03)
[2025-06-15] MEDS: LISINOPRIL 20MG TABLET PO SCH (09:04)
[2025-06-15] MEDS: CINACALCET HCL 60MG TABLET PO SCH (09:04)
[2025-06-15 11:59] VITALS: BP 137/45; PULSE 71; RESP 18; TEMP 36.8; O2SAT 100
[2025-06-15] MEDS: DOXYCYCLINE 100MG/100ML 100 ML IV SCH (15:59)
[2025-06-15 16:03] VITALS: BP 140/48; PULSE 63; RESP 20; TEMP 36.4; O2SAT 99
[2025-06-15 20:08] VITALS: BP 152/48; PULSE 74; RESP 20; TEMP 36.9; O2SAT 98
[2025-06-16] VITALS (15 sets, daily range): BP systolic 118–186; BP diastolic 50–101; PULSE 60–76; RESP 16–20; TEMP 36.2–36.8; O2SAT 95–100
[2025-06-16 13:13] LABS: HEMATOCRIT. 34.3 % (36.0-48.0); HEMOGLOBIN. 10.4 g/dL (12.0-16.0); MEAN PLATELET VOLUME 8.8 fl (7.4-10.4); PLATELET 153 x1000/uL (130-400); RED BLOOD CELL COUNT 4.18 mill/uL (4.2-5.4); RED CELL DISTRIBUTION WIDTH 23.1 % (11.6-14.6)
[2025-06-16 13:59] LABS: BAND% 1.0 % (1.0-6.0); BASOPHILS % MANUAL 1.0 % (0.0-2.0); EOSINOPHILS % MANUAL 5.0 % (0.0-5.0); LYMPHOCYTES % MANUAL 9.0 % (20.0-60.0); MONOCYTES % MANUAL 5.0 % (2.0-8.0); NEUTROPHILS % MANUAL 79.0 % (45.0-75.0)
[2025-06-16 14:00] LABS: PLATELET ESTIMATE NORMAL
[2025-06-16] MEDS: CLONIDINE 0.1MG TABLET PO PRN (17:33)
== END 2025-06-16 20:16 | disposition home or self-care (01) | DRG 291 ==
LOC: ER 06:26 → 7WST 09:12 → EDBEDREQ 09:15 → EDBEDREQTM 09:15 → ENRESERV 09:19 → 7WST 10:57
PROVIDERS: ADMIT Internal Medicine; ATTEND Internal Medicine
PROC: 5A1D70Z Performance of Urinary Filtration, Intermittent, Less than 6 Hours Per Day (ICD-10-PCS; principal; 2025-06-14)
PROC: 5A1D70Z Performance of Urinary Filtration, Intermittent, Less than 6 Hours Per Day (ICD-10-PCS; 2025-06-16)
DX: I13.2 Hypertensive heart and chronic kidney disease with heart failure and with stage 5 chronic kidney disease, or end stage renal disease (principal); I50.43 Acute on chronic combined systolic (congestive) and diastolic (congestive) heart failure; J96.01 Acute respiratory failure with hypoxia; N18.6 End stage renal disease; I16.1 Hypertensive emergency; F03.93 Unspecified dementia, unspecified severity, with mood disturbance; I25.10 Atherosclerotic heart disease of native coronary artery without angina pectoris; Z95.1 Presence of aortocoronary bypass graft; I34.0 Nonrheumatic mitral (valve) insufficiency; D63.1 Anemia in chronic kidney disease; E11.22 Type 2 diabetes mellitus with diabetic chronic kidney disease; Z20.822 Contact with and (suspected) exposure to COVID-19; E11.65 Type 2 diabetes mellitus with hyperglycemia; E11.51 Type 2 diabetes mellitus with diabetic peripheral angiopathy without gangrene; G40.909 Epilepsy, unspecified, not intractable, without status epilepticus; E11.42 Type 2 diabetes mellitus with diabetic polyneuropathy; E83.39 Other disorders of phosphorus metabolism; E83.52 Hypercalcemia; F32.A Depression, unspecified; J44.9 Chronic obstructive pulmonary disease, unspecified; K21.9 Gastro-esophageal reflux disease without esophagitis; Z79.899 Other long term (current) drug therapy; Z82.49 Family history of ischemic heart disease and other diseases of the circulatory system; Z86.73 Personal history of transient ischemic attack (TIA), and cerebral infarction without residual deficits; Z87.891 Personal history of nicotine dependence; Z88.0 Allergy status to penicillin; Z88.5 Allergy status to narcotic agent; Z90.49 Acquired absence of other specified parts of digestive tract; Z99.2 Dependence on renal dialysis; Z99.3 Dependence on wheelchair
CPT/HCPCS: 36415; 71045; 80048; 82330; 82542; 82550; 82607; 82746; 82962; 83036; 83540; 83550; 83880; 84484; 85025; 85044; 86850; 86900; 87426; 87804; 90935; 93005; 99285; J1650; J1938; J2405; J3490

== ENCOUNTER 2025-06-22 23:14 | Inpatient (IN) | payer OTHER ==
[~2025-06-22] VITALS: Ht 154.9 cm; Wt 48.1 kg
[2025-06-22] MEDS ORDERED: MORPHINE SULFATE 4 MG/ML INJ (FOR IV/IM USE) IV ONE (23:30)
[2025-06-22 23:35] VITALS: O2SAT 98
[2025-06-23] VITALS (13 sets, daily range): BP systolic 102–167; BP diastolic 58–83; PULSE 61–85; RESP 18–20; TEMP 36.4–36.7; O2SAT 95–100
[2025-06-23 01:41] LABS: BASOPHILS % 0.7 % (0.0-2.0); EOSINOPHILS % 0.7 % (0.0-5.0); HEMATOCRIT. 36.5 % (36.0-48.0); HEMOGLOBIN. 10.9 g/dL (12.0-16.0); LYMPHOCYTES % 7.2 % (20.0-50.0); MEAN PLATELET VOLUME 8.8 fl (7.4-10.4); MONOCYTES % 6.5 % (2.0-8.0); NEUTROPHILS % 84.9 % (40.0-76.0); PLATELET 195 x1000/uL (130-400); RED BLOOD CELL COUNT 4.34 mill/uL (4.2-5.4); RED CELL DISTRIBUTION WIDTH 23.3 % (11.6-14.6)
[2025-06-23 01:53] LABS: INR 1.2
[2025-06-23] MEDS: ONDANSETRON HCL 4MG/2ML INJ IV ONE (02:03)
[2025-06-23 02:08] LABS: CREATININE 4.2 mg/dL (0.6-1.0); UREA NITROGEN BLOOD 28 mg/dL (9-23)
[2025-06-23 02:10] LABS: ASPARTATE AMINOTRANSFERASE 23 IU/L (<34); BILIRUBIN DIRECT 0.2 mg/dL (<=3.0); BILIRUBIN TOTAL 0.6 mg/dL (0.1-1.0); PROTEIN TOTAL 7.1 g/dL (6.0-8.3)
[2025-06-23] MEDS: MORPHINE SULFATE 4 MG/ML INJ (FOR IV/IM USE) IV SCH (02:12)
[2025-06-23 02:21] LABS: TROPONIN I HIGH SENSITIVITY 247 ng/L (3.0-34)
[2025-06-23] MEDS: SODIUM ZIRCONIUM CYCLOSILICATE 10GM/PACKET PO SCH (03:09)
[2025-06-23] MEDS: HEPARIN 60 UNITS/KG BOLUS IV SCH (03:48)
[2025-06-23] MEDS: HEPARIN 25,000 UNITS PREMIX 250 ML IV SCH (03:49)
[2025-06-23] MEDS ORDERED: HEPARIN BOLUS PRN aPTT 30-44 IV (09:30)
[2025-06-23] MEDS ORDERED: HEPARIN BOLUS PRN aPTT <30 IV (09:30)
[2025-06-23] MEDS ORDERED: ONDANSETRON HCL 4MG/2ML INJ IV PRN (12:00)
[2025-06-23] MEDS ORDERED: IPRATROPIUM/ALBUTEROL 0.5-3(2.5)MG/3ML NEB HHN PRN (12:00)
[2025-06-23] MEDS ORDERED: CLONIDINE 0.1MG TABLET PO PRN (12:00)
[2025-06-23] MEDS ORDERED: ACETAMINOPHEN 325MG TABLET PO PRN (12:00)
[2025-06-23] MEDS ORDERED: NITROGLYCERIN 0.4MG TABLET SL SL PRN (12:15)
[2025-06-23] MEDS: SODIUM ZIRCONIUM CYCLOSILICATE 10GM/PACKET PO NR (13:20)
[2025-06-23] MEDS: ENOXAPARIN 30MG/0.3ML SYR SUBCUT SCH (13:20)
[2025-06-23] MEDS: HYDRALAZINE HCL 100MG TABLET PO SCH (13:21)
[2025-06-23] MEDS ORDERED: BISACODYL 10MG SUPP PR NR (14:15)
[2025-06-23] MEDS ORDERED: LISI40TA21 MT (16:08)
[2025-06-23] MEDS ORDERED: VILA20TA PO (16:08)
[2025-06-23] MEDS ORDERED: ISOS120T13 PO (16:08)
[2025-06-23] MEDS ORDERED: SEVE800T8 MT (16:08)
[2025-06-23] MEDS ORDERED: MAGNESIUM HYDROXIDE 400MG/5ML 30ML UDC PO PRN (16:45)
[2025-06-23] MEDS ORDERED: SENNOSIDES/DOCUSATE SOD 8.6/50MG TABLET PO PRN (16:45)
[2025-06-23] MEDS: CINACALCET HCL 60MG TABLET PO SCH (17:04)
[2025-06-23] MEDS: BLOOD SUGAR DIAGNOSTIC STRIP TEST SCH (17:42)
[2025-06-23] MEDS: MAGNESIUM HYDROXIDE 400MG/5ML 30ML UDC PO NR (17:44)
[2025-06-23] MEDS: CARVEDILOL 6.25 MG TABLET PO SCH (21:00)
[2025-06-23] MEDS: NIFEDIPINE XL 60MG TAB PO SCH (21:00)
[2025-06-23] MEDS: ATORVASTATIN CALCIUM 40MG TABLET PO SCH (23:00)
[2025-06-23] MEDS: LEVETIRACETAM 500MG TABLET PO SCH (23:01)
[2025-06-23] MEDS: MIRTAZAPINE 15MG TABLET PO SCH (23:01)
[2025-06-24] VITALS: BP 124/50; PULSE 66; RESP 19; TEMP 36.3; O2SAT 96
[2025-06-24 01:12] LABS: CREATINE KINASE MB FRACTION 1.8 ng/mL (0.5-3.6)
[2025-06-24 01:29] LABS: TROPONIN I HIGH SENSITIVITY 539.0 ng/L (3.0-34)
[2025-06-24 01:51] LABS: HEPATITIS A AB IGM NEGATIVE (Negative)
[2025-06-24 01:52] LABS: HEPATITIS B CORE AB IGM NEGATIVE (Negative); HEPATITIS C AB NON REACTIVE (Neg) (Negative)
[2025-06-24 02:20] LABS: INR 1.1
[2025-06-24 04:00] VITALS: BP 112/51; PULSE 65; RESP 19; TEMP 36.2; O2SAT 95
[2025-06-24] MEDS: ENOXAPARIN 30MG/0.3ML SYR SUBCUT SCH ×2 (04:39→13:19)
[2025-06-24 05:17] LABS: CREATININE 3.5 mg/dL (0.6-1.0); UREA NITROGEN BLOOD 19 mg/dL (9-23)
[2025-06-24 05:18] LABS: ASPARTATE AMINOTRANSFERASE 26 IU/L (<34); BILIRUBIN DIRECT 0.2 mg/dL (<=3.0); BILIRUBIN TOTAL 0.5 mg/dL (0.1-1.0); PROTEIN TOTAL 6.5 g/dL (6.0-8.3)
[2025-06-24 05:19] LABS: PHOSPHORUS 3.5 mg/dL (2.5-4.9)
[2025-06-24 05:34] LABS: TROPONIN I HIGH SENSITIVITY 697 ng/L (3.0-34)
[2025-06-24] MEDS: DEXTROSE 50% WATER 50ML SYRINGE IV PRN (06:14)
[2025-06-24 07:21] LABS: BASOPHILS % 0.5 % (0.0-2.0); EOSINOPHILS % 6.8 % (0.0-5.0); HEMATOCRIT. 30.6 % (36.0-48.0); HEMOGLOBIN. 9.4 g/dL (12.0-16.0); LYMPHOCYTES % 15.8 % (20.0-50.0); MEAN PLATELET VOLUME 9.5 fl (7.4-10.4); MONOCYTES % 12.2 % (2.0-8.0); NEUTROPHILS % 64.7 % (40.0-76.0); PLATELET 166 x1000/uL (130-400); RED BLOOD CELL COUNT 3.74 mill/uL (4.2-5.4); RED CELL DISTRIBUTION WIDTH 22.2 % (11.6-14.6)
[2025-06-24 07:35] LABS: ADD RBC MORPHOLOGY YES
[2025-06-24 08:00] VITALS: BP 117/60; PULSE 60; RESP 20; TEMP 36.9; O2SAT 100
[2025-06-24] MEDS ORDERED: FERROUS SULFATE 325MG TABLET PO SCH (09:00)
[2025-06-24] MEDS ORDERED: NIFEDIPINE XL 60MG TAB PO SCH (09:00)
[2025-06-24] MEDS: PANTOPRAZOLE SODIUM 40 MG/VIAL IV SCH (09:13)
[2025-06-24] MEDS: ASPIRIN 81MG EC TABLET PO SCH (09:13)
[2025-06-24] MEDS: ISOSORBIDE MONONITRATE 30MG TABLET SR 24HR PO SCH (09:13)
[2025-06-24] MEDS: NA PHOS,M-B/NA PHOS,DI-BA ENEMA 118ML PR ONE (11:33)
[2025-06-24 12:00] VITALS: BP 117/60; PULSE 61; RESP 20; TEMP 36.8; O2SAT 97
[2025-06-24 12:44] LABS: PLATELET ESTIMATE NORMAL
[2025-06-24] MEDS: HYDRALAZINE HCL 50MG TABLET PO SCH (13:00)
[2025-06-24] MEDS ORDERED: ENOXAPARIN 60MG/0.6ML SYR SUBCUT SCH (13:00)
[2025-06-24] MEDS: POLYETHYLENE GLYCOL 3350 (17GM) 1 DOSE PACK PO SCH (13:19)
[2025-06-24 16:00] VITALS: BP 149/63; PULSE 66; RESP 18; TEMP 37.2
[2025-06-24 18:59] LABS: TROPONIN I HIGH SENSITIVITY 676 ng/L (3.0-34)
[2025-06-24 20:00] VITALS: BP 103/40; PULSE 55; RESP 17; TEMP 36.4; O2SAT 99
[2025-06-25] VITALS (8 sets, daily range): BP systolic 114–160; BP diastolic 45–66; PULSE 58–74; RESP 17–18; TEMP 36.4–36.6; O2SAT 97–99
[2025-06-25 00:24] LABS: TROPONIN I HIGH SENSITIVITY 563 ng/L (3.0-34)
[2025-06-25] MEDS: ACETAMINOPHEN 325MG TABLET PO PRN (08:57)
[2025-06-25 09:00] LABS: UREA NITROGEN BLOOD 28.0 mg/dL (9-23)
[2025-06-25 09:07] LABS: CREATININE 5.0 mg/dL (0.6-1.0)
[2025-06-25] MEDS: SENNOSIDES/DOCUSATE SOD 8.6/50MG TABLET PO SCH (16:22)
[2025-06-25] MEDS: POLYETHYLENE GLYCOL 3350 (17GM) 1 DOSE PACK PO SCH (16:22)
== END 2025-06-25 22:00 | disposition short-term general hospital (02) | DRG 189 ==
LOC: ER 23:29 → EDBEDREQ 23:44 → 8WST 06-23 03:06 → EDBEDREQ 06-23 03:42 → EDBEDREQTM 06-23 03:42 → EDBEDREQDT 06-23 03:42 → CANRESERV 06-23 05:03 → ENRESERV 06-23 05:03
PROVIDERS: ADMIT Hospitalist; ATTEND Hospitalist
PROC: 5A1D70Z Performance of Urinary Filtration, Intermittent, Less than 6 Hours Per Day (ICD-10-PCS; principal; 2025-06-23)
DX: J96.01 Acute respiratory failure with hypoxia (principal); I21.A1 Myocardial infarction type 2; N18.6 End stage renal disease; I13.2 Hypertensive heart and chronic kidney disease with heart failure and with stage 5 chronic kidney disease, or end stage renal disease; J84.9 Interstitial pulmonary disease, unspecified; N25.81 Secondary hyperparathyroidism of renal origin; I50.42 Chronic combined systolic (congestive) and diastolic (congestive) heart failure; K56.41 Fecal impaction; I25.10 Atherosclerotic heart disease of native coronary artery without angina pectoris; E11.22 Type 2 diabetes mellitus with diabetic chronic kidney disease; I35.0 Nonrheumatic aortic (valve) stenosis; E83.52 Hypercalcemia; G40.909 Epilepsy, unspecified, not intractable, without status epilepticus; D63.8 Anemia in other chronic diseases classified elsewhere; E78.5 Hyperlipidemia, unspecified; K57.30 Diverticulosis of large intestine without perforation or abscess without bleeding; E11.51 Type 2 diabetes mellitus with diabetic peripheral angiopathy without gangrene; F03.90 Unspecified dementia, unspecified severity, without behavioral disturbance, psychotic disturbance, mood disturbance, and anxiety; D50.9 Iron deficiency anemia, unspecified; K21.9 Gastro-esophageal reflux disease without esophagitis; E87.5 Hyperkalemia; Z66 Do not resuscitate; Z99.2 Dependence on renal dialysis; Z88.5 Allergy status to narcotic agent; Z82.49 Family history of ischemic heart disease and other diseases of the circulatory system; Z88.0 Allergy status to penicillin; Z95.1 Presence of aortocoronary bypass graft; Z79.82 Long term (current) use of aspirin; Z79.899 Other long term (current) drug therapy; Z90.49 Acquired absence of other specified parts of digestive tract
CPT/HCPCS: 36415; 71045; 74176; 80048; 80076; 80320; 82550; 82553; 82962; 83735; 83880; 84100; 84484; 85025; 86705; 86709; 87340; 90935; 93005; 93970; 99291; J1644; J1650; J2270; J2405; J2470; G0480

== ENCOUNTER 2025-07-17 09:24 | Inpatient (IN) | payer MEDICARE, OTHER ==
[~2025-07-17] VITALS: Ht 144.8 cm; Wt 49.0 kg
[2025-07-17] VITALS (12 sets, daily range): BP systolic 109–218; BP diastolic 49–103; PULSE 56–75; RESP 16–20; TEMP 36.114–36.8; O2SAT 93–100
[~2025-07-17 09:24] MED LIST changes: -ISOS10TA95 PO; +ISOS120T13 PO; -LISI20TA31 PO; +LISI40TA21 MT; -ROSU40TA PO; +SEVE800T8 MT; +VILA20TA PO
[2025-07-17 10:37] LABS: BASOPHILS % 0.9 % (0.0-2.0); EOSINOPHILS % 1.5 % (0.0-5.0); HEMATOCRIT. 34.4 % (36.0-48.0); HEMOGLOBIN. 10.7 g/dL (12.0-16.0); LYMPHOCYTES % 14.3 % (20.0-50.0); MEAN PLATELET VOLUME 8.8 fl (7.4-10.4); MONOCYTES % 8.5 % (2.0-8.0); NEUTROPHILS % 74.8 % (40.0-76.0); PLATELET 200 x1000/uL (130-400); RED BLOOD CELL COUNT 4.22 mill/uL (4.2-5.4); RED CELL DISTRIBUTION WIDTH 23.3 % (11.6-14.6)
[2025-07-17 10:39] LABS: ADD RBC MORPHOLOGY YES
[2025-07-17] MEDS: HYDRALAZINE 20MG/ML VIAL IV ONE (10:47)
[2025-07-17 10:55] LABS: UREA NITROGEN BLOOD 77 mg/dL (9-23)
[2025-07-17 10:56] LABS: TROPONIN I HIGH SENSITIVITY 22 ng/L (3.0-34)
[2025-07-17 10:59] LABS: ASPARTATE AMINOTRANSFERASE 24 IU/L (<34); BILIRUBIN DIRECT 0.1 mg/dL (<=3.0)
[2025-07-17 11:00] LABS: BILIRUBIN TOTAL 0.3 mg/dL (0.1-1.0); PROTEIN TOTAL 7.1 g/dL (6.0-8.3)
[2025-07-17 11:29] LABS: CREATININE 7.9 mg/dL (0.6-1.0)
[2025-07-17] MEDS ORDERED: ALBUTEROL (0.5%) 2.5MG/0.5ML NEB HHN ONE (12:00)
[2025-07-17] MEDS: INSULIN REGULAR (HUMULIN R) 1000UNITS/10ML VIAL IV ONE (12:16)
[2025-07-17] MEDS: DEXTROSE 50% WATER 50ML SYRINGE IV ONE (12:16)
[2025-07-17 12:27] LABS: PLATELET ESTIMATE NORMAL
[2025-07-17] MEDS: CALCIUM GLUCONATE 100MG/ML 10ML VIAL IV ONE (12:29)
[2025-07-17] MEDS: ALBUTEROL (0.5%) 2.5MG/0.5ML NEB HHN NR (12:31)
[2025-07-17 13:04] LABS: TROPONIN I HIGH SENSITIVITY 22 ng/L (3.0-34)
[2025-07-17] MEDS: NITROGLYCERIN OINT 1GM/INCH UDPKT TD ONE (14:08)
[2025-07-17] MEDS ORDERED: ACETAMINOPHEN 325MG TABLET PO PRN ×2 (16:30)
[2025-07-17] MEDS ORDERED: ONDANSETRON HCL 4MG/2ML INJ IV PRN (16:30)
[2025-07-17] MEDS ORDERED: MAGNESIUM/ALUMINUM HYDROXIDE/SIMETHICONE 30ML UDC PO PRN (16:30)
[2025-07-17] MEDS ORDERED: CLONIDINE 0.1MG TABLET PO PRN (16:30)
[2025-07-17] MEDS ORDERED: IPRATROPIUM/ALBUTEROL 0.5-3(2.5)MG/3ML NEB HHN PRN (16:30)
[2025-07-17] MEDS ORDERED: CARVEDILOL 6.25 MG TABLET PO SCH (18:00)
[2025-07-17] MEDS ORDERED: NIFEDIPINE XL 60MG TAB PO SCH (18:00)
[2025-07-17] MEDS ORDERED: HYDRALAZINE HCL 100MG TABLET PO SCH (18:00)
[2025-07-17] MEDS ORDERED: DEXTROSE 50% WATER 50ML SYRINGE IV PRN (18:15)
[2025-07-17] MEDS: SEVELAMER CARBONATE 800 MG TABLET PO SCH (18:31)
[2025-07-17] MEDS ORDERED: LEVETIRACETAM 500MG/5ML CUP PO SCH (21:00)
[2025-07-17] MEDS: BLOOD SUGAR DIAGNOSTIC STRIP TEST SCH (21:00)
[2025-07-17] MEDS ORDERED: LISINOPRIL 40MG TABLET PO SCH (21:00)
[2025-07-17] MEDS: HYDRALAZINE HCL 25MG TABLET PO SCH ×2 (21:00→21:56)
[2025-07-17] MEDS: ATORVASTATIN CALCIUM 40MG TABLET PO SCH (21:00)
[2025-07-17] MEDS: CARVEDILOL 6.25 MG TABLET PO SCH (21:00)
[2025-07-17] MEDS: PANTOPRAZOLE SODIUM 40 MG/VIAL IV SCH (21:49)
[2025-07-17] MEDS: LEVETIRACETAM 500MG TABLET PO SCH (21:50)
[2025-07-17] MEDS: NIFEDIPINE XL 60MG TAB PO SCH (21:57)
[2025-07-18] VITALS (7 sets, daily range): BP systolic 108–136; BP diastolic 51–60; PULSE 55–70; RESP 17–20; TEMP 36.5–36.8; O2SAT 95–99
[2025-07-18 00:23] LABS: TROPONIN I HIGH SENSITIVITY 24 ng/L (3.0-34)
[2025-07-18] MEDS: FERROUS SULFATE 325MG TABLET PO SCH (06:40)
[2025-07-18] MEDS ORDERED: PANTOPRAZOLE 40MG DR TABLET PO SCH (07:10)
[2025-07-18 08:37] LABS: HEMATOCRIT. 30.9 % (36.0-48.0); HEMOGLOBIN. 9.6 g/dL (12.0-16.0); MEAN PLATELET VOLUME 9.3 fl (7.4-10.4); PLATELET 148 x1000/uL (130-400); RED BLOOD CELL COUNT 3.83 mill/uL (4.2-5.4); RED CELL DISTRIBUTION WIDTH 23.5 % (11.6-14.6)
[2025-07-18] MEDS: FOLIC ACID/VITAMIN B COMP W-C TABLET PO SCH (08:44)
[2025-07-18] MEDS: ASPIRIN 81MG EC TABLET PO SCH (08:45)
[2025-07-18 08:52] LABS: TROPONIN I HIGH SENSITIVITY 28 ng/L (3.0-34)
[2025-07-18] MEDS: CINACALCET HCL 30MG TABLET PO SCH (08:57)
[2025-07-18 08:58] LABS: T4 FREE 1.13 ng/dL (0.89-1.76); UREA NITROGEN BLOOD 31.0 mg/dL (9-23)
[2025-07-18 09:00] LABS: PHOSPHORUS 5.0 mg/dL (2.5-4.9)
[2025-07-18] MEDS: ENOXAPARIN 30MG/0.3ML SYR SUBCUT SCH (09:00)
[2025-07-18 09:31] LABS: CREATININE 4.8 mg/dL (0.6-1.0)
[2025-07-19 16:46] LABS: LYMPHOCYTES % MANUAL 2.0 % (20.0-60.0); MONOCYTES % MANUAL 5.0 % (2.0-8.0); NEUTROPHILS % MANUAL 93.0 % (45.0-75.0); PLATELET ESTIMATE NORMAL
== END 2025-07-18 18:16 | disposition short-term general hospital (02) | DRG 640 ==
LOC: ER 09:24 → 8WST 14:00 → EDBEDREQ 14:04 → ENRESERV 14:39
PROVIDERS: ADMIT Internal Medicine; ATTEND Internal Medicine
PROC: 5A1D70Z Performance of Urinary Filtration, Intermittent, Less than 6 Hours Per Day (ICD-10-PCS; principal; 2025-07-17)
DX: E87.5 Hyperkalemia (principal); N18.6 End stage renal disease; I13.2 Hypertensive heart and chronic kidney disease with heart failure and with stage 5 chronic kidney disease, or end stage renal disease; E87.20 Acidosis, unspecified; D64.9 Anemia, unspecified; E11.22 Type 2 diabetes mellitus with diabetic chronic kidney disease; Z99.2 Dependence on renal dialysis; F03.90 Unspecified dementia, unspecified severity, without behavioral disturbance, psychotic disturbance, mood disturbance, and anxiety; F32.A Depression, unspecified; G40.909 Epilepsy, unspecified, not intractable, without status epilepticus; I50.9 Heart failure, unspecified; K21.9 Gastro-esophageal reflux disease without esophagitis; E78.5 Hyperlipidemia, unspecified; K57.30 Diverticulosis of large intestine without perforation or abscess without bleeding; E11.51 Type 2 diabetes mellitus with diabetic peripheral angiopathy without gangrene; I25.10 Atherosclerotic heart disease of native coronary artery without angina pectoris; Z79.899 Other long term (current) drug therapy; Z82.49 Family history of ischemic heart disease and other diseases of the circulatory system; Z88.0 Allergy status to penicillin; Z88.5 Allergy status to narcotic agent; Z90.49 Acquired absence of other specified parts of digestive tract; Z95.1 Presence of aortocoronary bypass graft; Z88.8 Allergy status to other drugs, medicaments and biological substances; G62.9 Polyneuropathy, unspecified; Z91.158 Patient's noncompliance with renal dialysis for other reason
CPT/HCPCS: 36415; 71045; 74176; 80048; 80076; 82550; 82962; 83735; 84100; 84439; 84443; 84481; 84484; 85025; 90935; 93005; 94640; 99291; J0360; J0612; J1650; J1815; J2470

== ENCOUNTER 2025-08-21 10:40 | Emergency (ER) | payer MEDICARE, OTHER ==
[~2025-08-21] VITALS: Ht 167.6 cm; Wt 65.0 kg
[2025-08-21 10:42] VITALS: O2SAT 98
[2025-08-21] MEDS: ONDANSETRON HCL 4MG/2ML INJ IV ONE (12:11)
[2025-08-21 12:15] LABS: HEMATOCRIT. 34.8 % (36.0-48.0); HEMOGLOBIN. 11.0 g/dL (12.0-16.0); MEAN PLATELET VOLUME 8.4 fl (7.4-10.4); PLATELET 222 x1000/uL (130-400); RED BLOOD CELL COUNT 4.43 mill/uL (4.2-5.4); RED CELL DISTRIBUTION WIDTH 23.4 % (11.6-14.6)
[2025-08-21] MEDS: SODIUM CHLORIDE 0.9% 500 ML IV ONE (12:17)
[2025-08-21 12:32] LABS: UREA NITROGEN BLOOD 44.0 mg/dL (9-23)
[2025-08-21 12:39] LABS: CREATININE 6.7 mg/dL (0.6-1.0)
[2025-08-21 12:42] LABS: TROPONIN I HIGH SENSITIVITY 39 ng/L (3.0-34)
[2025-08-21 14:02] LABS: LYMPHOCYTES % MANUAL 14.0 % (20.0-60.0); MONOCYTES % MANUAL 17.0 % (2.0-8.0); NEUTROPHILS % MANUAL 69.0 % (45.0-75.0)
[2025-08-21] MEDS ORDERED: IPRATROPIUM/ALBUTEROL 0.5-3(2.5)MG/3ML NEB HHN PRN (14:15)
[2025-08-21] MEDS ORDERED: ONDANSETRON HCL 4MG/2ML INJ IV PRN (14:15)
[2025-08-21] MEDS ORDERED: MAGNESIUM/ALUMINUM HYDROXIDE/SIMETHICONE 30ML UDC PO PRN (14:15)
[2025-08-21] MEDS ORDERED: ACETAMINOPHEN 325MG TABLET PO PRN ×2 (14:15)
[2025-08-21 14:19] VITALS: BP 167/53; PULSE 68; RESP 12; TEMP 37.3; O2SAT 97
[2025-08-21 14:26] LABS: PLATELET ESTIMATE NORMAL
[2025-08-21 15:39] LABS: PHOSPHORUS 7.5 mg/dL (2.5-4.9)
[2025-08-21 15:42] LABS: FOLIC ACID (FOLATE) SERUM > 20.00 ng/mL (>5.38)
[2025-08-23] MEDS ORDERED: FAMOTIDINE 20MG/2ML VIAL IV SCH (09:00)
== END 2025-08-21 14:52 | disposition short-term general hospital (02) ==
LOC: ER 10:40 → CANBEDREQ 13:32 → ER 14:52
DX: R07.2 Precordial pain (principal); K52.9 Noninfective gastroenteritis and colitis, unspecified; I10 Essential (primary) hypertension; E11.9 Type 2 diabetes mellitus without complications; Z79.899 Other long term (current) drug therapy; Z88.0 Allergy status to penicillin; Z88.1 Allergy status to other antibiotic agents; Z88.5 Allergy status to narcotic agent; Z88.6 Allergy status to analgesic agent
CPT/HCPCS: 99285; 96374; 71045; 80048; 82728; 82746; 83036; 83540; 83550; 83735; 84100; 85025; 84484; 36415; 84145; 93005; J2405; J7040; 96361; A4606